=== PATIENT | female | born 1935 | race Caucasian/White ===

== ENCOUNTER 2019-11-03 09:18 | Outpatient (CLI) | payer MEDICARE, SELFPAY ==
--- NOTE | ~2019-11-03 | XR_ITS ---
EXAMINATION: XR chest 2V 11/03/2019 10:08 INDICATION: Cough, chronic. PROCEDURE: 2 view chest COMPARISON: Comparison to multiple prior studies sequentially, with oldest reviewed study dated 03/24. FINDINGS: The lungs are clear. The cardiomediastinal silhouette is within normal limits. There are no pleural effusions. There is no pneumothorax suspected. Interval placement of pacemaker, leads in the right atrium and right ventricle respectively. IMPRESSION: 1: NO ACUTE CARDIOPULMONARY DISEASE. Reviewed, dictated and finalized at location A. ALLY IMPAIRED TEACHER
[2019-11-03 11:22] LABS: Hemoglobin A1C 6.6 % (<5.7)
== END 2019-11-03 09:19 | disposition home or self-care (01) ==
PROVIDERS: PCP Family Medicine; Visit Provider Family Medicine
DX: R05 Cough (principal); R73.01 Impaired fasting glucose
CPT/HCPCS: 36415; 71046; 83036

== ENCOUNTER 2020-06-20 13:25 | Outpatient (CLI) | payer MEDICARE, SELFPAY ==
--- NOTE | ~2020-06-20 | US_ITS ---
US breast RT limited DATE: 06/20/2020 13:58 INDICATION: Patient fell one week ago and struck right breast on nightstand. Right breast trauma; he matoma to right breast at 10-12:00 4 cm from nipple. TECHNIQUE: High-resolution ultrasound imaging of the right breast targeted at the area of complaint a t 10-12:00 COMPARISON: 04/13/2019 bilateral digital screening mammogram FINDINGS: There are multiple scattered sonolucent spaces, the largest measuring 4.7 x 8 mm. No suspic ious mass or shadowing is evident. IMPRESSION: BI-RADS Category 2: Benign Reviewed, dictated and finalized at Location A. Reviewed, dictated and finalized at location A. IMPRESSION: BI-RADS Category 2: Benign
== END 2020-06-20 13:26 | disposition home or self-care (01) ==
LOC: ANHIMG 13:32
PROVIDERS: PCP Family Medicine; Visit Provider Nurse Practitioner
DX: S20.01XA Contusion of right breast, initial encounter (principal); X58.XXXA Exposure to other specified factors, initial encounter; N64.4 Mastodynia
CPT/HCPCS: 76642

== ENCOUNTER 2020-12-05 13:18 | Outpatient (CLI) | payer MEDICARE, SELFPAY | END 2020-12-05 13:19 | disposition home or self-care (01) | LOC: ANHLAB 13:18 | PROVIDERS: PCP Internal Medicine; Visit Provider Internal Medicine | DX: N39.0 Urinary tract infection, site not specified (principal) | CPT/HCPCS: 87077; 87086; 87088 ==

== ENCOUNTER 2020-12-07 10:35 | Outpatient (CLI) | payer MEDICARE, SELFPAY | END 2020-12-07 10:36 | disposition home or self-care (01) | PROVIDERS: PCP Internal Medicine; Visit Provider Internal Medicine | DX: N39.0 Urinary tract infection, site not specified (principal) | CPT/HCPCS: 87086; 87088 ==

== ENCOUNTER 2020-12-09 08:30 | Emergency (ER) | payer MEDICARE, SELFPAY ==
[2020-12-09] VITALS (14 sets, daily range): BP systolic 105–179; BP diastolic 59–89; PULSE 70–73; RESP 14–20; TEMP 37.1; O2SAT 94–99
--- NOTE | ~2020-12-09 | CT_ITS ---
EXAMINATION: CT brain wo con EXAM DATE: 12/09/2020 11:08 INDICATION: Dizziness. Symptoms 6 hours. Nausea and vomiting. TECHNIQUE: Spiral CT of the head was performed without contrast. Axial, coronal and sagittal images were reviewed. The dose-length product (DLP) for this examination was 605.33 mGy-cm. The exposure w as tailored according to patient size, and iterative reconstruction (ASIR) was used as additional dos e reduction technique. Comparison is made to prior examination from 12/19/2019. FINDINGS: There is no acute intraparenchymal hemorrhage. No evidence of intraparenchymal brain mass lesion. No evidence of acute infarction. Please note that initial head CT has limited sensitivity f or small or acute infarctions. There is moderate periventricular and subcortical hypodensity, nonspec ific but probably related to small vessel ischemic disease. There is mild to moderate prominence of the sulci and ventricles related to cerebral atrophy. There is intracranial carotid arterioscleros is. There are no extra-axial collections. There is no mass effect or midline shift. The orbits are unremarkable. Soft tissue is unremarkable. Mild mucoperiosteal thickening. IMPRESSION: 1. No acute intracranial findings. 2. Chronic age related findings. Reviewed, dictated and finalized at location B. ICIAN NON INVASIVE CARDIOLOGIST
--- NOTE | 2020-12-09 08:33 | ECG_ITS ---
Measurements Intervals [place] Rate: 70 P: 219 IN: 195 QRS: 45 QRSD: 95 T: 62 QT: 390 QTc: 421 Interpretive Statements ELECTRONIC ATRIAL PACEMAKER BORDERLINE ST-T WAVE ABNORMALITY- ANTEROLAT/HIGH LAT LEADS BASELINE ARTIFACT- II, III, AVF, V1, V5-V6 BORDERLINE ECG Electronically Signed On 12-09-2020 8:52:39 MANUFACTURING TECH by Aditya South D.O.
[2020-12-09 09:01] LABS: Basophils Percent Auto 0.3 % (0.2-1.2); Eosinophils Absolute Auto 0.1 K/mm3 (0-0.3); Eosinophils Percent Auto 0.8 % (0-4.4); Hematocrit 40.2 % (37.0-47.0); Hemoglobin 13.5 g/dL (12.0-15.0); Immature Granulocyte Absolute 0.03 K/mm3 (0.00-0.031); Immature Granulocyte Percent A 0.3 % (0-0.5); Lymphocytes Absolute Auto 1.65 K/mm3 (0.9-3.2); Lymphocytes Percent Auto 14.9 % (18.3-44.2); Mean Corpuscular HGB Conc 33.6 g/dl (32-36); Mean Corpuscular Hemoglobin 31.5 pg (26-34); Mean Corpuscular Volume 93.9 fl (80-100); Mean Platelet Volume 9.5 fl (7.4-10.4); Monocytes Absolute Auto 0.4 K/mm3 (0.1-0.6); Neutrophils Absolute Auto 8.9 K/mm3 (1.3-6.7); Neutrophils Percent Auto 79.7 % (45.5-73.1); Platelet Count Result 184 k/mm3 (150-375); Red Blood Count 4.28 M/mm3 (4.2-5.4); Red Cell Distribution Width 12.1 % (11.5-14.5); White Blood Count 11.1 K/mm3 (4.5-10.0)
[2020-12-09 09:13] LABS: Add Urine Microscopic? NO; Appearance Urine Clear (Clear); Bilirubin Urine Negative (Negative); Blood Urine Negative (Negative); Color Urine Yellow (Yellow); Glucose Urine UA Negative (Negative); Ketones Urine Negative (Negative); Leukocyte Esterase Ur Negative LEU/UL (Negative); Nitrate Urine Negative (Negative); Protein Urine Negative (Negative); Urobilinogen Urine Negative mg/dL (<2.0)
[2020-12-09 09:14] LABS: Alanine Aminotransferase 21 U/L (4-35); Albumin Level 4.2 g/dL (3.5-5.1); Alkaline Phosphatase 90 U/L (38-126); Anion Gap 5 mmol/L (8-16); Aspartate Amino Transferase 30 U/L (14-36); Bilirubin,Total 0.4 mg/dL (0.2-1.3); Blood Urea Nitrogen 29 mg/dL (7-17); Calcium 9.6 mg/dL (8.4-10.2); Carbon Dioxide 26 mmol/L (22-30); Chloride 107 mmol/L (98-107); Estimated CRCL calculation 39 ml/min; Estimated Glomerular Filt Rate 60; Glucose 181 mg/dL (65-105); Potassium 3.9 mmol/L (3.4-5.0); Sodium 138 mmol/L (137-145)
--- NOTE | 2020-12-09 11:04 | ED.DIZZY ---
HPI - Dizziness General Chief Complaint: Dizziness Stated Complaint: vertigo, n/v, weakness Time Seen by Provider: 12/09/20 10:00 Source: patient Mode of arrival: EMS Limitations: no limitations History of Present Illness HPI Narrative: 85 years old white female woke up this morning with dizziness, everything is pains, associated with nausea and dry heaves. Patient reports the symptoms started 5 days ago, intermittently mainly during daytime. Never happened overnight. Patient had history of vertigo. Patient reports starting new physical therapy for back pain with a lot of head and neck movement 1 week ago. Which probably triggered her vertigo again. Patient received meclizine prior to arrival. Patient denies any fever, chills, chest pain, shortness of breath, exposure to anybody known having COVID-19. Related Data Home Medications Medication Instructions Recorded Confirmed aspirin 81 mg tablet,delayed 81 mg PO DAILY 12/17/19 12/01/20 release atorvastatin 10 mg tablet 10 mg PO DAILY 12/17/19 12/01/20 calcium carbonate 500 mg calcium 500 mg PO DAILY 12/17/19 12/01/20 (1,250 mg) tablet felodipine 5 mg tablet,extended 5 mg PO DAILY 12/17/19 12/01/20 release 24 hr losartan 50 mg tablet 50 mg PO DAILY 12/17/19 12/01/20 magnesium 250 mg tablet 250 mg PO DAILY 12/17/19 12/01/20 omeprazole 40 mg capsule,delayed 40 mg PO DAILY 12/17/19 12/01/20 release potassium 99 mg tablet 99 mg PO DAILY 12/17/19 12/01/20 ascorbic acid (vitamin C) [Vitamin 500 mg PO DAILY 12/19/19 12/01/20 C] biotin 5,000 mcg PO DAILY 12/19/19 12/01/20 cyanocobalamin (vitamin B-12) 1,000 mcg PO DAILY 12/19/19 12/01/20 [Vitamin B-12] Allergies Allergy/AdvReac Type Severity Reaction Status Date / Time Sulfa (Sulfonamide Allergy Intermediate upset Verified 12/09/20 08:49 Antibiotics) stomach, problem breathing acetaminophen Allergy Unknown Unknown Verified 12/09/20 08:49 amitriptyline Allergy Unknown Muscle Verified 12/09/20 08:49 Spasms amlodipine Allergy Unknown Unknown Verified 12/09/20 08:49 cefuroxime Allergy Unknown Diarrhea, Verified 12/09/20 08:49 vomiting cilostazol Allergy Unknown Palpitation Verified 12/09/20 08:49 s codeine Allergy Unknown Muscle Pain Verified 12/09/20 08:49 divalproex sodium Allergy Unknown Muscle Pain Verified 12/09/20 08:49 hydrocodone Allergy Unknown Muscle Pain Verified 12/09/20 08:49 Review of Systems Review of Systems: Narrative: CONSTITUTIONAL: Denies fever, chills, or sweats. EYES: Denies visual changes, redness, or discharge. ENT: Denies rhinorrhea, congestion, sore throat, or otalgia. CARDIOVASCULAR: Denies chest pain, palpitations, or edema. RESPIRATORY: Denies cough or dyspnea. GASTROINTESTINAL: Denies abdominal pain, nausea, vomiting, or diarrhea. GENITOURINARY: Denies dysuria or hematuria. SKIN: Denies rash or itching. MUSCULOSKELETAL: Denies back pain, joint pain, or myalgia. NEUROLOGIC: Denies headache, numbness, or weakness. PSYCHIATRIC: Denies anxiety or depression. [facility] Past Medical History Medical History BMI 28.0-28.9,adult BMI 29.0-29.9,adult BMI 30.0-30.9,adult Degenerative arthritis of knee, bilateral Heart disease History of arthritis History of peripheral vascular disease Stent placement in 2019(Sarkis) Surgical History Surgical History History of arthroscopy of knee 01/01/2019 09/07/2015 History of cholecystectomy 11/25/1984 History of tonsillectomy Pacemaker Family History Family History Mother Carcinoma of colon Father Malignant neoplasm of prostate Other Diabetes mellitus Family history of cardiovascular disease Family history of mental disorder Hypertension Social History Social History Smoking status: Former smoker (20 y
[2020-12-09] MEDS: ONDANSETRON INJ 4 MG/2 ML VIAL IV PUSH (11:17)
[2020-12-09] MEDS: diazePAM INJ (*CRX) 10 MG/2 ML SYRINGE 2.5 MG IV PUSH ×2 (11:18→13:17)
[2020-12-09] MEDS: SODIUM CHLORIDE 0.9% IV 1,000 ML 500 ML IV CONT (11:19)
--- NOTE | 2020-12-09 12:15 | PC.NURSE ---
Pt taken to the bathroom using the pam steady, able to ambulate back to the room with minimal assistance
--- NOTE | 2020-12-09 12:57 | PC.NURSE ---
Awaiting disposition, Pt ambulated with RN with no difficulties. Informed Dr Chairez
--- NOTE | 2020-12-09 13:24 | PC.NURSE ---
Pt ambulated to the bathroom with minimal assistance
== END 2020-12-09 15:52 | disposition home or self-care (01) ==
PROVIDERS: Emergency Provider Emergency Medicine; PCP Internal Medicine
DX: H81.10 Benign paroxysmal vertigo, unspecified ear (principal); M17.0 Bilateral primary osteoarthritis of knee; I73.9 Peripheral vascular disease, unspecified; Z95.5 Presence of coronary angioplasty implant and graft; Z79.82 Long term (current) use of aspirin; Z87.891 Personal history of nicotine dependence; Z95.0 Presence of cardiac pacemaker; R94.31 Abnormal electrocardiogram [ECG] [EKG]
CPT/HCPCS: 36415; 51701; 70450; 80053; 81003; 85025; 93005; 96361; 96374; 96375; 96376; 99284; J2405; J3360; J7030

== ENCOUNTER → 2020-12-17 09:46 | Outpatient (CLI) | payer MEDICARE, SELFPAY ==
--- NOTE | ~2020-12-17 | MM_ITS ---
EXAMINATION: MM screening yvonne BI w stacy HISTORY: Screening TECHNIQUE: Craniocaudal and mediolateral oblique 3-D tomosynthesis images were obtained and synthetic 2-D images were generated. CAD analysis was submitted and interpreted. COMPARISON: Comparison to multiple prior studies sequentially, with oldest reviewed study dated 04/2014. BREAST PARENCHYMAL COMPOSITION: The breasts are heterogeneously dense, which may obscure small masses . FINDINGS: There is no evidence of suspicious mass, calcification, or architectural distortion to sugg est malignancy in either breast. There has been no suspicious interval change. IMPRESSION: 1. No mammographic evidence of malignancy. 2. Recommend routine screening mammography in one year. BI-RADS Category 1: Negative Reviewed, dictated and finalized at location A. NOLOGY TEACHER
== END ==
PROVIDERS: PCP Internal Medicine; Visit Provider Obstetrics & Gynecology Gynecology
DX: Z12.31 Encounter for screening mammogram for malignant neoplasm of breast (principal)
CPT/HCPCS: 77063; 77067

== ENCOUNTER 2021-01-24 08:14 | Outpatient (CLI) | payer MEDICARE, SELFPAY ==
[2021-01-24 10:28] LABS: Hemoglobin A1C 6.1 % (<5.7)
== END 2021-01-24 08:15 | disposition home or self-care (01) ==
PROVIDERS: PCP Internal Medicine; Visit Provider Nurse Practitioner
DX: R73.9 Hyperglycemia, unspecified (principal)
CPT/HCPCS: 36415; 83036

== ENCOUNTER 2021-04-05 09:23 | Outpatient (CLI) | payer MEDICARE, SELFPAY ==
[2021-04-05 10:16] LABS: Hemoglobin A1C 6.6 % (<5.7)
[2021-04-05 10:19] LABS: Alanine Aminotransferase 22 U/L (4-35); Albumin Level 4.2 g/dL (3.5-5.1); Alkaline Phosphatase 77 U/L (38-126); Anion Gap 5 mmol/L (8-16); Aspartate Amino Transferase 27 U/L (14-36); Bilirubin,Total 0.4 mg/dL (0.2-1.3); Blood Urea Nitrogen 26 mg/dL (7-17); Calcium 9.7 mg/dL (8.4-10.2); Carbon Dioxide 29 mmol/L (22-30); Chloride 106 mmol/L (98-107); Cholesterol 168 mg/dL (0-200); Estimated Glomerular Filt Rate 47; Glucose 134 mg/dL (65-105); HDL Direct 40 mg/dL; Potassium 4.7 mmol/L (3.4-5.0); Sodium 140 mmol/L (137-145); Triglycerides 307 mg/dL (<150)
[2021-04-05 10:30] LABS: LDL Cholesterol Direct 76 mg/dL
[2021-04-05 10:48] LABS: Thyroid Stimulating Hormone 0.292 uIU/mL (0.465-4.680)
== END 2021-04-05 09:24 | disposition home or self-care (01) ==
PROVIDERS: PCP Internal Medicine; Visit Provider Internal Medicine
DX: R79.89 Other specified abnormal findings of blood chemistry (principal); I10 Essential (primary) hypertension; R73.01 Impaired fasting glucose; E78.5 Hyperlipidemia, unspecified; Z51.81 Encounter for therapeutic drug level monitoring; Z79.899 Other long term (current) drug therapy
CPT/HCPCS: 36415; 80053; 80061; 83036; 84443

== ENCOUNTER → 2021-04-22 03:50 | Outpatient (CLI) | payer MEDICARE, SELFPAY ==
[2021-04-22 19:45] LABS: SARS-CoV-2 RNA PCR Negative
== END ==
PROVIDERS: PCP Internal Medicine; Visit Provider Internal Medicine Critical Care Medicine
DX: Z01.812 Encounter for preprocedural laboratory examination (principal); Z20.822 Contact with and (suspected) exposure to COVID-19
CPT/HCPCS: C9803; U0003; U0005

== ENCOUNTER 2021-04-25 11:51 | Outpatient (CLI) | payer MEDICARE, SELFPAY ==
--- NOTE | 2021-05-08 13:12 | WPDSLEEPSTUD ---
Sleep Study Date of Study: 04/25/21 Ordering Provider: Fredrick Loza APRN Interpreting Physician: aMrya Pineda MD Sleep Study Type: Split Polysomnogram Height: 1.6 m Weight: 72.575 kg Body Mass Index: 28.3 Neck Circumference (inches): 15 Higbee: 4 Reason for Sleep Study history of sleep apnea, has not used CPAP in years, has increased daytime fatigue and sleepiness 01/22/2013 - split night study - moderate MATHEW with AHI 18.1, heavy snoring, CPAP 6 cm; BMI was 28, same as now Sleep History Rachelle Ashford has a history of obstructive sleep apnea, used CPAP in the past. She has been off of it for several years. She is having increased daytime fatigue and wants to start treatment again. She has frequent nocturia, wakes every 2 hours to urinate. She rarely awakens from sleep feeling short of breath. She occasionally awakens at night with heartburn, belching or coughing. She does not snore and does not snore loudly enough that others complain about it. She rarely has trouble sleeping with a cold. She rarely wakes up gasping for breath at night. She really has breathing problems at night observed by others. She does not sweat excessively at night or notice her heart pounding or beating irregularly at night. She frequently falls asleep during the day, occasionally falls asleep involuntarily, never falls asleep while driving. She does not fall asleep while exerting physical effort. She occasionally has loss of muscle tone with strong emotion. She occasionally has daytime difficulties due to excessive sleepiness. She does not feel paralyzed on waking or falling asleep. She occasionally has vivid dreamlike scenes upon awakening or falling asleep. She never feels afraid to go to sleep. She rarely remembers her dreams. She occasionally has racing thoughts. She does not feel sad, depressed, or anxious. She does not notice parts of her body jerking and she does not kick during the night. She occasionally has crawling and aching feelings in her legs, occasionally has leg pain at night. She does not have morning jaw pain and does not grind her teeth during sleep. She occasionally is bothered by pain during the day, occasionally awakened by pain at night and occasionally wakes up feeling stiff in the morning with sore achy muscles and pain in the neck and spine. She has memory problems, fatigue, dizziness. Normal bedtime is 10:00 p.m. falling asleep within 5 minutes waking 5 times during the night to urinate. She will stay awake for 1-3 minutes. She wakes the morning at 6:00 a.m.. She estimates getting 4-5 hours of sleep overnight. She takes naps in the afternoon or evening. A short nap is not refreshing. She is usually drowsy in the morning for 2 hours or longer. She feels better in the afternoon compared to the morning. Habits: Quit tobacco 2004. No current caffeine, alcohol or recreational drugs. [facility] Past Medical History Medical History (Updated 05/08/21 @ 13:27 by Marya Pineda MD) BMI 28.0-28.9,adult BMI 29.0-29.9,adult BMI 30.0-30.9,adult Coronary artery disease involving [place] coronary artery of [place] heart Degenerative arthritis of knee, bilateral Essential (primary) hypertension Heart disease History of arthritis History of peripheral vascular disease Stent placement in 2019(Sarkis) Hyperlipidemia MATHEW (obstructive sleep apnea) Surgical History Surgical History (Updated 01/25/21 @ 11:21 by Fredrick Loza APRN) History of arthroscopy of knee 01/01/2019 09/07/2015 History of cholecystectomy 11/25/1984 History of intravascular stent placement History of tonsillectomy Pacemaker Family History Family History Mother Carcinoma of colon Father Malignant neoplasm of prostate Other Diabetes mellitus Family history of cardiovascular disease Family history of mental disorder Hypertension Social History Social History (Updated 05/04/21
[2021-05-08 13:13] VITALS: BMI 28.3
== END 2021-04-26 07:17 | disposition home or self-care (01) ==
LOC: ANHCSM 11:52
PROVIDERS: PCP Internal Medicine; Visit Provider Nurse Practitioner
DX: G47.33 Obstructive sleep apnea (adult) (pediatric) (principal)
CPT/HCPCS: 95811

== ENCOUNTER 2021-06-06 14:13 | Outpatient (CLI) | payer MEDICARE, SELFPAY ==
--- NOTE | ~2021-06-06 | CT_ITS ---
EXAMINATION: CT abdomen pelvis wo con DATE: 06/06/2021 14:51 INDICATION: Lower abdominal pain. Chronic cystitis. Hematuria. TECHNIQUE: Computed tomography (CT) of the abdomen and pelvis was performed without intravenous contr ast. Automated exposure control and iterative reconstruction technique were employed. Exam dose: 549 .56 mGy-cm total exam DLP. COMPARISON: 04/30/2013 CT abdomen pelvis with IV contrast material FINDINGS: Right fat-containing foramen of Bochdalek hernia. Mild discoid atelectasis or scarring in the anterior basilar segment of the left lower lobe. 4 mm nodule, lateral basilar right lower lobe. Right atrial and right ventricular pacemaker leads. No pericardial effusion. Coronary artery calcific ations. Small sliding hiatal hernia. The liver is unremarkable. The gallbladder is absent. No bile duct dilatation. Multiple calcified spl enic granulomas. No splenomegaly. There is pancreatic atrophy. No pancreatic mass lesion, calcification or ductal dilatation. Normal morphology of the adrenal glands. No renal mass lesion or urinary tract calculus or hydroureteronephrosis is detected. There is abdominal aortic calcification. There are calcifications at the origin of the superior and i nferior mesenteric and celiac arteries and especially bilateral renal arteries. No abdominal aortic a neurysm. No intraperitoneal or retroperitoneal or pelvic mass lesion or adenopathy or ascites is evident. The uterus and adnexal areas and urinary bladder appear unremarkable. Normal appendix. No bowel obstruction, bowel wall thickening, pneumatosis or intraperitoneal free air . Small fat-containing umbilical hernia. Degenerative spurring of the thoracic and lumbar spine. No suspicious osteolytic or osteoblastic lesi ons are noted. IMPRESSION: Small sliding hiatal hernia Extensive atherosclerosis Reviewed, dictated and finalized at Location A. Reviewed, dictated and finalized at location B.
--- NOTE | ~2021-06-06 | XR_ITS ---
EXAMINATION: XR abdomen/kub 1V EXAM DATE: 06/06/2021 14:44 INDICATION: Chronic cystitis w/o hematuria, lower abd pain . TECHNIQUE: Frontal projection(s) of the abdomen for interpretation. There is no prior study for ivet tanner. FINDINGS: There is expected amount of colonic stool and gas. No small bowel dilation, nonobstructiv e bowel gas pattern. Calcifications in the pelvis are believed to be phleboliths. There is no orga nomegaly suspected. Sizable bridging thoracolumbar endplate osteophytes. Mild lumbar levoscoliosis. IMPRESSION: Unremarkable abdomen x-ray exam. Reviewed, dictated and finalized at location A.
== END 2021-06-06 14:14 | disposition home or self-care (01) ==
LOC: ANHIMG 14:16
PROVIDERS: PCP Internal Medicine; Visit Provider Nurse Practitioner Adult Health
DX: N30.20 Other chronic cystitis without hematuria (principal); K44.9 Diaphragmatic hernia without obstruction or gangrene; I70.90 Unspecified atherosclerosis
CPT/HCPCS: 74018; 74176

== ENCOUNTER 2021-08-11 09:48 | Outpatient (CLI) | payer MEDICARE, SELFPAY ==
[2021-08-11 10:38] LABS: Alanine Aminotransferase 31 U/L (4-35); Albumin Level 4.3 g/dL (3.5-5.1); Alkaline Phosphatase 73 U/L (38-126); Anion Gap 8 mmol/L (8-16); Aspartate Amino Transferase 31 U/L (14-36); Bilirubin,Total 0.3 mg/dL (0.2-1.3); Blood Urea Nitrogen 34 mg/dL (7-17); Calcium 9.7 mg/dL (8.4-10.2); Carbon Dioxide 27 mmol/L (22-30); Chloride 108 mmol/L (98-107); Cholesterol 151 mg/dL (0-200); Estimated Glomerular Filt Rate 53; Glucose 143 mg/dL (65-110); HDL Direct 34 mg/dL; Potassium 4.3 mmol/L (3.4-5.0); Sodium 143 mmol/L (137-145); Triglycerides 189 mg/dL (<150)
[2021-08-11 10:49] LABS: LDL Cholesterol Direct 74 mg/dL
[2021-08-11 10:58] LABS: Hemoglobin A1C 6.7 % (<5.7)
== END 2021-08-11 09:49 | disposition home or self-care (01) ==
PROVIDERS: PCP Internal Medicine; Visit Provider Internal Medicine
DX: I10 Essential (primary) hypertension (principal); E11.9 Type 2 diabetes mellitus without complications; E78.5 Hyperlipidemia, unspecified
CPT/HCPCS: 36415; 80053; 80061; 83036

== ENCOUNTER 2021-09-20 14:30 | Outpatient (RCR) | payer MEDICARE, SELFPAY ==
[2021-08-01 15:28] VITALS: BMI 29.2
== END 2021-09-22 10:28 | disposition home or self-care (01) ==
LOC: ANHDMC 14:30
PROVIDERS: PCP Internal Medicine; Visit Provider Internal Medicine
DX: E11.9 Type 2 diabetes mellitus without complications (principal); Z71.89 Other specified counseling; Z71.3 Dietary counseling and surveillance
CPT/HCPCS: 97802; G0108; G0109

== ENCOUNTER 2021-11-22 09:13 | Outpatient (CLI) | payer MEDICARE, BC, SELFPAY ==
[2021-11-22 09:52] LABS: Alanine Aminotransferase 32 U/L (4-35); Albumin Level 4.2 g/dL (3.5-5.1); Alkaline Phosphatase 81 U/L (38-126); Anion Gap 9 mmol/L (8-16); Aspartate Amino Transferase 29 U/L (14-36); Bilirubin,Total 0.5 mg/dL (0.2-1.3); Blood Urea Nitrogen 31 mg/dL (7-17); Calcium 9.6 mg/dL (8.4-10.2); Carbon Dioxide 27 mmol/L (22-30); Chloride 106 mmol/L (98-107); Cholesterol 179 mg/dL (0-200); Estimated Glomerular Filt Rate 53; Glucose 132 mg/dL (65-110); HDL Direct 35 mg/dL; Potassium 4.3 mmol/L (3.4-5.0); Sodium 142 mmol/L (137-145); Triglycerides 179 mg/dL (<150)
[2021-11-22 10:02] LABS: LDL Cholesterol Direct 102 mg/dL
[2021-11-22 10:12] LABS: Hemoglobin A1C 6.5 % (<5.7)
== END 2021-11-22 09:14 | disposition home or self-care (01) ==
PROVIDERS: PCP Internal Medicine; Visit Provider Nurse Practitioner
DX: E78.49 Other hyperlipidemia (principal); E11.9 Type 2 diabetes mellitus without complications
CPT/HCPCS: 36415; 80053; 80061; 83036

== ENCOUNTER 2021-12-06 12:55 | Outpatient (CLI) | payer MEDICARE, BC, SELFPAY ==
--- NOTE | ~2021-12-06 | XR_ITS ---
EXAMINATION: XR chest 2V DATE: 12/06/2021 13:20 INDICATION: Cough. TECHNIQUE: Frontal and lateral views of the chest were obtained. COMPARISON: Chest 2 views 11/03/2019 FINDINGS: Calcified left lung nodules and calcified left hilar lymph nodes are consistent with old gr anulomatous disease. No pleural effusion or pneumothorax. The heart size is normal. There is a left c hest wall pacer with leads in the right atrium and right ventricle. IMPRESSION: 1. No acute cardiopulmonary disease. Reviewed, dictated and finalized at location B. MACY OPERATIONS SPECIALIST
== END 2021-12-06 12:56 | disposition home or self-care (01) ==
PROVIDERS: PCP Internal Medicine; Visit Provider Internal Medicine
DX: R05.9 Cough, unspecified (principal); Z95.9 Presence of cardiac and vascular implant and graft, unspecified; I10 Essential (primary) hypertension
CPT/HCPCS: 71046

== ENCOUNTER → 2021-12-15 03:09 | Outpatient (CLI) | payer MEDICARE, SELFPAY ==
[2021-12-15 16:41] LABS: Influenza A QL RT-PCR Negative (Negative); Influenza B QL RT-PCR Negative (Negative); SARS-CoV-2 RNA PCR Negative
== END ==
PROVIDERS: PCP Internal Medicine; Visit Provider Internal Medicine
DX: Z20.822 Contact with and (suspected) exposure to COVID-19 (principal)
CPT/HCPCS: 87502; C9803; U0003; U0005

== ENCOUNTER 2022-01-23 15:54 | Emergency (ER) | payer MEDICARE, SELFPAY ==
--- NOTE | ~2022-01-23 | XR_ITS ---
XR hip LT min 3V w AP pelvis DATE: 01/23/2022 18:58 INDICATION: Fall. Hip and knee pain. TECHNIQUE: AP pelvis. AP, lateral and crosstable lateral views of left hip COMPARISON: None FINDINGS: Osteopenia. There is degenerative disc disease at L3-4, L4-5 and particularly L5-S1. Lumbar levoscoliosis. The pubic symphysis and sacroiliac joints are intact. No pelvic fracture or bone destruction is detec jessica. No fracture or dislocation, avascular necrosis or bone destruction of the left hip. 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 GER ORDER
--- NOTE | ~2022-01-23 | XR_ITS ---
XR knee LT min 4V DATE: 01/23/2022 17:55 INDICATION: Left knee pain and swelling TECHNIQUE: 4 views COMPARISON: 06/01/2020 left knee FINDINGS: There is diffuse osteopenia. There is prominent periarticular spurring at the patellofemoral joint consistent with osteoarthritis. There is mild/moderate loss of joint space and mild particular spurring at the medial compartment an d minimal lateral tibial plateau spurring. No fracture or dislocation or joint effusion, periosteal reaction or bone destruction, radiopaque int ra-articular loose body or chondrocalcinosis. Femoral, popliteal and trifurcation artery calcifications. 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 WELDER
[2022-01-23 16:21] VITALS: BP 164/56; PULSE 69; RESP 16; TEMP 36.3; O2SAT 99
--- NOTE | 2022-01-23 20:14 | ED.LOWEXIN ---
HPI - Extremity Injury (Lower) General Chief Complaint: Extremity Injury, Lower <Jennifer Tyler PA-C - Last Filed: 01/24/22 01:55> Stated Complaint: left knee injury <HERBERT Figueroa Last Filed: 01/24/22 01:55> Time Seen by Provider: 01/23/22 18:12 <Jennifer Tyler PA-C - Last Filed: 01/24/22 01:55> Source: patient <HERBERT Figueroa Last Filed: 01/24/22 01:55> Mode of arrival: ambulatory <HERBERT Figueroa Last Filed: 01/24/22 01:55> Limitations: no limitations <HERBERT Figueroa Last Filed: 01/24/22 01:55> History of Present Illness HPI Narrative: This is an 86-year-old female who presents to the ED with complaints of left knee and left hip pain status post fall 1 week ago. Patient reports she slipped and fell on ice and landed on her left side. She did not hit her head or lose consciousness and denied having any prodromal symptoms prior to the fall. She has been able to ambulate since, but complains of increasing pain over the past couple days. She does have a history of extensive arthritis and has received cortisone injections in her knees in the past. Patient denies any significant swelling or redness/warmth surrounding her knee or hip. She also denies any weakness, numbness/tingling, fevers, chills, urinary/bowel incontinence, saddle anesthesia, back pain. Patient has a walker that she occasionally uses for ambulation. <Jennifer Tyler PA-C - Last Filed: 01/24/22 01:55> Related Data Home Medications: Home Medications Medication Instructions Recorded Confirmed aspirin 81 mg tablet,delayed 81 mg PO DAILY 12/17/19 01/08/22 release atorvastatin 10 mg tablet 10 mg PO DAILY 12/17/19 01/08/22 calcium carbonate 500 mg calcium 500 mg PO DAILY 12/17/19 01/08/22 (1,250 mg) tablet felodipine 5 mg tablet,extended 5 mg PO DAILY 12/17/19 01/08/22 release 24 hr losartan 50 mg tablet 50 mg PO DAILY 12/17/19 01/08/22 magnesium 250 mg tablet 250 mg PO DAILY 12/17/19 01/08/22 potassium 99 mg tablet 99 mg PO DAILY 12/17/19 01/08/22 ascorbic acid (vitamin C) [Vitamin 500 mg PO DAILY 12/19/19 01/08/22 C] biotin 5,000 mcg PO DAILY 12/19/19 01/08/22 cyanocobalamin (vitamin B-12) 1,000 mcg PO DAILY 12/19/19 01/08/22 [Vitamin B-12] clopidogrel 75 mg tablet 75 mg PO DAILY 01/25/21 01/08/22 <Jennifer Tyler PA-C - Last Filed: 01/24/22 01:55> Allergies/Adverse Reactions: Allergies Allergy/AdvReac Type Severity Reaction Status Date / Time cefuroxime Allergy Severe Diarrhea, Verified 01/08/22 14:07 vomiting codeine Allergy Severe Muscle Pain Verified 01/08/22 14:07 Sulfa (Sulfonamide Allergy Intermediate upset Verified 01/08/22 14:07 Antibiotics) stomach, problem breathing amitriptyline Allergy Mild Muscle Verified 01/08/22 14:07 Spasms amlodipine Allergy Mild Nausea Verified 01/08/22 14:07 cilostazol Allergy Mild Palpitation Verified 01/08/22 14:07 s divalproex sodium Allergy Mild Muscle Pain Verified 01/08/22 14:07 hydrocodone Allergy Mild Muscle Pain Verified 01/08/22 14:07 <Jennifer Tyler PA-C - Last Filed: 01/24/22 01:55> Review of Systems Review of Systems: CONSTITUTIONAL: Denies fever, chills, or sweats. CARDIOVASCULAR: Denies chest pain or edema. RESPIRATORY: Denies dyspnea. GASTROINTESTINAL: Denies abdominal pain, nausea, vomiting, or diarrhea, urinary/bowel incontinence. SKIN: Denies erythema, swelling, warmth around knee/hip. Denies rash or itching. MUSCULOSKELETAL: Reports left knee pain, left hip pain. Denies back pain, joint pain, or myalgia. NEUROLOGIC: Denies syncope, headache, numbness/tingling, or weakness. <HERBERT Figueroa Last Filed: 01/24/22 01:55> All systems reviewed & are unremarkable except as noted in HPI and below <Jennifer Tyler PA-C - Last Filed: 01/24/22 01:55> [facility] Past Medical History Medical History: Medical History
[2022-01-23 20:48] VITALS: PULSE 80; RESP 16; O2SAT 98
== END 2022-01-23 20:49 | disposition home or self-care (01) ==
PROVIDERS: Emergency Provider Emergency Medicine; PCP Internal Medicine
DX: S89.92XA Unspecified injury of left lower leg, initial encounter (principal); S79.912A Unspecified injury of left hip, initial encounter; I25.10 Atherosclerotic heart disease of native coronary artery without angina pectoris; I51.9 Heart disease, unspecified; I73.9 Peripheral vascular disease, unspecified; E78.5 Hyperlipidemia, unspecified; M17.0 Bilateral primary osteoarthritis of knee; G47.33 Obstructive sleep apnea (adult) (pediatric); Z95.5 Presence of coronary angioplasty implant and graft; Z79.82 Long term (current) use of aspirin; M51.36 Other intervertebral disc degeneration, lumbar region; M85.88 Other specified disorders of bone density and structure, other site; W00.0XXA Fall on same level due to ice and snow, initial encounter
CPT/HCPCS: 73502; 73564; 99284

== ENCOUNTER → 2022-02-06 13:05 | Outpatient (CLI) | payer MEDICARE, SELFPAY ==
--- NOTE | ~2022-02-06 | MM_ITS ---
EXAMINATION: MM screening yvonne BI w stacy HISTORY: Screening mammogram, family history of breast cancer in her daughter. TECHNIQUE: Craniocaudal and mediolateral oblique 3-D tomosynthesis images were obtained and synthetic 2-D images were generated. CAD analysis was submitted and interpreted. COMPARISON: 12/17/2020, 04/13/2019, 04/09/2018 BREAST PARENCHYMAL COMPOSITION: There are scattered areas of fibroglandular density. FINDINGS: Scattered benign-appearing calcifications are present. There is no suspicious mass, calcifi cation, or architectural distortion to suggest malignancy in either breast. There has been no suspici ous interval change. IMPRESSION: 1. No mammographic evidence of malignancy. 2. Recommend routine screening mammography while the patient remains in good health. BI-RADS Category 2: Benign finding(s). Reviewed, dictated and finalized at location A. IMPRESSION: 1. No mammographic evidence of malignancy. 2. Recommend routine screening mammography while the patient remains in good he alth. BI-RADS Category 2: Benign finding(s).
== END ==
PROVIDERS: PCP Internal Medicine; Visit Provider Obstetrics & Gynecology Gynecology
DX: Z12.31 Encounter for screening mammogram for malignant neoplasm of breast (principal)
CPT/HCPCS: 77063; 77067

== ENCOUNTER 2022-02-10 08:40 | Emergency (ER) | payer MEDICARE, SELFPAY ==
[2022-02-10 08:54] VITALS: BP 144/62; PULSE 70; RESP 18; TEMP 36.6; O2SAT 98
--- NOTE | 2022-02-10 09:30 | ED.LOWEXIN ---
HPI - Extremity Injury (Lower) General Chief Complaint: Extremity Injury, Lower Stated Complaint: left leg pain after cortisone shot Time Seen by Provider: 02/10/22 08:58 Source: patient Mode of arrival: ambulatory Limitations: no limitations History of Present Illness HPI Narrative: 86-year-old female presents today with complaints of left hip/buttock pain worse over the last 2 days. Patient denies any recent injuries, falls. Patient has history of bilateral knee injections within the last week. Patient recently seen here on 3 1 imaging done at that time. No acute injuries noted. X-ray did note Osteopenia, Multilevel degenerative disc disease and levoscoliosis of lumbar spine, No fracture or dislocation or bone destruction of the left hip. Patient currently rating the pain 10 out of a 10. Patient has been using Tylenol at home without relief. Related Data Home Medications Medication Instructions Recorded Confirmed aspirin 81 mg tablet,delayed 81 mg PO DAILY 12/17/19 01/08/22 release atorvastatin 10 mg tablet 10 mg PO DAILY 12/17/19 01/08/22 calcium carbonate 500 mg calcium 500 mg PO DAILY 12/17/19 01/08/22 (1,250 mg) tablet felodipine 5 mg tablet,extended 5 mg PO DAILY 12/17/19 01/08/22 release 24 hr losartan 50 mg tablet 50 mg PO DAILY 12/17/19 01/08/22 magnesium 250 mg tablet 250 mg PO DAILY 12/17/19 01/08/22 potassium 99 mg tablet 99 mg PO DAILY 12/17/19 01/08/22 ascorbic acid (vitamin C) [Vitamin 500 mg PO DAILY 12/19/19 01/08/22 C] biotin 5,000 mcg PO DAILY 12/19/19 01/08/22 cyanocobalamin (vitamin B-12) 1,000 mcg PO DAILY 12/19/19 01/08/22 [Vitamin B-12] clopidogrel 75 mg tablet 75 mg PO DAILY 01/25/21 01/08/22 Allergies Allergy/AdvReac Type Severity Reaction Status Date / Time cefuroxime Allergy Severe Diarrhea, Verified 02/10/22 09:23 vomiting codeine Allergy Severe Muscle Pain Verified 02/10/22 09:23 Sulfa (Sulfonamide Allergy Intermediate upset Verified 02/10/22 09:23 Antibiotics) stomach, problem breathing amitriptyline Allergy Mild Muscle Verified 02/10/22 09:23 Spasms amlodipine Allergy Mild Nausea Verified 02/10/22 09:23 cilostazol Allergy Mild Palpitation Verified 02/10/22 09:23 s divalproex sodium Allergy Mild Muscle Pain Verified 02/10/22 09:23 hydrocodone Allergy Mild Muscle Pain Verified 02/10/22 09:23 Review of Systems Review of Systems: CONSTITUTIONAL: Denies fever, chills, or sweats. EYES: Denies visual changes, redness, or discharge. ENT: Denies rhinorrhea, congestion, sore throat, or otalgia. CARDIOVASCULAR: Denies chest pain, palpitations, or edema. RESPIRATORY: Denies cough or dyspnea. GASTROINTESTINAL: Denies abdominal pain, nausea, vomiting, or diarrhea. GENITOURINARY: Denies dysuria or hematuria. SKIN: Denies rash or itching. MUSCULOSKELETAL: Left hip pain. Denies back pain or myalgia. NEUROLOGIC: Denies headache, numbness, dizziness, or weakness. PSYCHIATRIC: Denies anxiety or depression. [facility] Past Medical History Medical History BMI 28.0-28.9,adult BMI 29.0-29.9,adult BMI 30.0-30.9,adult Coronary artery disease involving [place] coronary artery of [place] heart Degenerative arthritis of knee, bilateral Essential (primary) hypertension Heart disease History of arthritis History of peripheral vascular disease Stent placement in 2019(Sarkis) Hyperlipidemia MATHEW (obstructive sleep apnea) Surgical History Surgical History History of arthroscopy of knee 01/01/2019 09/07/2015 History of cholecystectomy 11/25/1984 History of intravascular stent placement History of tonsillectomy Pacemaker Family History Family History Mother Carcinoma of colon Father Malignant neoplasm of prostate Other Diabetes mellitus Family history of cardiovascular disease Family history of m
[2022-02-10] MEDS: diazePAM (*CRX) 2 MG TABLET 1 MG PO (09:55)
[2022-02-10] MEDS: traMADol HCL (*CRX) 50 MG TABLET 25 MG PO (09:55)
== END 2022-02-10 11:37 | disposition home or self-care (01) ==
PROVIDERS: Emergency Provider Nurse Practitioner Family; PCP Internal Medicine
DX: M51.16 Intervertebral disc disorders with radiculopathy, lumbar region (principal); I25.10 Atherosclerotic heart disease of native coronary artery without angina pectoris; M17.0 Bilateral primary osteoarthritis of knee; I10 Essential (primary) hypertension; I73.9 Peripheral vascular disease, unspecified; E78.5 Hyperlipidemia, unspecified; M85.80 Other specified disorders of bone density and structure, unspecified site; G47.33 Obstructive sleep apnea (adult) (pediatric); Z95.0 Presence of cardiac pacemaker; Z87.891 Personal history of nicotine dependence
CPT/HCPCS: 99283; A9270; J1100

== ENCOUNTER 2022-03-01 09:07 | Outpatient (CLI) | payer MEDICARE, SELFPAY ==
--- NOTE | ~2022-03-01 | CT_ITS ---
EXAMINATION: CT lumbar spine wo con DATE: 03/01/2022 09:31 INDICATION: Left-sided sciatica. Other specified dorsopathies, lumbar region. TECHNIQUE: Computed tomography (CT) of the lumbar spine was performed without intravenous contrast. A utomated exposure control and iterative reconstruction technique were employed. The dose-length produ ct was 617.43 mGy-cm. COMPARISON: Lumbar spine MRI 10/24/16 FINDINGS: There is 3 mm anterolisthesis of L4 on L5. Vertebral body heights are normal. There is mild ly decreased disc height at L2-L3 and L4-L5 and severely decreased disc at L5-S1. There are bridging endplate osteophytes at L5-S1. The following disc levels are specifically discussed: L1-L2: There is a central protrusion. There is mild bilateral facet joint osteoarthritis. There is no neural foraminal stenosis. There is mild central canal stenosis. L2-L3: The disc is mildly bulging. There is mild bilateral facet joint osteoarthritis. There is mild bilateral neural foraminal stenosis. There is no central canal stenosis. L3-L4: The disc is mildly bulging. There is moderate bilateral facet joint osteoarthritis. There is m ild bilateral neural foraminal stenosis. There is mild central canal stenosis. L4-L5: The disc is bulging. There is severe bilateral facet joint osteoarthritis. There is mild bilat eral neural foraminal stenosis. There is moderate central canal stenosis. L5-S1: The disc is bulging. There is severe bilateral facet joint osteoarthritis. There is mild bilat eral neural foraminal stenosis. There is mild central canal stenosis. IMPRESSION: 1. Moderate lumbar spondylosis, stable from 10/24/2016. Reviewed, dictated and finalized at location A.
== END 2022-03-01 09:08 | disposition home or self-care (01) ==
PROVIDERS: PCP Internal Medicine; Visit Provider Internal Medicine
DX: M53.86 Other specified dorsopathies, lumbar region (principal); M47.816 Spondylosis without myelopathy or radiculopathy, lumbar region
CPT/HCPCS: 72131

== ENCOUNTER 2022-05-03 12:14 | Outpatient (CLI) | payer MEDICARE, SELFPAY ==
[2022-05-03 12:42] LABS: Alanine Aminotransferase 19 U/L (6-35); Albumin Level 4.2 g/dL (3.5-5.1); Alkaline Phosphatase 72 U/L (38-126); Aspartate Amino Transferase 22 U/L (14-36); Bilirubin,Total 0.4 mg/dL (0.2-1.3)
== END 2022-05-03 12:15 | disposition home or self-care (01) ==
LOC: ANHLAB 12:18
PROVIDERS: PCP Internal Medicine; Visit Provider Internal Medicine
DX: Z51.81 Encounter for therapeutic drug level monitoring (principal); Z79.899 Other long term (current) drug therapy
CPT/HCPCS: 36415; 80076

== ENCOUNTER 2022-05-14 08:49 | Outpatient (CLI) | payer MEDICARE, SELFPAY ==
[2022-05-14 09:48] LABS: Alanine Aminotransferase 21 U/L (6-35); Albumin Level 4.1 g/dL (3.5-5.1); Alkaline Phosphatase 62 U/L (38-126); Aspartate Amino Transferase 21 U/L (14-36); Bilirubin,Total 0.4 mg/dL (0.2-1.3)
== END 2022-05-14 08:50 | disposition home or self-care (01) ==
LOC: ANHLAB 08:52
PROVIDERS: PCP Internal Medicine; Visit Provider Internal Medicine
DX: Z51.81 Encounter for therapeutic drug level monitoring (principal)
CPT/HCPCS: 36415; 80076

== ENCOUNTER 2022-05-17 10:58 | Outpatient (CLI) | payer MEDICARE, SELFPAY ==
[2022-05-17 11:19] LABS: Appearance Urine Clear (Clear); Bilirubin Urine Negative (Negative); Blood Urine Negative (Negative); Color Urine Yellow (Yellow); Glucose Urine UA Negative (Negative); Ketones Urine Negative (Negative); Leukocyte Esterase Ur Trace LEU/UL (Negative); Nitrate Urine Negative (Negative); Protein Urine Negative (Negative); Specific Grav Ur 1.015 (1.001-1.035); Urobilinogen Urine 0.2 mg/dL (<2.0); pH Urine 6.5 (5.0-9.0)
[2022-05-17 11:31] LABS: Mucus Urine Rare /lpf; RBC Urine 0-2 /hpf (0-2); Squamous Epithelial Cell Urine Rare /hpf (Few); WBC Urine 0-3 /hpf
[2022-05-17 11:36] LABS: Add Urine Microscopic? YES
== END 2022-05-17 10:59 | disposition home or self-care (01) ==
LOC: ANHLAB 11:02
PROVIDERS: PCP Internal Medicine; Visit Provider Internal Medicine
DX: R30.0 Dysuria (principal)
CPT/HCPCS: 81001

== ENCOUNTER → 2022-06-08 12:35 | Outpatient (CLI) | payer MEDICARE, SELFPAY ==
--- NOTE | ~2022-06-08 | US_ITS ---
EXAMINATION: US transvaginal DATE: 06/08/2022 13:46 INDICATION: Pelvic pain Comparison:No prior studies for comparison. TECHNIQUE: Multiple endovaginal sonographic images of the pelvis performed. FINDINGS: The uterus measures 5.5 x 3.1 x 4.7 cm. The endometrial complex measures 4 mm. The ovaries are not visualized. No free fluid in the pelvis. There is no free fluid in the pelvis. There are no abnormal masses seen on either side. IMPRESSION: 1. Unremarkable pelvic ultrasound. Reviewed, dictated and finalized at location A.
== END ==
PROVIDERS: PCP Internal Medicine; Visit Provider Nurse Practitioner
DX: R10.2 Pelvic and perineal pain (principal)
CPT/HCPCS: 76830

== ENCOUNTER 2022-07-10 13:51 | Outpatient (CLI) | payer MEDICARE, SELFPAY ==
--- NOTE | ~2022-07-10 | CT_ITS ---
EXAMINATION: CT abdomen pelvis wo con DATE: 07/10/2022 14:16 INDICATION: Pelvic and perineal pain TECHNIQUE: Computed tomography (CT) of the abdomen and pelvis was performed without intravenous contr ast. The dose-length product (DLP) was 576.80 mGy-cm. Automated exposure control and iterative recons truction technique were employed. COMPARISON: 06/06/2021, 04/30/2013 FINDINGS: The lung bases are clear. The heart size is normal. There is a small sliding hiatal hernia. Pneumobilia is noted. There is a large diverticulum of the second/third portion of the duodenum. Pun ctate calcifications in an otherwise normal spleen likely represent healed granulomatous disease. The pancreas and adrenal glands are normal. The gallbladder is surgically absent. There is a chronic 6 m m mildly hyperattenuating lesion of left kidney, likely a proteinaceous cyst. The right kidney is unr emarkable. There is calcified atherosclerosis of the aorta and many of the other arteries. No patholo gically enlarged abdominal or pelvic lymph nodes are identified. There is no free intraperitoneal gas or evidence of bowel obstruction. There is a small amount of intraluminal gas in the urinary bladder . There is severe lumbar spondylosis. A fat-containing umbilical hernia is noted. The appendix is nor mal. IMPRESSION: 1. No CT correlate for the patient's symptoms. 2. Small volume of gas in the urinary bladder. Correlate for history of recent catheterization. The a bsence of such history could reflect cystitis. Reviewed, dictated and finalized at location A. IMPRESSION: 1. No CT correlate for the patient's symptoms. 2. Small volume of gas in the urinary bladder. Correlate for history of recent catheterization. The absence of such history could reflect cystitis.
== END 2022-07-10 13:52 | disposition home or self-care (01) ==
PROVIDERS: PCP Internal Medicine; Visit Provider Internal Medicine
DX: R10.2 Pelvic and perineal pain (principal); R93.41 Abnormal radiologic findings on diagnostic imaging of renal pelvis, ureter, or bladder
CPT/HCPCS: 74176

== ENCOUNTER 2022-07-14 09:05 | Outpatient (CLI) | payer MEDICARE, SELFPAY ==
[2022-07-14 09:34] LABS: Alanine Aminotransferase 20 U/L (6-35); Albumin Level 4.4 g/dL (3.5-5.1); Alkaline Phosphatase 73 U/L (38-126); Anion Gap 10 mmol/L (8-16); Aspartate Amino Transferase 21 U/L (14-36); Bilirubin,Total 0.6 mg/dL (0.2-1.3); Blood Urea Nitrogen 24 mg/dL (7-17); Calcium 9.2 mg/dL (8.4-10.2); Carbon Dioxide 29 mmol/L (22-30); Chloride 104 mmol/L (98-107); Cholesterol 177 mg/dL (0-200); Estimated Glomerular Filt Rate > 60; Glucose 140 mg/dL (65-110); HDL Direct 38 mg/dL; Potassium 4.1 mmol/L (3.4-5.0); Sodium 143 mmol/L (137-145); Triglycerides 294 mg/dL (<150)
[2022-07-14 09:44] LABS: Hemoglobin A1C 6.9 % (<5.7)
[2022-07-14 09:56] LABS: LDL Cholesterol Direct 79 mg/dL
== END 2022-07-14 09:06 | disposition home or self-care (01) ==
LOC: ANHLAB 09:07
PROVIDERS: PCP Internal Medicine; Visit Provider Internal Medicine
DX: E11.9 Type 2 diabetes mellitus without complications (principal); E78.49 Other hyperlipidemia; I10 Essential (primary) hypertension
CPT/HCPCS: 36415; 80053; 80061; 83036

== ENCOUNTER 2022-09-23 13:17 | Emergency (ER) | payer MEDICARE, SELFPAY ==
[2022-09-23] VITALS (27 sets, daily range): BP systolic 122–161; BP diastolic 61–84; PULSE 70–73; RESP 11–24; TEMP 36.6; O2SAT 94–99
--- NOTE | ~2022-09-23 | XR_ITS ---
EXAMINATION: XR chest 1V portable Exam Date/Time: 09/23/2022 14:15 CDT HISTORY: dizziness Comparison: 12/06/2021. RESULT: Lines, tubes, and devices: None. Lungs and pleura: Calcified right upper lobe granuloma. Right basilar scar/atelectasis. Senescent ch audrey. Cardiomediastinal silhouette: Stable. Other: No acute osseous or upper abdominal finding. IMPRESSION: No acute cardiopulmonary process. Reviewed, dictated and finalized at location K.
--- NOTE | 2022-09-23 13:29 | ECG_ITS ---
Measurements Intervals [place] Rate: 70 P: 74 [place]: 190 QRS: 19 QRSD: 89 T: 72 QT: 378 QTc: 409 Interpretive Statements ELECTRONIC ATRIAL PACEMAKER NONSPECIFIC T-WAVE ABNORMALITY ABNORMAL RHYTHM ECG COMPARED TO ECG 12/09/2020 08:39:43 NO SIGNIFICANT CHANGE Electronically Signed On 09-24-2022 12:22:26 CDT by Ok Tsai M.D.
[2022-09-23 14:21] LABS: Basophils Percent Auto 0.3 % (0.2-1.2); Eosinophils Absolute Auto 0.1 K/mm3 (0-0.3); Eosinophils Percent Auto 0.8 % (0-4.4); Hematocrit 39.7 % (37.0-47.0); Hemoglobin 13.2 g/dL (12.0-15.0); Immature Granulocyte Absolute 0.04 K/mm3 (0.00-0.031); Immature Granulocyte Percent A 0.4 % (0-0.5); Lymphocytes Absolute Auto 3.42 K/mm3 (0.9-3.2); Mean Corpuscular HGB Conc 33.2 g/dl (32-36); Mean Corpuscular Hemoglobin 31.7 pg (26-34); Mean Corpuscular Volume 95.4 fl (80-100); Mean Platelet Volume 9.9 fl (7.4-10.4); Monocytes Absolute Auto 0.7 K/mm3 (0.1-0.6); Monocytes Percent Auto 6.8 % (2.6-8.5); Neutrophils Absolute Auto 5.3 K/mm3 (1.3-6.7); Neutrophils Percent Auto 55.7 % (45.5-73.1); Platelet Count Result 218 k/mm3 (150-375); Red Blood Count 4.16 M/mm3 (4.2-5.4); Red Cell Distribution Width 12.3 % (11.5-14.5); White Blood Count 9.5 K/mm3 (4.5-10.0)
[2022-09-23 14:34] LABS: Alanine Aminotransferase 23 U/L (6-35); Albumin Level 4.5 g/dL (3.5-5.1); Alkaline Phosphatase 62 U/L (38-126); Anion Gap 12 mmol/L (8-16); Aspartate Amino Transferase 29 U/L (14-36); Bilirubin,Total 0.4 mg/dL (0.2-1.3); Blood Urea Nitrogen 29 mg/dL (7-17); Calcium 9.3 mg/dL (8.4-10.2); Carbon Dioxide 26 mmol/L (22-30); Chloride 104 mmol/L (98-107); Estimated CRCL calculation 35 ml/min; Estimated Glomerular Filt Rate 53; Glucose 131 mg/dL (65-110); Potassium 3.9 mmol/L (3.4-5.0); Sodium 142 mmol/L (137-145)
[2022-09-23] MEDS: SODIUM CHLORIDE 0.9% IV 1,000 ML 999 ML IV CONT (16:27)
--- NOTE | 2022-09-23 16:27 | ED.GENADULT ---
HPI - General Adult General Chief complaint: Dizziness Stated complaint: bruising around pacemaker Time Seen by Provider: 09/23/22 14:00 History of Present Illness HPI narrative: Patient is an 86-year-old female who presents ER with 2 concerns. First concern is she woke up this morning was looking in the mirror and noticed there is some bruising around her pacemaker site. This gave her concern. Denies any trauma. No fevers chills or sweats. No chest pain or chest pressure. No racing heart. Patient did also report that this morning she experienced episode of dizziness. She reports it occurred while she was just sitting there. Short lives. Not associated with sitting or standing. She has history of vertigo but this felt slightly different. She does not think. Related Data Home Medications Medication Instructions Recorded Confirmed aspirin 81 mg tablet,delayed 81 mg PO DAILY 12/17/19 08/26/22 release (Adult Low Dose Aspirin) calcium carbonate 500 mg calcium 500 mg PO DAILY 12/17/19 08/26/22 (1,250 mg) tablet (Calcium 500) felodipine 5 mg tablet,extended 5 mg PO DAILY 12/17/19 08/26/22 release 24 hr losartan 50 mg tablet 50 mg PO DAILY 12/17/19 08/26/22 potassium 99 mg tablet 99 mg PO DAILY 12/17/19 08/26/22 ascorbic acid (vitamin C) 500 mg 500 mg PO DAILY 12/19/19 08/26/22 tablet (Vitamin C) cyanocobalamin (vitamin B-12) 1,000 mcg PO DAILY 12/19/19 08/26/22 1,000 mcg tablet (Vitamin B-12) acetaminophen 650 mg 650 mg PO Q6H PRN 02/19/22 08/26/22 tablet,extended release (Tylenol Arthritis Pain) biotin 2,500 mcg capsule 10,000 mcg PO DAILY 02/19/22 08/26/22 omega 9-bcx-oyk-fish oil 300 1 cap PO DAILY 02/19/22 08/26/22 mg-1,000 mg capsule (Fish Oil) fosfomycin tromethamine 3 gram 3 g PO ONCE 08/23/22 08/26/22 oral packet magnesium 250 mg tablet 500 mg PO DAILY 08/23/22 08/26/22 Allergies Allergy/AdvReac Type Severity Reaction Status Date / Time cefuroxime Allergy Severe Diarrhea, Verified 09/23/22 13:26 vomiting codeine Allergy Severe Muscle Pain Verified 09/23/22 13:26 Sulfa (Sulfonamide Allergy Intermediate upset Verified 09/23/22 13:26 Antibiotics) stomach, problem breathing amitriptyline Allergy Mild Muscle Verified 09/23/22 13:26 Spasms amlodipine Allergy Mild Nausea Verified 09/23/22 13:26 cilostazol Allergy Mild Palpitation Verified 09/23/22 13:26 s divalproex sodium Allergy Mild Muscle Pain Verified 09/23/22 13:26 hydrocodone Allergy Mild Muscle Pain Verified 09/23/22 13:26 Review of Systems Review of Systems: All systems reviewed & are unremarkable except as noted in HPI and below Constitutional: Constitutional: Denies chills, Denies fatigue and Denies fever(s) ENT: Denies nasal congestion and Denies sore throat Cardiovascular: Cardiovascular: Denies chest pain, Denies rapid heart rate and Denies radiating jaw, neck or arm pain Respiratory: Respiratory: Denies cough and Denies dyspnea Gastrointestinal: Gastrointestinal: Denies abdominal pain, Denies nausea and Denies vomiting Neurologic: Reports dizziness, Denies syncope, Denies headache(s), Denies focal weakness and Denies numbness PMFSH Past Medical History Medical History (Updated 09/23/22 @ 16:34 by Wander Estrada MD) Abnormal white blood cell count Bradycardia Coronary artery disease involving [place] coronary artery of [place] heart Degenerative arthritis of knee, bilateral Essential (primary) hypertension Heart disease History of arthritis History of peripheral vascular disease Stent placement in 2019(Sarkis) Hyperlipidemia MATHEW (obstructive sleep apnea) Other fatigue Surgical History Surgical History History of arthroscopy of knee 01/01/2019 09/07/2015 History of cholecystectomy 11/25/1984 History of intravascular stent placement History of tonsillectomy Pacemaker Family History Family History (Reviewed
== END 2022-09-23 17:49 | disposition home or self-care (01) ==
PROVIDERS: Emergency Provider Emergency Medicine; PCP Physician Assistant
DX: R42 Dizziness and giddiness (principal); I25.10 Atherosclerotic heart disease of native coronary artery without angina pectoris; I11.9 Hypertensive heart disease without heart failure; E78.5 Hyperlipidemia, unspecified; I73.9 Peripheral vascular disease, unspecified; G47.33 Obstructive sleep apnea (adult) (pediatric); M17.0 Bilateral primary osteoarthritis of knee; Z95.0 Presence of cardiac pacemaker; Z87.891 Personal history of nicotine dependence; Z79.82 Long term (current) use of aspirin; R94.31 Abnormal electrocardiogram [ECG] [EKG]
CPT/HCPCS: 36415; 71045; 80053; 85025; 93005; 96360; 99284; J7030

== ENCOUNTER 2022-12-25 10:55 | Outpatient (CLI) | payer MEDICARE, SELFPAY ==
[2022-12-25 11:41] LABS: Strep Group A RT-PCR NOT DETECTED (Negative)
== END 2022-12-25 10:56 | disposition home or self-care (01) ==
LOC: ANHLAB 10:58
PROVIDERS: PCP Physician Assistant; Visit Provider Physician Assistant
DX: J02.9 Acute pharyngitis, unspecified (principal)
CPT/HCPCS: 87651

== ENCOUNTER 2023-03-28 13:02 | Observation (INO) | payer MEDICARE, SELFPAY ==
[2023-03-28] VITALS (40 sets, daily range): BP systolic 133–177; BP diastolic 46–131; PULSE 69–77; RESP 12–22; TEMP 37.1; O2SAT 89–100; BMI 28.7
--- NOTE | ~2023-03-28 | XR_ITS ---
EXAMINATION: XR chest 2V DATE: 03/28/2023 15:14 INDICATION: Weakness. TECHNIQUE: Frontal and lateral views of the chest were obtained. COMPARISON: Chest single view 09/23/2022, CT abdomen and pelvis 03/28/2023 FINDINGS: The chest demonstrates clear lungs without pneumonia, pleural effusion, or pneumothorax. Ca rdiomegaly. There is a left chest wall pacer with leads in the right atrium and right ventricle. IMPRESSION: 1. Cardiomegaly. Reviewed, dictated and finalized at location A. IMPRESSION: 1. Cardiomegaly.
--- NOTE | ~2023-03-28 | CT_ITS ---
EXAMINATION: CT abd pelvis lumbar w con DATE: 03/28/2023 15:08 INDICATION: pelvic pain TECHNIQUE: Computed tomography (CT) of the lumbar spine, abdomen and pelvis was performed with 100 mL Omnipaque-350 intravenous contrast. Automated exposure control and iterative reconstruction techniqu e were employed. The dose-length product was 809.11 mGy-cm. COMPARISON: CT lumbar spine 03/01/2022; CT abdomen and pelvis 06/06/2021. FINDINGS: ABDOMEN AND PELVIS: Lower thorax: Cardiac pacing wires. Coronary stents. Small hiatal hernia and duodenal diverticulum. Liver: Hepatomegaly. Steatosis. Biliary/Gallbladder: Gallbladder is absent. Pneumobilia. Pancreas: Fatty atrophy. Spleen: Granulomatous calcifications. Adrenals:No mass. Kidneys: Bilateral subcentimeter hypodensities, too small to characterize but likely represent cysts. No mass, stone, or hydronephrosis. GI tract: Mild distal esophageal and moderate antral wall edema. 4 cm duodenal diverticulum. No small or large bowel dilation. Normal appendix. Mesentery/Peritoneum: No ascites, mass, or free air. Retroperitoneum: No mass. Atherosclerotic abdominal aortic and/or arterial calcifications. Pelvis: Bladder wall inflammatory changes. Normal-appearing uterus.. Soft Tissues: Uncomplicated fat-containing umbilical hernia. LUMBAR SPINE: 5 nonrib-bearing lumbar-type vertebral bodies. Pedicles intact. Stable grade 1 anteroli sthesis at L4-5. Vertebral body heights preserved. Multilevel disc space narrowing and bridging lencho nal osteophytes. Vacuum phenomenon at L4-5. No pars defect. Severe facet arthropathy in the lower lum bar spine. Severe central canal stenosis at L4-5. Moderate bilateral neural foraminal narrowing at L4 -5. Transverse fracture of S4 with one bone width anterior displacement of the distal fragments. IMPRESSION: Esophagitis/gastritis. Hepatomegaly with steatosis. Cystitis. Transverse fracture at L4. Reviewed, dictated and finalized at location K. IMPRESSION: Esophagitis/gastritis. Hepatomegaly with steatosis. Cystitis. Transverse fractu re at L4.
--- NOTE | ~2023-03-28 | CT_ITS ---
EXAMINATION: CT brain wo con DATE: 03/28/2023 15:06 INDICATION: Altered mental status. TECHNIQUE: Computed tomography (CT) of the head was performed without intravenous contrast. The mA wa s adjusted according to patient size. Iterative reconstruction technique was employed. The dose-lengt h product was 605.33 mGy-cm. COMPARISON: Head CT 12/09/2020 FINDINGS: There are scattered areas of low attenuation in the cerebral white matter. There is no intr acranial hemorrhage, acute infarction, or abnormal intracranial mass lesion. The ventricles are magda l in size. There are likely changes of ocular lens replacement surgeries. There is mild mucosal thick ening in the paranasal sinuses. There are small bilateral mastoid effusions. IMPRESSION: 1. Stable extensive nonspecific cerebral white matter disease, which likely represents chronic small vessel ischemic disease. Reviewed, dictated and finalized at location A. IMPRESSION: 1. Stable extensive nonspecific cerebral white matter disease, which likely rep resents chronic small vessel ischemic disease.
--- NOTE | 2023-03-28 13:04 | ED.AMS ---
HPI - Altered Mental Status General Chief Complaint: Altered Mental Status Stated Complaint: AMS, weakness Source: patient, family and EMS Mode of arrival: EMS Limitations: no limitations History of Present Illness HPI narrative: Patient is an 87-year-old female presenting to the emergency department for evaluation of buttock pain following a ground-level fall several days ago as well as confusion and fatigue per family. The time of assessment patient is alert and oriented to person, place and to time. She reports that she fell on a landscaping rock, landing on the landscaping brick directly on her bottom. Patient reports bruising and pain at her bottom. She was seen at the primary care physician's office with reassuring work-up. She has been ambulatory. Denies fever, chills, cough, chest pain, shortness of breath. Patient denies any abdominal pain, nausea or vomiting. She does have a history of urinary tract infection. Reports some frequency of urination without dysuria or hematuria. Patient daughter at bedside states she feels her mom has been more confused than baseline. Says that speech has been slightly garbled but denies any significant slurred speech. Reports that mentation has seemed to improve since she has arrived here in the emergency department. Patient reports she has been taking Tylenol for the buttocks pain. She denies focal weakness or numbness. She has been ambulatory but reports fatigue and generalized weakness. Per daughter, recently placed on ciprofloxacin for a urinary tract infection, has been taking that for 2 days. Related Data Home Medications Medication Instructions Recorded Confirmed aspirin 81 mg tablet,delayed 81 mg PO DAILY 12/17/19 03/26/23 release (Adult Low Dose Aspirin) calcium carbonate 500 mg calcium 500 mg PO DAILY 12/17/19 03/26/23 (1,250 mg) tablet (Calcium 500) felodipine 5 mg tablet,extended 5 mg PO DAILY 12/17/19 03/26/23 release 24 hr losartan 50 mg tablet 50 mg PO DAILY 12/17/19 03/26/23 potassium 99 mg tablet 99 mg PO DAILY 12/17/19 03/26/23 ascorbic acid (vitamin C) 500 mg 500 mg PO DAILY 12/19/19 03/26/23 tablet (Vitamin C) cyanocobalamin (vitamin B-12) 1,000 mcg PO DAILY 12/19/19 03/26/23 1,000 mcg tablet (Vitamin B-12) acetaminophen 650 mg 650 mg PO Q6H PRN 02/19/22 03/26/23 tablet,extended release (Tylenol Arthritis Pain) biotin 2,500 mcg capsule 10,000 mcg PO DAILY 02/19/22 03/26/23 omega 4-tzk-bki-fish oil 300 1 cap PO DAILY 02/19/22 03/26/23 mg-1,000 mg capsule (Fish Oil) fosfomycin tromethamine 3 gram 3 g PO ONCE 08/23/22 03/26/23 oral packet magnesium 250 mg tablet 500 mg PO DAILY 08/23/22 03/26/23 cephalexin 250 mg tablet 250 mg PO Q12H 03/26/23 03/26/23 Allergies Allergy/AdvReac Type Severity Reaction Status Date / Time cefuroxime Allergy Severe Diarrhea, Verified 03/26/23 13:34 vomiting codeine Allergy Severe Muscle Pain Verified 03/26/23 13:34 Sulfa (Sulfonamide Allergy Intermediate upset Verified 03/26/23 13:34 Antibiotics) stomach, problem breathing amitriptyline Allergy Mild Muscle Verified 03/26/23 13:34 Spasms amlodipine Allergy Mild Nausea Verified 03/26/23 13:34 cilostazol Allergy Mild Palpitation Verified 03/26/23 13:34 s divalproex sodium Allergy Mild Muscle Pain Verified 03/26/23 13:34 hydrocodone Allergy Mild Muscle Pain Verified 03/26/23 13:34 Review of Systems Review of Systems: CONSTITUTIONAL: Denies fever, chills, or sweats. Reports fatigue EYES: Denies visual changes, redness, or discharge. ENT: Denies rhinorrhea, congestion, sore throat, or otalgia. CARDIOVASCULAR: Denies chest pain, palpitations, or edema. RESPIRATORY: Denies cough or dyspnea. GASTROINTESTINAL: Denies abdominal pain, nausea, vomiting, or diarrhea. GENITOURINARY: Denies dysuria or hematuria. SKIN: Denies rash or itching. MUSCULOSKELETAL: Reports lower buttock pain, denies other joint pain, or myalgia. NEUROLOGIC: Denie
--- NOTE | 2023-03-28 13:25 | ECG_ITS ---
Measurements Intervals [place] Rate: 71 P: 26 CO: 246 QRS: -18 QRSD: 124 T: 133 QT: 404 QTc: 439 Interpretive Statements ELECTRONIC ATRIAL PACEMAKER LEFT BUNDLE BRANCH BLOCK BASELINE ARTIFACT- I, II, III, AVR, AVL ABNORMAL ECG COMPARED TO ECG 09/23/2022 13:37:45 LEFT BUNDLE-BRANCH BLOCK NOW PRESENT Electronically Signed On 03-28-2023 14:25:24 CDT by Aditya South D.O.
[2023-03-28] MEDS: SODIUM CHLORIDE 0.9% IV 1,000 ML 999 ML IV CONT (13:58)
[2023-03-28 14:24] LABS: Basophils Percent Auto 0.3 % (0.2-1.2); Eosinophils Absolute Auto 0.1 K/mm3 (0-0.3); Eosinophils Percent Auto 0.9 % (0-4.4); Hematocrit 37.7 % (37.0-47.0); Hemoglobin 12.4 g/dL (12.0-15.0); Immature Granulocyte Absolute 0.01 K/mm3 (0.00-0.031); Immature Granulocyte Percent A 0.1 % (0-0.5); Lymphocytes Absolute Auto 2.14 K/mm3 (0.9-3.2); Lymphocytes Percent Auto 31.8 % (18.3-44.2); Mean Corpuscular HGB Conc 32.9 g/dl (32-36); Mean Corpuscular Hemoglobin 31.1 pg (26-34); Mean Corpuscular Volume 94.5 fl (80-100); Mean Platelet Volume 9.7 fl (7.4-10.4); Monocytes Absolute Auto 0.6 K/mm3 (0.1-0.6); Monocytes Percent Auto 9.5 % (2.6-8.5); Neutrophils Absolute Auto 3.9 K/mm3 (1.3-6.7); Neutrophils Percent Auto 57.4 % (45.5-73.1); Platelet Count Result 170 k/mm3 (150-375); Red Blood Count 3.99 M/mm3 (4.2-5.4); Red Cell Distribution Width 12.5 % (11.5-14.5); White Blood Count 6.7 K/mm3 (4.5-10.0)
[2023-03-28 14:28] LABS: Appearance Urine Cloudy (Clear); Bacteria Urine 4+ /hpf; Bilirubin Urine Negative (Negative); Blood Urine Trace (Negative); Color Urine Yellow (Yellow); Glucose Urine UA Negative (Negative); Ketones Urine Negative (Negative); Leukocyte Esterase Ur 3+ LEU/UL (Negative); Nitrate Urine Negative (Negative); Non Pathogenic Casts 0-2; Protein Urine Negative (Negative); RBC Urine 0-2 /hpf (0-2); Specific Grav Ur 1.007 (1.001-1.035); Squamous Epithelial Cell Urine Occasional /hpf (Few); Urobilinogen Urine 0.2 mg/dL (<2.0); WBC Urine >100 /hpf; pH Urine 6.5 (5.0-9.0)
[2023-03-28 14:37] LABS: Add Urine Microscopic? YES
[2023-03-28 14:39] LABS: Alanine Aminotransferase 21 U/L (6-35); Albumin Level 3.9 g/dL (3.5-5.1); Alkaline Phosphatase 55 U/L (38-126); Ammonia < 9 umol/L (9-30); Anion Gap 5 mmol/L (8-16); Aspartate Amino Transferase 20 U/L (14-36); Bilirubin,Total 0.6 mg/dL (0.2-1.3); Blood Urea Nitrogen 26 mg/dL (7-17); Calcium 9.2 mg/dL (8.4-10.2); Carbon Dioxide 27 mmol/L (22-30); Chloride 103 mmol/L (98-107); Estimated CRCL calculation 31 ml/min; Estimated Glomerular Filt Rate 47; Glucose 85 mg/dL (65-110); Potassium 3.9 mmol/L (3.4-5.0); Sodium 135 mmol/L (137-145)
[2023-03-28 14:40] LABS: INR 1.1; Prothrombin Time 14.5 Seconds (11.1-14.7)
[2023-03-28 14:43] LABS: Partial Thromboplastin Time 28.8 SECONDS (22.3-36.8)
[2023-03-28 14:52] LABS: Troponin I < 0.012 ng/mL (0.000-0.034)
--- NOTE | 2023-03-28 14:52 | PC.NURSE ---
Patient off unit to radiology.
[2023-03-28 15:10] LABS: Thyroid Stimulating Hormone 0.638 uIU/mL (0.465-4.680)
--- NOTE | 2023-03-28 17:30 | PC.NURSE ---
Food ordered placed.
--- NOTE | 2023-03-28 19:43 | ADMGEN ---
This patient, Abby Ashford, was admitted to 3 [facility] Room 332-01. Patient/family oriented to hospital policies and general routines including ID bracelet, bed and alarms, visiting hours, pain management, procedures, bathroom and other care routines, personal items, smoking policy, room service/diet, and visiting hours. Information on how to activate the Rapid Response Team has been discussed. Patient/Family are encouraged to report perceived risks to care and to ask questions if they do not understand what they are told or what they should do.
--- NOTE | 2023-03-28 21:05 | PM.IMHP ---
H&P: HPI History of Present Illness Date/Time: 03/28/23 21:05 Chief Complaint: Altered mental status Narrative: This is an 87-year-old female patient was brought to the emergency room for evaluation of buttocks pain following a ground level fall several days ago as well as confusion and fatigue as noted by family. The patient was alert orientated to person place and time upon arrival to the emergency room. Patient reports that she fell on landscaping rocks landing on the landscape be practically on her bottom. The patient reports bruising and pain to her sacral area. She denies any fever chills or any cough. The patient states that a [place] when she urinates. She does have history of urinary tract infection. The patient has frequent urination. Patient is alert and talking without difficulty now. She has been taking Tylenol for her sacral pain. The patient was recently placed on ciprofloxacin for urinary tract infection which she started taking for 2 days. IV fluids, Levaquin, Tylenol and Motrin at been given to the patient. Her sodium was slightly low 135. Creatinine slightly high at 1.10 with a BUN of 26. Her chest x-ray was read as cardiomegaly. CT scan was read as esophagitis/gastritis. Hepatomegaly with steatosis and cystitis. Head CT was read as stable extensive nonspecific cerebral white matter disease which likely represents chronic small vessel ischemic disease. The patient is being admitted to observation status on the date of service of 03/28/2023. Review of Systems Review of Systems: All systems reviewed & are unremarkable except as noted in HPI and below Constitutional: Constitutional: Reports as per HPI and Reports no additional constitutional complaints Eyes: Eyes: Reports as per HPI and Reports no additional eye complaints ENT: Reports system reviewed and no additional complaints, except as documented and Reports Normal hearing present Cardiovascular: Cardiovascular: Reports no additional cardiovascular complaints Respiratory: Respiratory: Reports no additional respiratory complaints and Reports no additional respiratory complaints Gastrointestinal: Gastrointestinal: Reports as per HPI and Reports no additional gastrointestinal complaints Musculoskeletal: Musculoskeletal: Reports no additional musculoskeletal complaints Integumentary/Breasts: Skin/Breast: Reports system reviewed and no additional complaints, except as docu and Reports as per HPI Neurologic: Reports system reviewed and no additional complaints, except as documented, Reports as per HPI and Reports Normal hearing present Psychiatric: Psychiatric: Reports no additional psychiatric complaints and Reports as per HPI Endocrine: Endocrine: Reports no additional endocrine complaints Hematologic/Lymphatic: Hematologic/Lymphatic: Reports no additional hematologic/lymphatic complaints Allergic/Immunologic: Allergic/Immunologic: Reports no additional allergic/immunologic complaints [facility] Past Medical History Medical History Abnormal white blood cell count Bradycardia Coronary artery disease involving [place] coronary artery of [place] heart Degenerative arthritis of knee, bilateral Essential (primary) hypertension Heart disease History of arthritis History of peripheral vascular disease Stent placement in 2019(Sarkis) Hyperlipidemia MATHEW (obstructive sleep apnea) Other fatigue Surgical History Surgical History (Updated 03/28/23 @ 23:57 by Stephania Moseley NP) H/O cataract extraction H/O colonoscopy with polypectomy H/O heart artery stent History of arthroscopy of knee 01/01/2019 09/07/2015 History of cholecystectomy 11/25/1984 History of intravascular stent placement History of tonsillectomy Pacemaker Family History Family History Mother Carcinoma of colon Father Malignant neoplasm of prostate Other Diabetes mellitu
[2023-03-28] MEDS: ACETAMINOPHEN 325 MG TABLET 650 MG PO (21:15)
[2023-03-29 02:49] LABS: Hematocrit 40.9 % (37.0-47.0); Hemoglobin 13.4 g/dL (12.0-15.0); Mean Corpuscular HGB Conc 32.8 g/dl (32-36); Mean Corpuscular Hemoglobin 31.2 pg (26-34); Mean Corpuscular Volume 95.3 fl (80-100); Mean Platelet Volume 9.4 fl (7.4-10.4); Platelet Count Result 173 k/mm3 (150-375); Red Blood Count 4.29 M/mm3 (4.2-5.4); Red Cell Distribution Width 12.4 % (11.5-14.5); White Blood Count 7.6 K/mm3 (4.5-10.0)
[2023-03-29 03:06] LABS: Alanine Aminotransferase 20 U/L (6-35); Albumin Level 3.9 g/dL (3.5-5.1); Alkaline Phosphatase 58 U/L (38-126); Anion Gap 5 mmol/L (8-16); Aspartate Amino Transferase 19 U/L (14-36); Bilirubin,Total 0.6 mg/dL (0.2-1.3); Blood Urea Nitrogen 18 mg/dL (7-17); Calcium 9.2 mg/dL (8.4-10.2); Carbon Dioxide 27 mmol/L (22-30); Chloride 107 mmol/L (98-107); Estimated CRCL calculation 34 ml/min; Estimated Glomerular Filt Rate 53; Glucose 117 mg/dL (65-110); Magnesium 1.7 mg/dL (1.6-2.3); Potassium 4.1 mmol/L (3.4-5.0); Sodium 139 mmol/L (137-145)
[2023-03-29 03:07] LABS: Lactic Acid Reflex 0.7 mmol/L (0.7-2.0)
[2023-03-29 04:34] LABS: Thyroid Stimulating Hormone Reflex 0.178 uIU/mL (0.465-4.68)
[2023-03-29 06:00] VITALS: BP 110/56; PULSE 69; RESP 18; TEMP 36.4; O2SAT 100
[2023-03-29] MEDS: TIZANIDINE HCL 2 MG TABLET PO ×2 (06:16→14:25)
[2023-03-29] MEDS: oxyCODONE HCL (*CRX) 5 MG TAB IR PO ×3 (06:17→21:32)
[2023-03-29] MEDS: ACETAMINOPHEN 325 MG TABLET 650 MG PO ×3 (06:17→14:22)
[2023-03-29 06:55] LABS: Free T4 Free Thyroxine Reflex 1.53 ng/dL (0.78-2.19)
[2023-03-29 08:13] LABS: Total Triiodothyronine (T3) 1.12 NG/ML (0.97-1.69)
[2023-03-29] MEDS: CALCIUM CARBONATE (OSCAL) 500 MG TABLET PO (10:07)
[2023-03-29] MEDS: PANTOPRAZOLE 40 MG TABLET PO ×2 (10:07→16:04)
[2023-03-29] MEDS: CYANOCOBALAMIN 1,000 MCG TABLET 1000 MCG PO (10:07)
[2023-03-29] MEDS: ASCORBIC ACID 500 MG TABLET PO (10:07)
[2023-03-29] MEDS: ATORVASTATIN 10 MG TABLET PO (10:07)
[2023-03-29] MEDS: OMEGA 3 POLYUNSAT FATTY ACIDS 1 GM CAP PO (10:07)
[2023-03-29] MEDS: FENOFIBRATE,MICRONIZED 48 MG TABLET PO (10:07)
[2023-03-29] MEDS: LOSARTAN POTASSIUM 50 MG TABLET PO (10:08)
[2023-03-29] MEDS: ASPIRIN 81 MG ENTERIC TABLET PO (10:08)
[2023-03-29] MEDS: FELODIPINE 5 MG TAB CR PO (10:08)
--- NOTE | 2023-03-29 12:14 | PM.IMPN ---
Progress Note: A&P Assessment and Plan (1) Acute UTI: Code(s): N39.0 - Urinary tract infection, site not specified Status: Acute Assessment and Plan: The patient was started on Levaquin IV. Urine and blood cultures are pending Tailor antibiotics according to cultures and sensitivities. (2) Closed L4 vertebral fracture: Code(s): S32.049A - Unspecified fracture of fourth lumbar vertebra, initial encounter for closed fracture Status: Acute Assessment and Plan: Neurosurgery has been consulted. PT OT evaluation greatly be appreciated product inspection coordinator for rehab facility Continue with analgesics Continue with muscle relaxant (3) Hyperlipidemia: Qualifiers: Hyperlipidemia type: other hyperlipidemia Qualified Code(s): E78.49 - Other hyperlipidemia Code(s): E78.5 - Hyperlipidemia, unspecified Status: Acute Assessment and Plan: Continue with atorvastatin, Ferriday 3, and Tricor (4) Essential (primary) hypertension: Code(s): I10 - Essential (primary) hypertension Status: Acute Assessment and Plan: P.r.n. hydralazine Continue losartan Continue with Cozaar (5) MATHEW (obstructive sleep apnea): Code(s): G47.33 - Obstructive sleep apnea (adult) (pediatric) Status: Acute Assessment and Plan: Continue with BiPAP/CPAP settings as per home setting Plan DVT prophylaxis with SCDs GI prophylaxis with PPI Code status full code Subjective Date/time seen: 03/29/23 12:14 Interval history: 87-year-old female with history of heart disease, hypertension, sleep apnea is presenting with altered mental status and fatigue after a fall a few days ago and currently being treated for a UTI as well as a L4 vertebral fracture. No overnight events noted. No chest pain or shortness of breath. No nausea, vomiting or diarrhea. No fevers or chills. She has complained of constipation. She is requesting a stronger pain medication as well and complaining of dry mouth. She is also requesting Tums. Review of Systems Review of Systems: 12 point review of systems was assessed and was negative except as noted in the HPI Exam Narrative: General: No acute distress, alert and oriented per baseline HEENT: Atraumatic, normocephalic, mucous membranes moist CV: Regular rate and rhythm, S1, S2 Lungs: Clear to auscultation bilaterally, no rales or crackles noted, no wheezes, good air entry Abdomen: Soft, nontender, nondistended Extremities: Normal to inspection Skin: Significant bruising noted over sacral area Psych: Euthymic, normal affect Objective Data Vital Signs Vital Signs: Vital Signs - 24 hr 03/28/23 13:01 03/28/23 13:12 03/28/23 13:08 Temperature Pulse Rate 70 70 75 Respiratory Rate 18 14 Blood Pressure 155/79 H Pulse Oximetry 100 100 Oxygen Delivery Room Air 03/28/23 13:15 03/28/23 13:17 03/28/23 13:30 Temperature Pulse Rate 70 70 70 Respiratory Rate 17 16 15 Blood Pressure 149/131 H Pulse Oximetry 100 100 Oxygen Delivery 03/28/23 13:32 03/28/23 13:46 03/28/23 13:57 Temperature Pulse Rate 70 73 73 Respiratory Rate 15 16 14 Blood Pressure 147/72 H 155/66 H Pulse Oximetry 96 Oxygen Delivery 03/28/23 14:00 03/28/23 14:22 03/28/23 14:35 Temperature Pulse Rate 72 70 70 Respiratory Rate 15 18 14 Blood Pressure Pulse Oximetry 98 89 L Oxygen Delivery 03/28/23 14:45 03/28/23 14:46 03/28/23 15:14 Temperature Pulse Rate 70 70 70 Respiratory Rate 17 19 12 Blood Pressure 154/71 H Pulse Oximetry 99 Oxygen Delivery 03/28/23 15:16 03/28/23 15:50 03/28/23 16:01 Temperature Pulse Rate 70 70 70 Respiratory Rate 18 16 14 Blood Pressure Pulse Oximetry 98 98 100 Oxygen Delivery 03/28/23 16:15 03/28/23 16:17 03/28/23 16:30 Temperature Pulse Rate 73 70 70 Respiratory Rate 16 18 13 Blood Pressure
[2023-03-29 14:00] VITALS: BP 146/66; PULSE 70; RESP 17; TEMP 36.6; O2SAT 99
--- NOTE | 2023-03-29 15:55 | WPDNEUROSGCN ---
Assessment and Plan Assessment and plan (1) Sacral fracture, closed: Code(s): S32.10XA - Unspecified fracture of sacrum, initial encounter for closed fracture Status: Acute Plan HPI: Patient is an 87-year-old female who presented to the emergency department for evaluation of buttock pain following a ground-level fall several days ago as well as confusion and fatigue per family.? She reports that she fell on a landscaping rock, landing on the landscaping brick directly on her bottom.? Patient reports bruising and pain at her bottom.? She was seen at the primary care physician's office with reassuring work-up.? She has been ambulatory.? Denies fever, chills, cough, chest pain, shortness of breath.? Patient denies any abdominal pain, nausea or vomiting.? She does have a history of urinary tract infection.? Reports some frequency of urination without dysuria or hematuria.? Patient daughter at bedside states she feels her mom has been more confused than baseline.? Says that speech has been slightly garbled but denies any significant slurred speech.? Reports that mentation has seemed to improve since she has arrived here in the emergency department. Patient reports she has been taking Tylenol for the buttocks pain.? She denies focal weakness or numbness.? She has been ambulatory but reports fatigue and generalized weakness. Ct imaging in the ED suggested a sacral (tailbone) fracture. Initially the radiology report suggested an L4 fracture but I have reviewed personally and clarified with radgiology that it is a minimally displaced S4 fracture. A/P 87 year old female with fall on bottom, brusing around region of tailbone and imaging showing tailbone fracture No indication for surgical intervention Symptomatic management No need for surgical follow up. I have discussed this with the patient [facility] Past Medical History Medical History (Updated 03/29/23 @ 15:59 by Yashira Jeffers MD) Abnormal white blood cell count Bradycardia Coronary artery disease involving [place] coronary artery of [place] heart Degenerative arthritis of knee, bilateral Essential (primary) hypertension Heart disease History of arthritis History of peripheral vascular disease Stent placement in 2019([facility]) Hyperlipidemia MATHEW (obstructive sleep apnea) Other fatigue Surgical History Surgical History (Updated 03/28/23 @ 23:57 by Stephania Moseley NP) H/O cataract extraction H/O colonoscopy with polypectomy H/O heart artery stent History of arthroscopy of knee 01/01/2019 09/07/2015 History of cholecystectomy 11/25/1984 History of intravascular stent placement History of tonsillectomy Pacemaker Family History Family History Mother Carcinoma of colon Father Malignant neoplasm of prostate Other Diabetes mellitus Family history of cardiovascular disease Family history of mental disorder Hypertension Social History Social History (Updated 03/29/23 @ 00:02 by Stephania Moseley NP) Social History: She is and lives home alone. She is a former smoker. She has 5 children. She is retired Code status full code Smoking packs per day: 1 Smoking cigarettes per day: 20.0 Years smoked: 20 Smoking pack-years: 20.00 Smoking status: Former smoker Tobacco type: cigarettes Second hand tobacco smoke exposure: No Smoking end date: 11/25/04 Alcohol intake: never Substance use: never Substance use type: does not use Lack of Transportation: YES Lack of Food: Never True Current Housing: I Have Housing Concerned About Future Housing: No Difficulty Paying Gas/Electric Bills: No Difficulty Paying for Meds: No Currently Unemployed: No Education: High School Diploma/GED Difficulty w/ Childcare or Family Care: No Living arrangements: alone Occupation/Education: retired Gender identity (if verbalized by the patient): Female Sexual Orientation (if [place]
[2023-03-29] MEDS: CALCIUM CARBONATE (TUMS) 500 MG (200 MG ELEMENTAL) PO ×2 (16:04→21:23)
[2023-03-29 20:23] VITALS: BP 138/64; PULSE 70; RESP 18; TEMP 36.2; O2SAT 99
[2023-03-30 05:40] VITALS: BP 183/78; PULSE 70; RESP 18; TEMP 36.1; O2SAT 100
[2023-03-30 06:14] VITALS: BP 140/88
[2023-03-30 06:30] LABS: Basophils Percent Auto 0.2 % (0.2-1.2); Eosinophils Absolute Auto 0.1 K/mm3 (0-0.3); Eosinophils Percent Auto 0.6 % (0-4.4); Hematocrit 39.9 % (37.0-47.0); Hemoglobin 13.3 g/dL (12.0-15.0); Immature Granulocyte Absolute 0.04 K/mm3 (0.00-0.031); Immature Granulocyte Percent A 0.4 % (0-0.5); Lymphocytes Absolute Auto 2.57 K/mm3 (0.9-3.2); Lymphocytes Percent Auto 26.9 % (18.3-44.2); Mean Corpuscular HGB Conc 33.3 g/dl (32-36); Mean Corpuscular Hemoglobin 31.2 pg (26-34); Mean Corpuscular Volume 93.7 fl (80-100); Mean Platelet Volume 9.8 fl (7.4-10.4); Monocytes Absolute Auto 0.8 K/mm3 (0.1-0.6); Neutrophils Absolute Auto 6.1 K/mm3 (1.3-6.7); Neutrophils Percent Auto 63.9 % (45.5-73.1); Platelet Count Result 173 k/mm3 (150-375); Red Blood Count 4.26 M/mm3 (4.2-5.4); Red Cell Distribution Width 12.5 % (11.5-14.5); White Blood Count 9.5 K/mm3 (4.5-10.0)
[2023-03-30 06:44] LABS: Alanine Aminotransferase 18 U/L (6-35); Albumin Level 3.8 g/dL (3.5-5.1); Alkaline Phosphatase 56 U/L (38-126); Anion Gap 6 mmol/L (8-16); Aspartate Amino Transferase 18 U/L (14-36); Bilirubin,Total 0.6 mg/dL (0.2-1.3); Blood Urea Nitrogen 20 mg/dL (7-17); Calcium 9.6 mg/dL (8.4-10.2); Carbon Dioxide 31 mmol/L (22-30); Chloride 103 mmol/L (98-107); Estimated CRCL calculation 31 ml/min; Estimated Glomerular Filt Rate 47; Glucose 123 mg/dL (65-110); Sodium 140 mmol/L (137-145)
[2023-03-30] MEDS: LOSARTAN POTASSIUM 50 MG TABLET PO (08:21)
[2023-03-30] MEDS: ASCORBIC ACID 500 MG TABLET PO (08:21)
[2023-03-30] MEDS: ACETAMINOPHEN 325 MG TABLET 650 MG PO ×2 (08:21→19:03)
[2023-03-30] MEDS: oxyCODONE HCL (*CRX) 5 MG TAB IR PO ×3 (08:21→19:03)
[2023-03-30] MEDS: OMEGA 3 POLYUNSAT FATTY ACIDS 1 GM CAP PO (08:21)
[2023-03-30] MEDS: ATORVASTATIN 10 MG TABLET PO (08:21)
[2023-03-30] MEDS: CALCIUM CARBONATE (OSCAL) 500 MG TABLET PO (08:22)
[2023-03-30] MEDS: ASPIRIN 81 MG ENTERIC TABLET PO (08:22)
[2023-03-30] MEDS: FELODIPINE 5 MG TAB CR PO (08:22)
[2023-03-30] MEDS: TIZANIDINE HCL 2 MG TABLET PO ×2 (08:22→15:12)
[2023-03-30] MEDS: CYANOCOBALAMIN 1,000 MCG TABLET 1000 MCG PO (08:22)
[2023-03-30] MEDS: FENOFIBRATE,MICRONIZED 48 MG TABLET PO (08:22)
[2023-03-30] MEDS: PANTOPRAZOLE 40 MG TABLET PO ×2 (08:22→19:04)
[2023-03-30 14:00] VITALS: BP 135/80; PULSE 73; RESP 18; TEMP 36.1; O2SAT 99
--- NOTE | 2023-03-30 15:00 | PM.DS ---
DS: Admitting Diagnosis Discharge Date 03/30/23 Admitting Diagnosis back pain/buttocks pain DS: Discharge Diagnosis Discharge Diagnosis (1) Acute UTI: Code(s): N39.0 - Urinary tract infection, site not specified Status: Acute Assessment and Plan: The patient was started on Levaquin IV, urine culture came back e coli, resistant to levaquin, will switch to augmentin Blood cultures NGTD (2) Closed L4 vertebral fracture: Code(s): S32.049A - Unspecified fracture of fourth lumbar vertebra, initial encounter for closed fracture Status: Acute Assessment and Plan: Neurosurgery consult appreciated, no surgical intervention needed, symptomatic care only PT OT evaluation tender coordinator for rehab facility Continue with analgesics Continue with muscle relaxant (3) Hyperlipidemia: Qualifiers: Hyperlipidemia type: other hyperlipidemia Qualified Code(s): E78.49 - Other hyperlipidemia Code(s): E78.5 - Hyperlipidemia, unspecified Status: Acute Assessment and Plan: Continue with atorvastatin, [place] 3, and Tricor (4) Essential (primary) hypertension: Code(s): I10 - Essential (primary) hypertension Status: Acute Assessment and Plan: P.r.n. hydralazine Continue losartan Continue with Cozaar (5) MATHEW (obstructive sleep apnea): Code(s): G47.33 - Obstructive sleep apnea (adult) (pediatric) Status: Acute Assessment and Plan: Continue with BiPAP/CPAP settings as per home setting Plan DVT prophylaxis with SCDs GI prophylaxis with PPI Code status full code DS: Summary Hospital Course Hospital Course: 87-year-old female with history of heart disease, hypertension, sleep apnea is presenting with altered mental status and fatigue after a fall a few days ago and currently being treated for a UTI as well as a L4 vertebral fracture. Neurosurgery was consulted and recommended symptomatic and supportive care only, no surgical intervention necessary. Urine culture came back E coli resistant to fluoroquinolones, sensitive to Augmentin. PT/OT recommending rehab at discharge. See above and med rec for details. Time Spent with Patient Time attestation: Total time spent providing and/or coordinating discharge services: Exam Narrative: General: No acute distress, alert and oriented per baseline HEENT: Atraumatic, normocephalic, mucous membranes moist CV: Regular rate and rhythm, S1, S2 Lungs: Clear to auscultation bilaterally, no rales or crackles noted, no wheezes, good air entry Abdomen: Soft, nontender, nondistended Extremities: Normal to inspection Skin: Significant bruising noted over sacral area Psych: Euthymic, normal affect DS: Data Data Completed and Pending Labs on day of discharge: Labs from last 24 hours 03/30/23 05:41 WBC 9.5 RBC 4.26 Hgb 13.3 Hct 39.9 MCV 93.7 MCH 31.2 MCHC 33.3 RDW 12.5 Plt Count 173 MPV 9.8 Immature Gran % (Auto) 0.4 Neut % (Auto) 63.9 Lymph % (Auto) 26.9 [place] % (Auto) 8.0 Eos % (Auto) 0.6 Baso % (Auto) 0.2 Lymph # (Auto) 2.57 [place] # (Auto) 0.8 H Eos # (Auto) 0.1 Baso # (Auto) 0.0 Abs Immat Gran (auto) 0.04 H Absolute Neuts (auto) 6.1 Absolute Nucleated RBC 0.0 Nucleated RBC % 0.0 Sodium 140 Potassium 4.0 Chloride 103 Carbon Dioxide 31 H Anion Gap 6 L BUN 20 H Creatinine 1.10 H Estim Creat Clear Calc 31 Estimated GFR 47 L Glucose 123 H Calcium 9.6 Total Bilirubin 0.6 AST 18 ALT 18 Alkaline Phosphatase 56 Total Protein 6.0 L Albumin 3.8 Preliminary micro results at discharge 03/29/23 02:41 Blood Culture - Preliminary Blood 03/29/23 02:41 Blood Culture - Preliminary Blood Discharge Plan Discharge Attending physician on discharge: Ashley Alfaro Consulting providers: Yashira Jeffers Discharging Clinician: Ashley Alfaro [facility] Disposition: [facility]
--- NOTE | 2023-06-20 12:00 | PC.NURSE ---
Patient discharged over 2 months ago. Home medications disposed 06/20/23.
== END 2023-03-30 19:24 ==
LOC: ANHED 15:48 → ANH3MEDSUR 03-29 11:58
PROVIDERS: Nurse Practitioner; Admitting Provider Chiropractor; Emergency Provider Emergency Medicine; PCP Family Medicine; Visit Provider Student in an Organized Health Care Education/Training Program
DX: N30.90 Cystitis, unspecified without hematuria (principal); B96.20 Unspecified Escherichia coli [E. coli] as the cause of diseases classified elsewhere; S32.049A Unspecified fracture of fourth lumbar vertebra, initial encounter for closed fracture; S30.0XXA Contusion of lower back and pelvis, initial encounter; W18.30XA Fall on same level, unspecified, initial encounter; E78.5 Hyperlipidemia, unspecified; I10 Essential (primary) hypertension; G47.33 Obstructive sleep apnea (adult) (pediatric); R41.82 Altered mental status, unspecified; K20.90 Esophagitis, unspecified without bleeding; K29.70 Gastritis, unspecified, without bleeding; K76.0 Fatty (change of) liver, not elsewhere classified; R16.0 Hepatomegaly, not elsewhere classified; R53.83 Other fatigue; R53.1 Weakness; I25.10 Atherosclerotic heart disease of native coronary artery without angina pectoris; I44.7 Left bundle-branch block, unspecified; R94.31 Abnormal electrocardiogram [ECG] [EKG]; I51.7 Cardiomegaly; I73.9 Peripheral vascular disease, unspecified; R90.82 White matter disease, unspecified; Z98.62 Peripheral vascular angioplasty status; Z87.891 Personal history of nicotine dependence; Z79.82 Long term (current) use of aspirin; Z79.1 Long term (current) use of non-steroidal anti-inflammatories (NSAID); Z79.899 Other long term (current) drug therapy; Z82.49 Family history of ischemic heart disease and other diseases of the circulatory system; Z81.8 Family history of other mental and behavioral disorders
CPT/HCPCS: 36415; 70450; 71046; 72132; 74177; 80053; 81001; 82140; 83605; 83735; 84439; 84443; 84480; 84484; 85025; 85027; 85610; 85730; 87040; 87077; 87086; 87186; 93005; 96361; 96365; 96366; 97161; 97165; 99285; A9270; G0378; J1956; J7030; Q9967

== ENCOUNTER 2023-05-20 15:52 | Outpatient (CLI) | payer MEDICARE, SELFPAY ==
--- NOTE | ~2023-05-20 | US_ITS ---
Procedure: Duplex Doppler examination of the bilateral carotids. Indication: TIA Technique: Real time, color-flow and pulse wave Doppler examination of the bilateral carotids was performed. Findings: Collier scale ultrasonography of the right neck demonstrated no significant plaque. There was demonstrat ion of normal color-flow and Doppler waveforms within the right common, internal and external carotid arteries. The peak systolic velocities in the right common, internal and external carotid arteries w ere demonstrated to be 65 cm/sec, 54 cm/sec and 100 cm/sec respectively. The right ICA/CCA ratio was 1.3.The proximal right internal carotid artery demonstrates 0% stenosis relative to the normal distal artery lumen diameter. Collier scale sonography of the left neck demonstrated small calcified plaque at the distal left common carotid artery. There was demonstration of normal color-flow and wave forms within the left common, i nternal and external carotid arteries. The peak systolic velocities in the left common, internal and external carotid arteries were demonstrated to be 75cm/sec, 73 cm/sec and 91 cm/sec respectively. The left ICA/CCA ratio was 1.4. The proximal left internal carotid artery demonstrates 0% stenosis relat christine to the normal distal artery lumen diameter. There was antegrade flow demonstrated in the bilateral vertebral arteries. Impression: No hemodynamically significant stenosis of the bilateral internal carotid arteries. Antegrade flow in the bilateral vertebral arteries. Note: The methodology used is an indirect measurement validated against a direct method (such as the NASCET criteria) that compares diameters at the stenosis to the distal ICA. Reviewed, dictated and finalized at location . Impression: No hemodynamically significant stenosis of the bilateral internal carotid arter ies. Antegrade flow in the bilateral vertebral arteries. Note: The methodology used is an indirect measurement validated against a direct meth od (such as the NASCET criteria) that compares diameters at the stenosis to the distal ICA.
== END 2023-05-20 15:53 | disposition home or self-care (01) ==
LOC: ANHIMG 15:54
PROVIDERS: PCP Family Medicine; Visit Provider Physician Assistant
DX: R26.81 Unsteadiness on feet (principal); G45.9 Transient cerebral ischemic attack, unspecified
CPT/HCPCS: 93880

== ENCOUNTER 2023-05-22 07:51 | Outpatient (CLI) | payer MEDICARE, SELFPAY ==
[2023-05-22 08:21] LABS: Basophils Percent Auto 0.2 % (0.2-1.2); Eosinophils Absolute Auto 0.2 K/mm3 (0-0.3); Hematocrit 41.2 % (37.0-47.0); Hemoglobin 13.7 g/dL (12.0-15.0); Immature Granulocyte Absolute 0.04 K/mm3 (0.00-0.031); Immature Granulocyte Percent A 0.5 % (0-0.5); Lymphocytes Absolute Auto 2.25 K/mm3 (0.9-3.2); Mean Corpuscular HGB Conc 33.3 g/dl (32-36); Mean Corpuscular Hemoglobin 31.1 pg (26-34); Mean Corpuscular Volume 93.4 fl (80-100); Mean Platelet Volume 9.8 fl (7.4-10.4); Monocytes Absolute Auto 0.7 K/mm3 (0.1-0.6); Monocytes Percent Auto 7.5 % (2.6-8.5); Neutrophils Absolute Auto 5.5 K/mm3 (1.3-6.7); Neutrophils Percent Auto 63.8 % (45.5-73.1); Platelet Count Result 221 k/mm3 (150-375); Red Blood Count 4.41 M/mm3 (4.2-5.4); Red Cell Distribution Width 13.1 % (11.5-14.5); White Blood Count 8.7 K/mm3 (4.5-10.0)
[2023-05-22 08:34] LABS: Hemoglobin A1C 6.1 % (<5.7)
[2023-05-22 08:41] LABS: Alanine Aminotransferase 17 U/L (6-35); Albumin Level 4.4 g/dL (3.5-5.1); Alkaline Phosphatase 65 U/L (38-126); Anion Gap 6 mmol/L (8-16); Aspartate Amino Transferase 22 U/L (14-36); Bilirubin,Total 0.5 mg/dL (0.2-1.3); Blood Urea Nitrogen 26 mg/dL (7-17); Calcium 9.7 mg/dL (8.4-10.2); Carbon Dioxide 26 mmol/L (22-30); Chloride 108 mmol/L (98-107); Cholesterol 121 mg/dL (0-200); Estimated Glomerular Filt Rate 43; Glucose 140 mg/dL (65-110); HDL Direct 34 mg/dL; Sodium 140 mmol/L (137-145); Triglycerides 235 mg/dL (<150)
[2023-05-22 08:52] LABS: LDL Cholesterol Direct 51 mg/dL
[2023-05-22 10:08] LABS: Folic Acid 8.2 ng/mL (2.76->20); Vitamin B12 > 1000.0 pg/mL (239-931)
== END 2023-05-22 07:52 | disposition home or self-care (01) ==
LOC: ANHLAB 07:54
PROVIDERS: PCP Family Medicine; Visit Provider Physician Assistant
DX: E53.8 Deficiency of other specified B group vitamins (principal); E78.5 Hyperlipidemia, unspecified; I10 Essential (primary) hypertension; N17.9 Acute kidney failure, unspecified; N39.0 Urinary tract infection, site not specified; Z79.899 Other long term (current) drug therapy; E78.49 Other hyperlipidemia; Z86.79 Personal history of other diseases of the circulatory system
CPT/HCPCS: 36415; 80053; 80061; 82607; 82746; 83036; 84443; 85025

== ENCOUNTER 2023-06-05 21:07 | Outpatient (NON) | payer MEDICARE, SELFPAY | END 2023-06-05 21:08 | disposition home or self-care (01) | LOC: ANHLAB 21:11 | PROVIDERS: PCP Family Medicine; Visit Provider Nurse Practitioner Family | DX: N39.0 Urinary tract infection, site not specified (principal) | CPT/HCPCS: 87077; 87086; 87186 ==

== ENCOUNTER 2023-06-14 08:56 | Outpatient (CLI) | payer MEDICARE, SELFPAY ==
--- NOTE | 2023-06-14 09:02 | ECHO_ITS ---
Patient Info Name: Abby Ashford Age: 87 years : 1935 Gender: Female Ht: 63 in Wt: 149 lbs BSA: 1.75 m2 HR: 70 bpm BP: 119 / 72 mmHg Heart Rhythm: Sinus Rhythm Technical Quality: Fair Exam Date: 06/14/2023 9:13 AM Exam Location: [facility] Patient Status: Outpatient Admit Date: 06/14/2023 Staff Ordering Physician: Patrick Puckett PA-C Precipitator Operator: Huyen Nelson RDCS Attending Provider: Patrick Puckett PA-C Referring Physician: Lavern HODGSON; Exam Type: CA echo doppler color flow Study Info Indications - Other intermodal customer service( currrent ) drug therapy Complete two-dimensional, color flow and Doppler transthoracic echocardiogram is performed. Summary 1. Complete two-dimensional, color flow and Doppler transthoracic echocardiogram is performed. 2. Left ventricular chamber dimension is normal. 3. Left ventricular systolic function is hyperdynamic, estimated at >70%. 4. There is moderate concentric increased left ventricular wall thickness. 5. The left ventricular diastolic function is grade I diastolic dysfunction. 6. E/e' 21 is elevated. 7. Linear artifact in right ventricle suggestive of catheter(s), pacemaker lead(s), or ICD lead(s). 8. Linear artifact in the right atrium suggestive of catheter(s), pacemaker lead(s), or ICD lead(s). 9. The mitral valve has moderately calcified annulus. 10. No pulmonary hypertension, estimated pulmonary arterial systolic pressure is 20 mmHg. 11. There is trace pulmonic regurgitation. Left Ventricle E/e' 21 is elevated. Left ventricular chamber dimension is normal. Left ventricular systolic function is hyperdynamic, estimated at >70%. There is moderate concentric increased left ventricular wall thickness. The left ventricular diastolic function is grade I diastolic dysfunction. Right Ventricle Linear artifact in right ventricle suggestive of catheter(s), pacemaker lead(s), or ICD lead(s). Right ventricular chamber dimension is normal. Right ventricular systolic function is normal. Left Atria Left atrial chamber dimension is normal. Right Atria Linear artifact in the right atrium suggestive of catheter(s), pacemaker lead(s), or ICD lead(s). Right atrial chamber dimension is normal. Aortic Valve The aortic valve is trileaflet. There is no aortic valve stenosis. There is no aortic valve regurgitation. Pulmonic Valve There is trace pulmonic regurgitation. Mitral Valve The mitral valve has moderately calcified annulus. There is no mitral valve stenosis. There is no mitral valve regurgitation. Tricuspid Valve There is no tricuspid valve regurgitation. No pulmonary hypertension, estimated pulmonary arterial systolic pressure is 20 mmHg. Pericardium/Pleural There is no pericardial effusion. Inferior Vena Cava Normal inferior vena cava with >50% collapse upon inspiration consistent with normal right atrial pressure, 5 mmHg. Aorta The aortic root size at the sinus of Valsalva is normal. Left Ventricular Outflow Tract Name Value Normal LVOT 2D LVOT Diameter 2.0 cm LVOT Doppler LVOT Peak Gradient 5 mmHg LVOT Mean Gradient 3 mmHg LVOT VTI 24 cm
== END 2023-06-14 08:57 | disposition home or self-care (01) ==
LOC: ANHCARD 08:58
PROVIDERS: PCP Family Medicine; Visit Provider Physician Assistant
DX: G45.9 Transient cerebral ischemic attack, unspecified (principal); Z79.899 Other long term (current) drug therapy
CPT/HCPCS: 93306

== ENCOUNTER → 2023-07-02 12:09 | Outpatient (CLI) | payer MEDICARE, BC, SELFPAY ==
--- NOTE | ~2023-07-02 | MM_ITS ---
EXAMINATION: MM screening yvonne BI w stacy HISTORY: Screening mammogram, family history of breast cancer in her daughter. TECHNIQUE: Craniocaudal and mediolateral oblique 3-D tomosynthesis images were obtained and synthetic 2-D images were generated. CAD analysis was submitted and interpreted. COMPARISON: 02/06/2022, 12/17/2020, 04/13/2019 BREAST PARENCHYMAL COMPOSITION: There are scattered areas of fibroglandular density. FINDINGS: No suspicious mass, calcification, or architectural distortion are identified in either lissette ast to suggest malignancy. There has been no suspicious interval change. IMPRESSION: 1. No mammographic evidence of malignancy. 2. Recommend routine screening mammography while the patient remains in good health. BI-RADS Category 1: Negative Reviewed, dictated and finalized at location A. IMPRESSION: 1. No mammographic evidence of malignancy. 2. Recommend routine screening mammography while the patient remains in good he alth. BI-RADS Category 1: Negative
== END ==
PROVIDERS: PCP Obstetrics & Gynecology Gynecology; Visit Provider Obstetrics & Gynecology Gynecology
DX: Z12.31 Encounter for screening mammogram for malignant neoplasm of breast (principal)
CPT/HCPCS: 77063; 77067

== ENCOUNTER 2023-07-27 08:28 | Outpatient (CLI) | payer MEDICARE, SELFPAY ==
[2023-07-27 09:29] LABS: Alanine Aminotransferase 25 U/L (6-35); Albumin Level 4.3 g/dL (3.5-5.1); Alkaline Phosphatase 59 U/L (38-126); Anion Gap 4 mmol/L (8-16); Aspartate Amino Transferase 25 U/L (14-36); Bilirubin,Total 0.5 mg/dL (0.2-1.3); Blood Urea Nitrogen 25 mg/dL (7-17); Calcium 9.6 mg/dL (8.4-10.2); Carbon Dioxide 31 mmol/L (22-30); Chloride 106 mmol/L (98-107); Cholesterol 145 mg/dL (0-200); Estimated Glomerular Filt Rate 47; Glucose 129 mg/dL (65-110); HDL Direct 42 mg/dL; Potassium 4.3 mmol/L (3.4-5.0); Sodium 141 mmol/L (137-145); Triglycerides 162 mg/dL (<150)
[2023-07-27 09:57] LABS: LDL Cholesterol Direct 72 mg/dL
== END 2023-07-27 08:29 | disposition home or self-care (01) ==
PROVIDERS: PCP Family Medicine; Visit Provider Family Medicine
DX: E78.49 Other hyperlipidemia (principal); Z79.899 Other long term (current) drug therapy
CPT/HCPCS: 36415; 80053; 80061; 82607

== ENCOUNTER 2023-09-07 10:27 | Emergency (ER) | payer MEDICARE, SELFPAY ==
[2023-09-07] VITALS (36 sets, daily range): BP systolic 118–154; BP diastolic 59–81; PULSE 70–78; RESP 17–22; TEMP 36.8; O2SAT 94–100
--- NOTE | ~2023-09-07 | CT_ITS ---
EXAMINATION: CT brain wo con DATE: 09/07/2023 12:04 INDICATION: Dizziness. TECHNIQUE: Computed tomography (CT) of the head was performed without intravenous contrast. The mA wa s adjusted according to patient size. Iterative reconstruction technique was employed. The dose-lengt h product was 529.67 mGy-cm. COMPARISON: Head CT 03/28/23 FINDINGS: There are scattered areas of low attenuation in the cerebral white matter. There is no intr acranial hemorrhage, acute infarction, or abnormal intracranial mass lesion. The ventricles are magda l in size. There is mild mucosal thickening in the ethmoid sinuses. The mastoid air cells are normal. 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 IMPRESSION: 1. Stable extensive nonspecific cerebral white matter disease, which likely represents chronic small vessel ischemic disease. Reviewed, dictated and finalized at location A. IMPRESSION: 1. Stable extensive nonspecific cerebral white matter disease, which likely rep resents chronic small vessel ischemic disease.
--- NOTE | ~2023-09-07 | XR_ITS ---
EXAMINATION: XR chest 2V DATE: 09/07/2023 12:13 INDICATION: Weakness. TECHNIQUE: Frontal and lateral views of the chest were obtained. COMPARISON: Chest 2 views 03/28/2023 FINDINGS: There is mild scarring at the lung apices. No pleural effusion or pneumothorax. The heart s ize is normal. Calcified left hilar lymph nodes are consistent with old granulomatous disease. There is a left chest wall pacer with leads in the right atrium and right ventricle. IMPRESSION: 1. Stable mild scarring at the lung apices. Reviewed, dictated and finalized at location A.
--- NOTE | 2023-09-07 11:27 | ECG_ITS ---
Measurements Intervals [place] Rate: 71 P: 125 MS: 199 QRS: 3 QRSD: 90 T: 59 QT: 350 QTc: 382 Interpretive Statements ELECTRONIC ATRIAL PACEMAKER NONSPECIFIC T-WAVE ABNORMALITY Electronically Signed On 09-08-2023 12:54:13 CDT by Zaheer Justin M.D.
--- NOTE | 2023-09-07 11:34 | ED.GENADULT ---
HPI - General Adult General Chief complaint: Unspecified Stated complaint: tremors Time Seen by Provider: 09/07/23 11:27 Source: patient Mode of arrival: wheelchair Limitations: no limitations History of Present Illness HPI narrative: This is a 87 year old female that presents to the ER for shakiness. Reports earlier in the week she was experiencing vomiting and diarrhea. Reports that resolved and she has now felt shaky the last couple of days. Reports intermittent room spinning dizziness. Denies fever, chest pain, shortness of breath, abdominal pain, or dysuria. Related Data Home Medications Medication Instructions Recorded Confirmed felodipine 5 mg tablet,extended 5 mg PO DAILY 12/17/19 08/30/23 release 24 hr losartan 50 mg tablet 50 mg PO DAILY 12/17/19 08/30/23 potassium 99 mg tablet 99 mg PO DAILY 12/17/19 08/30/23 acetaminophen 650 mg 650 mg PO Q6H PRN Fever Or Pain 02/19/22 08/30/23 tablet,extended release (Tylenol Arthritis Pain) omega 6-fje-bbp-fish oil 300 1 cap PO DAILY 02/19/22 08/30/23 mg-1,000 mg capsule (Fish Oil) fluticasone propionate 50 2 spray intranasal BID PRN Allergy 03/28/23 08/30/23 mcg/actuation nasal Symptoms spray,suspension (Flonase Allergy Relief) calcium carbonate 600 mg calcium 600 mg PO DAILY 04/01/23 08/30/23 (1,500 mg) tablet cholecalciferol (vitamin D3) 50 50 mcg PO DAILY 05/10/23 08/30/23 mcg (2,000 unit) capsule vitamin B complex (B 1 tablet PO DAILY 05/10/23 08/30/23 Complex-Vitamin B12 tablet) cyanocobalamin (vitamin B-12) 2,500 mcg PO DAILY 05/22/23 08/30/23 1,000 mcg tablet (Vitamin B-12) aspirin 81 mg tablet,delayed 81 mg PO .qod 07/11/23 08/30/23 release (Adult Low Dose Aspirin) Allergies Allergy/AdvReac Type Severity Reaction Status Date / Time cefuroxime Allergy Severe Diarrhea, Verified 08/30/23 16:37 vomiting codeine Allergy Severe Muscle Pain Verified 08/30/23 16:37 Sulfa (Sulfonamide Allergy Intermediate upset Verified 08/30/23 16:37 Antibiotics) stomach, problem breathing amitriptyline Allergy Mild Muscle Verified 08/30/23 16:37 Spasms amlodipine Allergy Mild Nausea Verified 08/30/23 16:37 cilostazol Allergy Mild Palpitation Verified 08/30/23 16:37 s divalproex sodium Allergy Mild Muscle Pain Verified 08/30/23 16:37 hydrocodone Allergy Mild Muscle Pain Verified 08/30/23 16:37 celecoxib Allergy Shakiness Verified 08/30/23 16:37 Review of Systems Review of Systems: CONSTITUTIONAL: Denies fever ENT: Denies congestion, sore throat CARDIOVASCULAR: Denies chest pain, or edema. RESPIRATORY: Denies cough or dyspnea. GASTROINTESTINAL: Reports nausea, vomiting and diarrhea. Denies abdominal pain GENITOURINARY: Denies dysuria or hematuria. All systems reviewed & are unremarkable except as noted in HPI and below PMFSH Past Medical History Medical History Abnormal white blood cell count ANGELIA (acute kidney injury) Alteration in mobility due to trauma Apical lung scarring Back contusion Bradycardia Coronary artery disease involving [place] coronary artery of [place] heart Degenerative arthritis of knee, bilateral Essential (primary) hypertension Fall (on)(from) incline, initial encounter Fatigue Heart disease History of arthritis History of peripheral vascular disease Hyperlipidemia Nausea & vomiting MATHEW (obstructive sleep apnea) Surgical History Surgical History H/O cataract extraction H/O colonoscopy with polypectomy H/O heart artery stent History of arthroscopy of knee 01/01/2019 09/07/2015 History of cholecystectomy 11/25/1984 History of intravascular stent placement History of tonsillectomy Pacemaker Family History Family History Mother Carcinoma of colon Father Malignant neoplasm of prostate Other Diabetes georgie
--- NOTE | 2023-09-07 12:12 | PC.NURSE ---
pt off floor to imaging at 1154 and back @1212
[2023-09-07 12:32] LABS: Basophils Percent Auto 0.1 % (0.2-1.2); Eosinophils Percent Auto 0.5 % (0-4.4); Hematocrit 40.9 % (37.0-47.0); Hemoglobin 13.5 g/dL (12.0-15.0); Immature Granulocyte Absolute 0.02 K/mm3 (0.00-0.031); Immature Granulocyte Percent A 0.2 % (0-0.5); Lymphocytes Absolute Auto 2.55 K/mm3 (0.9-3.2); Lymphocytes Percent Auto 29.9 % (18.3-44.2); Mean Corpuscular Hemoglobin 31.5 pg (26-34); Mean Corpuscular Volume 95.3 fl (80-100); Mean Platelet Volume 9.5 fl (7.4-10.4); Monocytes Absolute Auto 0.5 K/mm3 (0.1-0.6); Monocytes Percent Auto 5.4 % (2.6-8.5); Neutrophils Absolute Auto 5.4 K/mm3 (1.3-6.7); Neutrophils Percent Auto 63.9 % (45.5-73.1); Platelet Count Result 175 k/mm3 (150-375); Red Blood Count 4.29 M/mm3 (4.2-5.4); Red Cell Distribution Width 13.2 % (11.5-14.5); White Blood Count 8.5 K/mm3 (4.5-10.0)
[2023-09-07 12:42] LABS: Magnesium 1.5 mg/dL (1.6-2.3)
[2023-09-07 12:43] LABS: Alanine Aminotransferase 22 U/L (6-35); Alkaline Phosphatase 52 U/L (38-126); Anion Gap 5 mmol/L (8-16); Aspartate Amino Transferase 25 U/L (14-36); Bilirubin,Total 0.5 mg/dL (0.2-1.3); Blood Urea Nitrogen 24 mg/dL (7-17); Calcium 9.5 mg/dL (8.4-10.2); Carbon Dioxide 29 mmol/L (22-30); Chloride 103 mmol/L (98-107); Estimated CRCL calculation 30 ml/min; Estimated Glomerular Filt Rate 53; Glucose 113 mg/dL (65-110); Potassium 3.8 mmol/L (3.4-5.0); Sodium 137 mmol/L (137-145)
[2023-09-07 13:07] LABS: Influenza A QL RT-PCR Negative (Negative); Influenza B QL RT-PCR Negative (Negative); SARS-CoV-2 RNA PCR Negative (Negative)
[2023-09-07] MEDS: MAGNESIUM CHLORIDE 64 MG TABLET PO (13:09)
[2023-09-07 13:33] LABS: Appearance Urine Cloudy (Clear); Bacteria Urine 4+ /hpf; Bilirubin Urine Negative (Negative); Color Urine Yellow (Yellow); Glucose Urine UA Negative (Negative); Ketones Urine Negative (Negative); Leukocyte Esterase Ur 3+ LEU/UL (Negative); Nitrate Urine Negative (Negative); Non Pathogenic Casts 0-2; Protein Urine Negative (Negative); RBC Urine 0-2 /hpf (0-2); Squamous Epithelial Cell Urine None seen /hpf (Few); Urobilinogen Urine 0.2 mg/dL (<2.0); WBC Urine >100 /hpf
[2023-09-07 13:51] LABS: Add Urine Microscopic? YES
--- NOTE | 2023-09-07 14:41 | PC.NURSE ---
[facility] called per [facility] request. [facility] to page a rep to call our facility.
--- NOTE | 2023-09-07 15:46 | PC.NURSE ---
[facility] called again regarding [facility] wanting to speak with a repJesús Liu, at [facility], to send out another page.
== END 2023-09-07 16:22 | disposition home or self-care (01) ==
PROVIDERS: Emergency Provider Physician Assistant; PCP Family Medicine
DX: N39.0 Urinary tract infection, site not specified (principal); E83.42 Hypomagnesemia; Z20.822 Contact with and (suspected) exposure to COVID-19; I25.10 Atherosclerotic heart disease of native coronary artery without angina pectoris; I10 Essential (primary) hypertension; I73.9 Peripheral vascular disease, unspecified; E78.5 Hyperlipidemia, unspecified; G47.33 Obstructive sleep apnea (adult) (pediatric); M17.0 Bilateral primary osteoarthritis of knee; Z95.5 Presence of coronary angioplasty implant and graft; Z95.0 Presence of cardiac pacemaker; Z98.49 Cataract extraction status, unspecified eye; Z87.891 Personal history of nicotine dependence; R90.82 White matter disease, unspecified; R94.31 Abnormal electrocardiogram [ECG] [EKG]
CPT/HCPCS: 36415; 70450; 71046; 80053; 81001; 83735; 85025; 87077; 87086; 87186; 87636; 93005; 99284; A9270

== ENCOUNTER 2023-09-28 13:39 | Emergency (ER) | payer MEDICARE, SELFPAY ==
[2023-09-28] VITALS (20 sets, daily range): BP systolic 114–158; BP diastolic 51–75; PULSE 70–80; RESP 15–21; TEMP 36.3; O2SAT 97–100
--- NOTE | ~2023-09-28 | CT_ITS ---
EXAMINATION: CT brain wo con DATE: 09/28/2023 14:52 INDICATION: Transient ischemic episode with dysarthria TECHNIQUE: Computed tomography (CT) of the head was performed without intravenous contrast. Sagittal and coronal reconstructions were performed. The mA was adjusted according to patient size. Iterative reconstruction technique was employed. The dose-length product was 605.33 mGy-cm. COMPARISON: head CT dated 09/07/2023 FINDINGS: No acute intracranial hemorrhage, acute infarction or abnormal extra axial fluid collection. There is extensive scattered white matter hypoattenuation consistent with chronic small vessel ischemic disea se. Symmetric prominence of the sulci consistent with mild to moderate age-appropriate diffuse cerebr al volume loss. Ventricles are normal and symmetric. No mass/mass effect. Changes of bilateral intrao cular lens replacement. The orbits, paranasal sinuses and mastoid air cells are normal. Intracranial calcified cerebral atherosclerosis is noted. Osteoma along the peripheral anterior left frontal skul l. IMPRESSION: 1. No acute intracranial process. 2. Stable appearance of age-related changes including mild to moderate diffuse volume loss and extens christine scattered white matter hypoattenuation consistent with chronic small vessel ischemic disease. Reviewed, dictated and finalized at location A. IMPRESSION: 1. No acute intracranial process. 2. Stable appearance of age-related changes including mild to moderate diffuse volume loss and extensive scattered white matter hypoattenuation consistent wit h chronic small vessel ischemic disease.
--- NOTE | ~2023-09-28 | XR_ITS ---
EXAMINATION: XR chest 1V portable DATE: 09/28/2023 14:54 INDICATION: Altered mental status TECHNIQUE: frontal view of the chest was obtained. COMPARISON: Chest radiograph dated 09/07/2023 FINDINGS: Mild biapical pleural-parenchymal scarring. No other airspace opacities, pulmonary edema, pleural eff usion or pneumothorax. Heart size is normal. Dual lead pacemaker seen with leads projecting over the expected locations of the right atrium and right ventricular outflow tract. Multiple splenic calcific ations and calcified left hilar lymph nodes consistent with old granulomatous disease. Moderate degen erative skeletal changes in the spine and bilateral shoulders. IMPRESSION: 1. Chronic mild biapical pleural-parenchymal scarring. No acute cardiopulmonary disease. Reviewed, dictated and finalized at location A.
--- NOTE | 2023-09-28 14:39 | ECG_ITS ---
Measurements Intervals [place] Rate: 70 P: 148 AR: 201 QRS: 7 QRSD: 90 T: 89 QT: 369 QTc: 399 Interpretive Statements ELECTRONIC ATRIAL PACEMAKER DELAYED PRECORDIAL R/S TRANSITION LOW QRS VOLTAGE IN LIMB LEADS BORDERLINE ST-T WAVE ABNORMALITY- ANTEROLAT/HIGH LAT LEADS BASELINE ARTIFACT- I, III, AVR, AVL BORDERLINE ECG COMPARED TO ECG 09/07/2023 11:52:25 NO SIGNIFICANT CHANGES Electronically Signed On 09-28-2023 16:52:03 CDT by Aditya South D.O.
--- NOTE | 2023-09-28 14:41 | ED.NEUROSD ---
HPI - Neuro Symptoms/Deficit General Chief Complaint: Neuro Symptoms/Deficit Stated Complaint: slurred speech/aphasia Time Seen by Provider: 09/28/23 13:52 History of Present Illness HPI Narrative: 87-year-old female with a history of hyperlipidemia, hypertension, TIAs presenting with an episode of slurred speech. Patient's daughter is at bedside and helps with the history. States that she went over to check on her mom this morning and she was not making any sense. Seemed like she was struggling to put sentences together. No other associated symptoms. No numbness or weakness, facial droop, vision changes, gait changes. States this episode lasted about 25 minutes before resolving. Patient states that this is happened in the past. States that she often gets UTIs and she was recently treated for 1. States that she did have dysuria earlier today. No fevers or chills, chest pain, shortness of breath, lightheadedness, abdominal pain, nausea or vomiting, diarrhea, leg swelling. Related Data Home Medications Medication Instructions Recorded Confirmed felodipine 5 mg tablet,extended 5 mg PO DAILY 12/17/19 08/30/23 release 24 hr losartan 50 mg tablet 50 mg PO DAILY 12/17/19 08/30/23 potassium 99 mg tablet 99 mg PO DAILY 12/17/19 08/30/23 acetaminophen 650 mg 650 mg PO Q6H PRN Fever Or Pain 02/19/22 08/30/23 tablet,extended release (Tylenol Arthritis Pain) omega 2-pmy-uvk-fish oil 300 1 cap PO DAILY 02/19/22 08/30/23 mg-1,000 mg capsule (Fish Oil) fluticasone propionate 50 2 spray intranasal BID PRN Allergy 03/28/23 08/30/23 mcg/actuation nasal Symptoms spray,suspension (Flonase Allergy Relief) calcium carbonate 600 mg calcium 600 mg PO DAILY 04/01/23 08/30/23 (1,500 mg) tablet cholecalciferol (vitamin D3) 50 50 mcg PO DAILY 05/10/23 08/30/23 mcg (2,000 unit) capsule vitamin B complex (B 1 tablet PO DAILY 05/10/23 08/30/23 Complex-Vitamin B12 tablet) cyanocobalamin (vitamin B-12) 2,500 mcg PO DAILY 05/22/23 08/30/23 1,000 mcg tablet (Vitamin B-12) aspirin 81 mg tablet,delayed 81 mg PO .qod 07/11/23 08/30/23 release (Adult Low Dose Aspirin) Allergies Allergy/AdvReac Type Severity Reaction Status Date / Time cefuroxime Allergy Severe Diarrhea, Verified 09/28/23 13:57 vomiting codeine Allergy Severe Muscle Pain Verified 09/28/23 13:57 Sulfa (Sulfonamide Allergy Intermediate upset Verified 09/28/23 13:57 Antibiotics) stomach, problem breathing amitriptyline Allergy Mild Muscle Verified 09/28/23 13:57 Spasms amlodipine Allergy Mild Nausea Verified 09/28/23 13:57 cilostazol Allergy Mild Palpitation Verified 09/28/23 13:57 s divalproex sodium Allergy Mild Muscle Pain Verified 09/28/23 13:57 hydrocodone Allergy Mild Muscle Pain Verified 09/28/23 13:57 celecoxib Allergy Shakiness Verified 09/28/23 13:57 Review of Systems Review of Systems: All systems reviewed & are unremarkable except as noted in HPI and below PMFSH Past Medical History Medical History Abnormal white blood cell count ANGELIA (acute kidney injury) Alteration in mobility due to trauma Apical lung scarring Back contusion Bradycardia Coronary artery disease involving [place] coronary artery of [place] heart Degenerative arthritis of knee, bilateral Essential (primary) hypertension Fall (on)(from) incline, initial encounter Fatigue Heart disease History of arthritis History of peripheral vascular disease Hyperlipidemia Nausea & vomiting MATHEW (obstructive sleep apnea) Surgical History Surgical History H/O cataract extraction H/O colonoscopy with polypectomy H/O heart artery stent History of arthroscopy of knee 01/01/2019 09/07/2015 History of cholecystectomy 11/25/1984 History of intravascular stent placement History of tonsillectomy Pacemaker Family History Family History (Revi
[2023-09-28 15:22] LABS: Basophils Percent Auto 0.2 % (0.2-1.2); Eosinophils Absolute Auto 0.1 K/mm3 (0-0.3); Eosinophils Percent Auto 0.6 % (0-4.4); Hematocrit 38.3 % (37.0-47.0); Hemoglobin 12.6 g/dL (12.0-15.0); Immature Granulocyte Absolute 0.03 K/mm3 (0.00-0.031); Immature Granulocyte Percent A 0.3 % (0-0.5); Lymphocytes Absolute Auto 3.04 K/mm3 (0.9-3.2); Lymphocytes Percent Auto 35.4 % (18.3-44.2); Mean Corpuscular HGB Conc 32.9 g/dl (32-36); Mean Corpuscular Hemoglobin 31.5 pg (26-34); Mean Corpuscular Volume 95.8 fl (80-100); Mean Platelet Volume 9.1 fl (7.4-10.4); Monocytes Absolute Auto 0.6 K/mm3 (0.1-0.6); Neutrophils Absolute Auto 4.9 K/mm3 (1.3-6.7); Neutrophils Percent Auto 56.5 % (45.5-73.1); Platelet Count Result 184 k/mm3 (150-375); Red Cell Distribution Width 13.1 % (11.5-14.5); White Blood Count 8.6 K/mm3 (4.5-10.0)
[2023-09-28 15:36] LABS: Partial Thromboplastin Time 27.4 SECONDS (22.3-36.8); Prothrombin Time 13.9 Seconds (11.1-14.7)
[2023-09-28 15:40] LABS: Alanine Aminotransferase 18 U/L (6-35); Albumin Level 3.9 g/dL (3.5-5.1); Alkaline Phosphatase 51 U/L (38-126); Anion Gap 4 mmol/L (8-16); Aspartate Amino Transferase 20 U/L (14-36); Bilirubin,Total 0.5 mg/dL (0.2-1.3); Blood Urea Nitrogen 24 mg/dL (7-17); Calcium 9.5 mg/dL (8.4-10.2); Carbon Dioxide 29 mmol/L (22-30); Chloride 103 mmol/L (98-107); Estimated Glomerular Filt Rate 53; Glucose 102 mg/dL (65-110); Sodium 136 mmol/L (137-145)
[2023-09-28 15:42] LABS: Appearance Urine Turbid (Clear); Bacteria Urine 4+ /hpf; Bilirubin Urine Negative (Negative); Blood Urine 2+ (Negative); Color Urine Yellow (Yellow); Glucose Urine UA Negative (Negative); Ketones Urine Trace mg/dL (Negative); Leukocyte Esterase Ur 3+ LEU/UL (Negative); Need Manual Microscopic Reviewed; Nitrate Urine Negative (Negative); Protein Urine 1+ mg/dL (Negative); Specific Grav Ur 1.019 (1.001-1.035); Squamous Epithelial Cell Urine Many /hpf (Few); Urobilinogen Urine 0.2 mg/dL (<2.0); WBC Urine >100 /hpf; pH Urine 5.5 (5.0-9.0)
[2023-09-28 15:43] LABS: Add Urine Microscopic? YES
[2023-09-28] MEDS: SODIUM CHLORIDE 0.9% IV 1,000 ML 999 ML IV CONT (15:59)
[2023-09-28] MEDS: cefTRIAXone 2 GM/NS 100 ML 2 GM/100 ML BAG IVPB (15:59)
== END 2023-09-28 18:24 | disposition home or self-care (01) ==
PROVIDERS: Emergency Provider Emergency Medicine; PCP Family Medicine
DX: G45.9 Transient cerebral ischemic attack, unspecified (principal); N39.0 Urinary tract infection, site not specified; I10 Essential (primary) hypertension; I25.10 Atherosclerotic heart disease of native coronary artery without angina pectoris; I73.9 Peripheral vascular disease, unspecified; E78.5 Hyperlipidemia, unspecified; G47.33 Obstructive sleep apnea (adult) (pediatric); M17.0 Bilateral primary osteoarthritis of knee; Z98.49 Cataract extraction status, unspecified eye; Z95.0 Presence of cardiac pacemaker; Z95.5 Presence of coronary angioplasty implant and graft; Z86.73 Personal history of transient ischemic attack (TIA), and cerebral infarction without residual deficits; Z87.891 Personal history of nicotine dependence; Z90.49 Acquired absence of other specified parts of digestive tract; Z79.82 Long term (current) use of aspirin; R94.31 Abnormal electrocardiogram [ECG] [EKG]
CPT/HCPCS: 36415; 70450; 71045; 80053; 81001; 85025; 85610; 85730; 87077; 87086; 87186; 93005; 96361; 96365; 99284; J0696; J7030

== ENCOUNTER 2023-10-02 14:14 | Emergency (ER) | payer MEDICARE, SELFPAY ==
--- NOTE | ~2023-10-02 | CT_ITS ---
EXAMINATION: CT brain wo con INDICATION: Head injury COMPARISON: 09/28/2023 TECHNIQUE: Standard unenhanced head CT. The dose-length product (DLP) was 605.33 mGy-cm. The mA was a djusted according to patient size. Iterative reconstruction technique was employed. FINDINGS: No acute intraparenchymal hemorrhage. No evidence of mass lesion. No evidence of acute infa rction. There is mild periventricular and subcortical hypodensity probably related to small vessel is chemic disease. There is mild prominence of the sulci and ventricles related to cerebral atrophy. Int racranial calcified cerebral atherosclerosis is noted. No extra-axial collections. No mass effect or midline shift. There is a posterior parietal scalp hematoma. The visualized sinuses and mastoid air c ells are well aerated. IMPRESSION: 1. Posterior scalp hematoma without acute intracranial abnormality. 2. Age related findings. Reviewed, dictated and finalized at location B. [facility]
[2023-10-02 14:42] VITALS: BP 112/98; PULSE 70; RESP 20; TEMP 36.3; O2SAT 99
[2023-10-02 15:54] VITALS: BP 156/90; PULSE 73; RESP 17; O2SAT 96
[2023-10-02 16:12] VITALS: PULSE 74; RESP 15; O2SAT 95
[2023-10-02 16:15] VITALS: PULSE 74; RESP 15; O2SAT 95
--- NOTE | 2023-10-02 16:29 | ED.HEATRA ---
HPI - Head Injury General Chief complaint: Head Injury Stated complaint: GLF, struck head, on blood thinners Time Seen by Provider: 10/02/23 15:05 History of Present Illness HPI Narrative: Patient is an 87-year-old female who presents ER after striking her head. Patient was stepping up on the curb of a local eating establishment when she lost her footing and fell backwards striking her head. She did not lose consciousness. She is on Plavix and aspirin. She was momentarily confused according to her friend but also reports that this occurs when she is anxious. Patient has no change in vision or hearing. No pain in the neck. No numbness or tingling or weakness to an arm or leg. No headache at this time. Related Data Home Medications Medication Instructions Recorded Confirmed felodipine 5 mg tablet,extended 5 mg PO DAILY 12/17/19 08/30/23 release 24 hr losartan 50 mg tablet 50 mg PO DAILY 12/17/19 08/30/23 potassium 99 mg tablet 99 mg PO DAILY 12/17/19 08/30/23 acetaminophen 650 mg 650 mg PO Q6H PRN Fever Or Pain 02/19/22 08/30/23 tablet,extended release (Tylenol Arthritis Pain) omega 8-ygy-fws-fish oil 300 1 cap PO DAILY 02/19/22 08/30/23 mg-1,000 mg capsule (Fish Oil) fluticasone propionate 50 2 spray intranasal BID PRN Allergy 03/28/23 08/30/23 mcg/actuation nasal Symptoms spray,suspension (Flonase Allergy Relief) calcium carbonate 600 mg calcium 600 mg PO DAILY 04/01/23 08/30/23 (1,500 mg) tablet cholecalciferol (vitamin D3) 50 50 mcg PO DAILY 05/10/23 08/30/23 mcg (2,000 unit) capsule vitamin B complex (B 1 tablet PO DAILY 05/10/23 08/30/23 Complex-Vitamin B12 tablet) cyanocobalamin (vitamin B-12) 2,500 mcg PO DAILY 05/22/23 08/30/23 1,000 mcg tablet (Vitamin B-12) aspirin 81 mg tablet,delayed 81 mg PO .qod 07/11/23 08/30/23 release (Adult Low Dose Aspirin) Allergies Allergy/AdvReac Type Severity Reaction Status Date / Time cefuroxime Allergy Severe Diarrhea, Verified 10/02/23 14:47 vomiting codeine Allergy Severe Muscle Pain Verified 10/02/23 14:47 Sulfa (Sulfonamide Allergy Intermediate upset Verified 10/02/23 14:47 Antibiotics) stomach, problem breathing amitriptyline Allergy Mild Muscle Verified 10/02/23 14:47 Spasms amlodipine Allergy Mild Nausea Verified 10/02/23 14:47 cilostazol Allergy Mild Palpitation Verified 10/02/23 14:47 s divalproex sodium Allergy Mild Muscle Pain Verified 10/02/23 14:47 hydrocodone Allergy Mild Muscle Pain Verified 10/02/23 14:47 celecoxib Allergy Shakiness Verified 10/02/23 14:47 Review of Systems Constitutional: Constitutional: Reports no additional constitutional complaints Eyes: Eyes: Reports no additional eye complaints Neurologic: Reports confusion, Denies syncope, Denies headache(s), Denies focal weakness and Denies numbness Psychiatric: Psychiatric: Reports anxiety PMFSH Past Medical History Medical History Abnormal white blood cell count ANGELIA (acute kidney injury) Alteration in mobility due to trauma Apical lung scarring Back contusion Bradycardia Coronary artery disease involving [place] coronary artery of [place] heart Degenerative arthritis of knee, bilateral Essential (primary) hypertension Fall (on)(from) incline, initial encounter Fatigue Heart disease History of arthritis History of peripheral vascular disease Hyperlipidemia Nausea & vomiting MATHEW (obstructive sleep apnea) Surgical History Surgical History H/O cataract extraction H/O colonoscopy with polypectomy H/O heart artery stent History of arthroscopy of knee 01/01/2019 09/07/2015 History of cholecystectomy 11/25/1984 History of intravascular stent placement History of tonsillectomy Pacemaker Family History Family History Mother Carcinoma of colon Fa
[2023-10-02 16:30] VITALS: BP 152/80; PULSE 71; RESP 20; O2SAT 98
[2023-10-02 17:10] VITALS: BP 116/70; PULSE 80; RESP 16; TEMP 36.7; O2SAT 98
== END 2023-10-02 17:11 | disposition home or self-care (01) ==
PROVIDERS: Emergency Provider Emergency Medicine; PCP Family Medicine
DX: S06.0X0A Concussion without loss of consciousness, initial encounter (principal); I25.10 Atherosclerotic heart disease of native coronary artery without angina pectoris; I73.9 Peripheral vascular disease, unspecified; E78.5 Hyperlipidemia, unspecified; M19.90 Unspecified osteoarthritis, unspecified site; G47.33 Obstructive sleep apnea (adult) (pediatric); Z98.49 Cataract extraction status, unspecified eye; Z95.5 Presence of coronary angioplasty implant and graft; Z95.0 Presence of cardiac pacemaker; Z87.891 Personal history of nicotine dependence; Z90.49 Acquired absence of other specified parts of digestive tract; Z79.82 Long term (current) use of aspirin; Z79.02 Long term (current) use of antithrombotics/antiplatelets; W10.1XXA Fall (on)(from) sidewalk curb, initial encounter
CPT/HCPCS: 70450; 99284

== ENCOUNTER 2023-10-05 11:42 | Emergency (ER) | payer MEDICARE, SELFPAY ==
--- NOTE | ~2023-10-05 | CT_ITS ---
EXAMINATION: CTA brain carotid DATE: 10/05/2023 12:37 INDICATION: Left-sided neurological deficits. TECHNIQUE: Computed tomographic angiography (CTA) of the head was performed without and with 100 mL O mnipaque-350 intravenous contrast. CTA of the neck was performed with intravenous contrast. Automated exposure control and iterative reconstruction technique were employed. The dose-length product was 1 751.25 mGy-cm. Maximum intensity projection and volume rendered 3D-reconstructions were created by callie sosa technologist on a separate workstation. COMPARISON: Head CT 10/02/2023 FINDINGS: HEAD CTA: There are scattered areas of low attenuation in the cerebral white matter. There is acute i ntraparenchymal hemorrhage in right frontoparietal region. There is acute subarachnoid hemorrhage in right frontoparietal region. There is no abnormal mass lesion. The ventricles are normal in size. The re are likely changes of ocular lens replacement surgeries. There is mild mucosal thickening in the m axillary sinuses. The mastoid air cells are normal. The vertebral arteries are codominant. There is n o significant stenosis of basilar artery or the posterior cerebral arteries. There is no significant stenosis of the intracranial internal carotid arteries or anterior or middle cerebral arteries. Anter ior communicating artery is normal. The posterior communicating arteries are not identified. There is no aneurysm. NECK CTA: There is mild scarring at the lung apices. There are no pathologically enlarged lymph nodes . There are nodules in the thyroid measuring up to 4 mm, likely not clinically significant. There is moderate stenosis of the proximal vertebral arteries. There is plaque in the proximal internal caroti d arteries. There is 0% stenosis of the proximal right internal carotid artery relative to normal dis nessa artery lumen diameter (NASCET criteria). There is 0% stenosis of the proximal left internal carot id artery relative to normal distal artery lumen diameter. There is severe cervical spondylosis. IMPRESSION: 1. Acute intraparenchymal hemorrhage in right frontal parietal region. Acute subarachnoid hemorrhage in right frontal parietal region. 2. Extensive nonspecific cerebral white matter disease, which likely represents chronic small vessel ischemic disease. 3. No aneurysm or significant intracranial arterial stenosis. 4. 0% stenosis of the proximal internal carotid arteries relative to normal distal artery lumen diame ters (NASCET criteria). Reviewed, dictated and finalized at location A. LING ATTENDANT IMPRESSION: 1. Acute intraparenchymal hemorrhage in right frontal parietal region. Acute slaughter barachnoid hemorrhage in right frontal parietal region. 2. Extensive nonspecific cerebral white matter disease, which likely represents chronic small vessel ischemic disease. 3. No aneurysm or significant intracranial arterial stenosis. 4. 0% stenosis of the proximal internal carotid arteries relative to normal dis nessa artery lumen diameters (NASCET criteria).
--- NOTE | ~2023-10-05 | XR_ITS ---
EXAMINATION: XR chest 1V portable DATE: 10/05/2023 12:49 INDICATION: Fall. TECHNIQUE: A single frontal view of the chest was obtained. COMPARISON: Chest single view 09/28/2023 FINDINGS: There is mild atelectasis in the lower lung zones. Calcified left lung nodules and calcifie d left hilar lymph nodes are consistent with old granulomatous disease. No pleural effusion or pneumo thorax. The heart size is normal. There is a left chest wall pacer with leads in the right atrium and right ventricle. IMPRESSION: 1. Mild atelectasis in the lower lung zones. Reviewed, dictated and finalized at location A. ETCHER
--- NOTE | ~2023-10-05 | CT_ITS ---
CT scan of the cervical spine Technique: Multiple contiguous axial [address] images of the cervical spine were obtained and rec onstructed in 2D sagittal and coronal planes on the acquisition scanner. Imaging was performed follow ing intravenous administration of 100 cc of Omnipaque 350 contrast material. Dose reduction technique was used on this scan by utilizing automated exposure control, adjustment of the mA and/or kV accord ing to patient size. The dose-length product (DLP) was 1751.25 mGy-cm. Clinical History: Pain Findings: No acute fracture identified. There is minimal grade 1 anterolisthesis of C2 over C3. There is fusion of the right C3-C4 facet joint. There is mild to moderate degenerative disc narrowing thro ughout the cervical spine, worst at C5-C6 and C6-C7. There is prominent facet hypertrophy at the right side at C2-C3, possible minimal right neural forami nal narrowing. There is right neural foraminal narrowing at C3-C4, with right-sided facet joint hyper trophy. There is right neural foraminal narrowing at C4-C5, with prominent right sided facet joint ar thropathy. There is bilateral neural foraminal narrowing, right worse than left, at C5-C6, with bilat eral facet arthropathy and mild disc osteophyte complex. There is bilateral neural foraminal narrowin g at C6-C7, with mild disc osteophyte complex and mild facet arthropathy. No prevertebral soft tissue swelling. There is a 2 cm irregular semisolid nodule at the right lung apex, increased in size since 12/06/2017. Impression: No acute fracture. Minimal grade 1 anterolisthesis of C2 over C3. Moderate degenerative spondylosis, as above. 2 cm irregular, semisolid right apical lung nodule, increase in size since 12/06/2017. 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 Consider tissue sampling, PET s can, and/or close interval follow-. Reviewed, dictated and finalized at location . ARCH MANUFACTURING OPERATOR Impression: No acute fracture. Minimal grade 1 anterolisthesis of C2 over C3. Moderate degenerative spondylosis, as above. 2 cm irregular, semisolid right apical lung nodule, increase in size since 12/06. Findings suggests indolent neoplasm such as possibly bronchoalveolar salvatore l carcinoma. Consider tissue sampling, PET scan, and/or close interval follow-.
[2023-10-05 11:40] VITALS: BP 159/80; PULSE 72; RESP 20; TEMP 36.4; O2SAT 98
--- NOTE | 2023-10-05 11:53 | ECG_ITS ---
Measurements Intervals [place] Rate: 70 P: 63 SC: 201 QRS: 10 QRSD: 97 T: 57 QT: 399 QTc: 432 Interpretive Statements ELECTRONIC ATRIAL PACEMAKER DELAYED PRECORDIAL R/S TRANSITION BORDERLINE ST-T WAVE ABNORMALITY- HIGH LATERAL LEADS BASELINE ARTIFACT- I, II, III, AVR, AVL, AVF, V1-V6 BORDERLINE ECG COMPARED TO ECG 09/28/2023 15:11:49 NO SIGNIFICANT CHANGES Electronically Signed On 10-07-2023 11:36:00 ACCESS RN by Aditya South D.O.
[2023-10-05 12:09] LABS: Glucose Point of Care 148 mg/dl (65-105)
[2023-10-05 12:25] LABS: Basophils Percent Auto 0.2 % (0.2-1.2); Eosinophils Percent Auto 0.1 % (0-4.4); Hematocrit 39.5 % (37.0-47.0); Hemoglobin 13.6 g/dL (12.0-15.0); Immature Granulocyte Absolute 0.05 K/mm3 (0.00-0.031); Immature Granulocyte Percent A 0.4 % (0-0.5); Lymphocytes Absolute Auto 1.21 K/mm3 (0.9-3.2); Lymphocytes Percent Auto 10.1 % (18.3-44.2); Mean Corpuscular HGB Conc 34.4 g/dl (32-36); Mean Corpuscular Hemoglobin 31.9 pg (26-34); Mean Corpuscular Volume 92.5 fl (80-100); Monocytes Absolute Auto 0.6 K/mm3 (0.1-0.6); Monocytes Percent Auto 5.1 % (2.6-8.5); Neutrophils Absolute Auto 10.1 K/mm3 (1.3-6.7); Neutrophils Percent Auto 84.1 % (45.5-73.1); Platelet Count Result 180 k/mm3 (150-375); Red Blood Count 4.27 M/mm3 (4.2-5.4); Red Cell Distribution Width 12.4 % (11.5-14.5)
[2023-10-05 12:31] LABS: Estimated CRCL calculation 36 ml/min; Estimated Glomerular Filt Rate > 60
[2023-10-05 12:36] LABS: Prothrombin Time 13.8 Seconds (11.1-14.7)
[2023-10-05 12:37] LABS: Alanine Aminotransferase 21 U/L (6-35); Albumin Level 4.4 g/dL (3.5-5.1); Alkaline Phosphatase 56 U/L (38-126); Anion Gap 11 mmol/L (8-16); Aspartate Amino Transferase 27 U/L (14-36); Bilirubin,Total 0.9 mg/dL (0.2-1.3); Blood Urea Nitrogen 23 mg/dL (7-17); Calcium 9.5 mg/dL (8.4-10.2); Carbon Dioxide 25 mmol/L (22-30); Chloride 100 mmol/L (98-107); Estimated CRCL calculation 41 ml/min; Estimated Glomerular Filt Rate > 60; Glucose 149 mg/dL (65-110); Partial Thromboplastin Time 27.9 SECONDS (22.3-36.8); Potassium 3.9 mmol/L (3.4-5.0); Sodium 136 mmol/L (137-145)
[2023-10-05 12:47] VITALS: BP 151/87; PULSE 70; RESP 18; O2SAT 100
[2023-10-05 12:48] LABS: Troponin I < 0.012 ng/mL (0.000-0.034)
--- NOTE | 2023-10-05 12:53 | ED.FALL ---
HPI - Fall General Chief Complaint: Fall Stated Complaint: fall Time Seen by Provider: 10/05/23 11:46 History of Present Illness HPI Narrative: Patient has frequent falls, and did fall sometime early this AM or late last night, was found on the ground this morning, had L facial droop and L arm numbness. Related Data Home Medications Medication Instructions Recorded Confirmed felodipine 5 mg tablet,extended 5 mg PO DAILY 12/17/19 08/30/23 release 24 hr losartan 50 mg tablet 50 mg PO DAILY 12/17/19 08/30/23 potassium 99 mg tablet 99 mg PO DAILY 12/17/19 08/30/23 acetaminophen 650 mg 650 mg PO Q6H PRN Fever Or Pain 02/19/22 08/30/23 tablet,extended release (Tylenol Arthritis Pain) omega 4-dmt-qlk-fish oil 300 1 cap PO DAILY 02/19/22 08/30/23 mg-1,000 mg capsule (Fish Oil) fluticasone propionate 50 2 spray intranasal BID PRN Allergy 03/28/23 08/30/23 mcg/actuation nasal Symptoms spray,suspension (Flonase Allergy Relief) calcium carbonate 600 mg calcium 600 mg PO DAILY 04/01/23 08/30/23 (1,500 mg) tablet cholecalciferol (vitamin D3) 50 50 mcg PO DAILY 05/10/23 08/30/23 mcg (2,000 unit) capsule vitamin B complex (B 1 tablet PO DAILY 05/10/23 08/30/23 Complex-Vitamin B12 tablet) cyanocobalamin (vitamin B-12) 2,500 mcg PO DAILY 05/22/23 08/30/23 1,000 mcg tablet (Vitamin B-12) aspirin 81 mg tablet,delayed 81 mg PO .qod 07/11/23 08/30/23 release (Adult Low Dose Aspirin) Allergies Allergy/AdvReac Type Severity Reaction Status Date / Time cefuroxime Allergy Severe Diarrhea, Verified 10/02/23 14:47 vomiting codeine Allergy Severe Muscle Pain Verified 10/02/23 14:47 Sulfa (Sulfonamide Allergy Intermediate upset Verified 10/02/23 14:47 Antibiotics) stomach, problem breathing amitriptyline Allergy Mild Muscle Verified 10/02/23 14:47 Spasms amlodipine Allergy Mild Nausea Verified 10/02/23 14:47 cilostazol Allergy Mild Palpitation Verified 10/02/23 14:47 s divalproex sodium Allergy Mild Muscle Pain Verified 10/02/23 14:47 hydrocodone Allergy Mild Muscle Pain Verified 10/02/23 14:47 celecoxib Allergy Shakiness Verified 10/02/23 14:47 Review of Systems Review of Systems: CONST: No fever. HEENT: Head trauma C/V: No chest pain RESP: No cough GI: No abdominal pain : No dysuria. M/S: No joint pain. SKIN: No rash. NEURO: Focal numbness/weakness to left face and arm PSYCH: [No depression] [facility] Past Medical History Medical History Abnormal white blood cell count ANGELIA (acute kidney injury) Alteration in mobility due to trauma Apical lung scarring Back contusion Bradycardia Coronary artery disease involving [place] coronary artery of [place] heart Degenerative arthritis of knee, bilateral Essential (primary) hypertension Fall (on)(from) incline, initial encounter Fatigue Heart disease History of arthritis History of peripheral vascular disease Hyperlipidemia Nausea & vomiting MATHEW (obstructive sleep apnea) Surgical History Surgical History H/O cataract extraction H/O colonoscopy with polypectomy H/O heart artery stent History of arthroscopy of knee 01/01/2019 09/07/2015 History of cholecystectomy 11/25/1984 History of intravascular stent placement History of tonsillectomy Pacemaker Family History Family History Mother Carcinoma of colon Father Malignant neoplasm of prostate Other Diabetes mellitus Family history of cardiovascular disease Family history of mental disorder Hypertension Social History Social History Social History: She is and lives home alone. She is a former smoker. She has 5 children. She is retired Code status full code Smoking packs per day: 0.5 Smoking cigarettes per
== END 2023-10-05 13:21 | disposition short-term general hospital (02) ==
PROVIDERS: Emergency Provider Emergency Medicine; PCP Family Medicine
DX: S06.6XAA Traumatic subarachnoid hemorrhage with loss of consciousness status unknown, initial encounter (principal); R29.810 Facial weakness; R20.0 Anesthesia of skin; I25.10 Atherosclerotic heart disease of native coronary artery without angina pectoris; I73.9 Peripheral vascular disease, unspecified; E78.5 Hyperlipidemia, unspecified; G47.33 Obstructive sleep apnea (adult) (pediatric); M17.0 Bilateral primary osteoarthritis of knee; Z98.49 Cataract extraction status, unspecified eye; Z95.5 Presence of coronary angioplasty implant and graft; Z95.0 Presence of cardiac pacemaker; Z87.891 Personal history of nicotine dependence; Z90.49 Acquired absence of other specified parts of digestive tract; Z79.82 Long term (current) use of aspirin; R94.31 Abnormal electrocardiogram [ECG] [EKG]
CPT/HCPCS: 36415; 70496; 70498; 71045; 72125; 80053; 82948; 84484; 85025; 85610; 85730; 86850; 86900; 86901; 86902; 93005; 99291; Q9967

== ENCOUNTER 2023-10-12 13:02 | Emergency (ER) | payer OTHER, MEDICARE, SELFPAY ==
[2023-10-12] VITALS (7 sets, daily range): BP systolic 96–132; BP diastolic 55–62; PULSE 70–72; RESP 15–18; TEMP 36.8; O2SAT 97–100
--- NOTE | ~2023-10-12 | CT_ITS ---
EXAMINATION: CT brain wo con DATE: 10/12/2023 13:12 INDICATION: Facial weakness. TECHNIQUE: Computed tomography (CT) of the head was performed without intravenous contrast. The mA wa s adjusted according to patient size. Iterative reconstruction technique was employed. The dose-lengt h product was 605.33 mGy-cm. COMPARISON: Head CT 10/05/2023 FINDINGS: There are scattered areas of low attenuation in the cerebral white matter. Again seen is an intraparenchymal hematoma in right frontoparietal region with hyperdense subarachnoid hemorrhage in nearby sulci. There is no acute ischemic infarct or abnormal mass lesion. The ventricles are normal i n size. There are likely changes of ocular lens replacement surgeries. There is mild mucosal thickeni ng in the paranasal sinuses. The mastoid air cells are normal. IMPRESSION: 1. Intraparenchymal hematoma in right frontoparietal region, stable from 10/05/2023. 2. Subarachnoid hemorrhage in right frontoparietal region, stable from 10/05/2023. 3. Stable extensive nonspecific cerebral white matter disease, which likely represents chronic small vessel ischemic disease. Reviewed, dictated and finalized at location A. ESSOR GRAIN IMPRESSION: 1. Intraparenchymal hematoma in right frontoparietal region, stable from 2022. 2. Subarachnoid hemorrhage in right frontoparietal region, stable from 10/05/20 23. 3. Stable extensive nonspecific cerebral white matter disease, which likely rep resents chronic small vessel ischemic disease.
--- NOTE | ~2023-10-12 | XR_ITS ---
EXAMINATION: XR chest 1V portable DATE: 10/12/2023 13:55 INDICATION: Facial droop. TECHNIQUE: A single frontal view of the chest was obtained. COMPARISON: Chest single view 10/05/2023, CT abdomen and pelvis 03/28/2023 FINDINGS: Calcified lung nodules and calcified hilar lymph nodes are consistent with old granulomatou s disease. No pleural effusion or pneumothorax. Cardiomegaly is noted. There is a left chest wall pac er with leads in the right atrium and right ventricle. IMPRESSION: 1. Cardiomegaly. Reviewed, dictated and finalized at location A. FILLER IMPRESSION: 1. Cardiomegaly.
--- NOTE | 2023-10-12 13:03 | ECG_ITS ---
Measurements Intervals [place] Rate: 70 P: 86 NC: 204 QRS: 16 QRSD: 85 T: 68 QT: 381 QTc: 412 Interpretive Statements ELECTRONIC ATRIAL PACEMAKER DELAYED PRECORDIAL R/S TRANSITION BORDERLINE ST-T WAVE ABNORMALITY- ANT/HIGH LAT LEADS BASELINE ARTIFACT- V3, V6 BORDERLINE ECG COMPARED TO ECG 10/05/2023 12:12:20 NO SIGNIFICANT CHANGES Electronically Signed On 10-12-2023 16:26:08 GASOLINE ATTENDANT by Aditya South D.O.
--- NOTE | 2023-10-12 13:09 | ED.NEUROSD ---
HPI - Neuro Symptoms/Deficit General Chief Complaint: Neuro Symptoms/Deficit Stated Complaint: SLURRED SPEECH Related Data Home Medications Medication Instructions Recorded Confirmed losartan 50 mg tablet 100 mg PO DAILY 12/17/19 10/09/23 potassium 99 mg tablet 99 mg PO DAILY 12/17/19 10/09/23 aspirin 81 mg tablet,delayed 81 mg PO .qod 07/11/23 10/09/23 release (Adult Low Dose Aspirin) amlodipine 10 mg tablet 10 mg PO DAILY 10/09/23 10/09/23 atorvastatin 20 mg tablet 10 mg PO DAILY 10/09/23 10/09/23 bupropion HCl 75 mg tablet 75 mg PO DAILY 10/09/23 10/09/23 magnesium oxide 250 mg PO DAILY 10/09/23 10/09/23 ondansetron 4 mg disintegrating 4 mg PO Q6H 10/09/23 10/09/23 tablet Allergies Allergy/AdvReac Type Severity Reaction Status Date / Time cefuroxime Allergy Severe Diarrhea, Verified 10/02/23 14:47 vomiting codeine Allergy Severe Muscle Pain Verified 10/02/23 14:47 Sulfa (Sulfonamide Allergy Intermediate upset Verified 10/02/23 14:47 Antibiotics) stomach, problem breathing amitriptyline Allergy Mild Muscle Verified 10/02/23 14:47 Spasms amlodipine Allergy Mild Nausea Verified 10/02/23 14:47 cilostazol Allergy Mild Palpitation Verified 10/02/23 14:47 s divalproex sodium Allergy Mild Muscle Pain Verified 10/02/23 14:47 hydrocodone Allergy Mild Muscle Pain Verified 10/02/23 14:47 celecoxib Allergy Shakiness Verified 10/02/23 14:47 [facility] Past Medical History Medical History Abnormal white blood cell count ANGELIA (acute kidney injury) Alteration in mobility due to trauma Apical lung scarring Back contusion Bradycardia Coronary artery disease involving [place] coronary artery of [place] heart Degenerative arthritis of knee, bilateral Essential (primary) hypertension Fall (on)(from) incline, initial encounter Fatigue Heart disease History of arthritis History of peripheral vascular disease Hyperlipidemia Nausea & vomiting MATHEW (obstructive sleep apnea) Surgical History Surgical History H/O cataract extraction H/O colonoscopy with polypectomy H/O heart artery stent History of arthroscopy of knee 01/01/2019 09/07/2015 History of cholecystectomy 11/25/1984 History of intravascular stent placement History of tonsillectomy Pacemaker Family History Family History Mother Carcinoma of colon Father Malignant neoplasm of prostate Other Diabetes mellitus Family history of cardiovascular disease Family history of mental disorder Hypertension Social History Social History Social History: She is and lives home alone. She is a former smoker. She has 5 children. She is retired Code status full code Smoking packs per day: 1 Smoking cigarettes per day: 20.0 Years smoked: 20 Smoking pack-years: 20.00 Smoking status: Former smoker Tobacco type: cigarettes Second hand tobacco smoke exposure: No Smoking end date: 11/25/04 Alcohol intake: never Substance use: never Substance use type: former substance user Lack of Transportation: YES Lack of Food: Never True Current Housing: I Have Housing Concerned About Future Housing: No Difficulty Paying Gas/Electric Bills: No Difficulty Paying for Meds: No Currently Unemployed: No Education: High School Diploma/GED Difficulty w/ Childcare or Family Care: No Living arrangements: alone Occupation/Education: retired Gender identity (if verbalized by the patient): Female Sexual Orientation (if Verbalized by the Patient): Straight or Heterosexual Spiritual care concerns: No Discharge Plan Discharge Prescriptions: No Action solifenacin 10 mg tablet 10 mg PO DAILY Qty: 90 0RF losartan 50 mg tablet 100 mg PO DAILY potassium 99 mg
--- NOTE | 2023-10-12 13:10 | ED.NEUROSD ---
HPI - Neuro Symptoms/Deficit General Chief Complaint: Neuro Symptoms/Deficit Stated Complaint: SLURRED SPEECH Time Seen by Provider: 10/12/23 13:10 Source: patient Mode of arrival: EMS Limitations: no limitations History of Present Illness HPI Narrative: 87 years old white female came from [facility] with sudden onset of left facial drooping left upper and left lower extremity weakness noticed around 10:00 a.m.. Patient also was choking on her lunch and her speech was very slurred. The nurse at the rehab center is telling me that patient was admitted to rehab after discharge from [facility] with the right deficit and currently having left deficit. Patient is full code. On arrival to the ED patient speech still slightly slurry, patient is telling me that she noticed that she was not able to talk right for a while then his speech start improving but not back to normal as much as yesterday.45 minute later the patient's daughter and son arrived to the ED and is telling me that patient had a dental rhythm last night and her face was symmetrical her speech was clear ears compared to today. Today she have left facial drooping and her speech is not right. Related Data Home Medications Medication Instructions Recorded Confirmed losartan 50 mg tablet 100 mg PO DAILY 12/17/19 10/09/23 potassium 99 mg tablet 99 mg PO DAILY 12/17/19 10/09/23 aspirin 81 mg tablet,delayed 81 mg PO .qod 07/11/23 10/09/23 release (Adult Low Dose Aspirin) amlodipine 10 mg tablet 10 mg PO DAILY 10/09/23 10/09/23 atorvastatin 20 mg tablet 10 mg PO DAILY 10/09/23 10/09/23 bupropion HCl 75 mg tablet 75 mg PO DAILY 10/09/23 10/09/23 magnesium oxide 250 mg PO DAILY 10/09/23 10/09/23 ondansetron 4 mg disintegrating 4 mg PO Q6H 10/09/23 10/09/23 tablet Allergies Allergy/AdvReac Type Severity Reaction Status Date / Time cefuroxime Allergy Severe Diarrhea, Verified 10/02/23 14:47 vomiting codeine Allergy Severe Muscle Pain Verified 10/02/23 14:47 Sulfa (Sulfonamide Allergy Intermediate upset Verified 10/02/23 14:47 Antibiotics) stomach, problem breathing amitriptyline Allergy Mild Muscle Verified 10/02/23 14:47 Spasms amlodipine Allergy Mild Nausea Verified 10/02/23 14:47 cilostazol Allergy Mild Palpitation Verified 10/02/23 14:47 s divalproex sodium Allergy Mild Muscle Pain Verified 10/02/23 14:47 hydrocodone Allergy Mild Muscle Pain Verified 10/02/23 14:47 celecoxib Allergy Shakiness Verified 10/02/23 14:47 Review of Systems Review of Systems: All systems reviewed & are unremarkable except as noted in HPI and below PMFSH Past Medical History Medical History Abnormal white blood cell count ANGELIA (acute kidney injury) Alteration in mobility due to trauma Apical lung scarring Back contusion Bradycardia Coronary artery disease involving [place] coronary artery of [place] heart Degenerative arthritis of knee, bilateral Essential (primary) hypertension Fall (on)(from) incline, initial encounter Fatigue Heart disease History of arthritis History of peripheral vascular disease Hyperlipidemia Nausea & vomiting MATHEW (obstructive sleep apnea) Surgical History Surgical History H/O cataract extraction H/O colonoscopy with polypectomy H/O heart artery stent History of arthroscopy of knee 01/01/2019 09/07/2015 History of cholecystectomy 11/25/1984 History of intravascular stent placement History of tonsillectomy Pacemaker Family History Family History Mother Carcinoma of colon Father Malignant neoplasm of prostate Other Diabetes mellitus Family history of cardiovascular disease Family history of mental disorder Hypertension Social History Social History Social History: She is and lives
[2023-10-12 13:25] LABS: Basophils Percent Auto 0.3 % (0.2-1.2); Eosinophils Absolute Auto 0.1 K/mm3 (0-0.3); Hematocrit 36.7 % (37.0-47.0); Hemoglobin 11.9 g/dL (12.0-15.0); Immature Granulocyte Absolute 0.06 K/mm3 (0.00-0.031); Immature Granulocyte Percent A 0.7 % (0-0.5); Lymphocytes Absolute Auto 3.16 K/mm3 (0.9-3.2); Lymphocytes Percent Auto 36.8 % (18.3-44.2); Mean Corpuscular HGB Conc 32.4 g/dl (32-36); Mean Corpuscular Hemoglobin 31.4 pg (26-34); Mean Corpuscular Volume 96.8 fl (80-100); Mean Platelet Volume 9.3 fl (7.4-10.4); Monocytes Absolute Auto 0.7 K/mm3 (0.1-0.6); Monocytes Percent Auto 8.6 % (2.6-8.5); Neutrophils Absolute Auto 4.5 K/mm3 (1.3-6.7); Neutrophils Percent Auto 52.6 % (45.5-73.1); Platelet Count Result 198 k/mm3 (150-375); Red Blood Count 3.79 M/mm3 (4.2-5.4); Red Cell Distribution Width 13.1 % (11.5-14.5); White Blood Count 8.6 K/mm3 (4.5-10.0)
[2023-10-12 13:35] LABS: Alanine Aminotransferase 36 U/L (6-35); Albumin Level 3.4 g/dL (3.5-5.1); Alkaline Phosphatase 55 U/L (38-126); Anion Gap 8 mmol/L (8-16); Aspartate Amino Transferase 28 U/L (14-36); Bilirubin,Total 0.6 mg/dL (0.2-1.3); Blood Urea Nitrogen 27 mg/dL (7-17); Calcium 9.3 mg/dL (8.4-10.2); Carbon Dioxide 24 mmol/L (22-30); Chloride 107 mmol/L (98-107); Estimated CRCL calculation 34 ml/min; Estimated Glomerular Filt Rate 53; Glucose 111 mg/dL (65-110); Potassium 4.3 mmol/L (3.4-5.0); Sodium 139 mmol/L (137-145)
[2023-10-12 13:42] LABS: Prothrombin Time 14.1 Seconds (11.1-14.7)
[2023-10-12 13:44] LABS: Partial Thromboplastin Time 33.7 SECONDS (22.3-36.8)
[2023-10-12 13:47] LABS: Troponin I < 0.012 ng/mL (0.000-0.034)
--- NOTE | 2023-10-12 23:16 | PC.NURSE ---
bed assignment at [facility] [id number].
== END 2023-10-13 00:11 | disposition short-term general hospital (02) ==
PROVIDERS: Emergency Medicine; Emergency Provider Emergency Medicine; PCP Family Medicine
DX: I63.9 Cerebral infarction, unspecified (principal); R29.707 NIHSS score 7; I25.10 Atherosclerotic heart disease of native coronary artery without angina pectoris; I73.9 Peripheral vascular disease, unspecified; E78.5 Hyperlipidemia, unspecified; G47.33 Obstructive sleep apnea (adult) (pediatric); M17.0 Bilateral primary osteoarthritis of knee; Z98.49 Cataract extraction status, unspecified eye; Z95.5 Presence of coronary angioplasty implant and graft; Z95.0 Presence of cardiac pacemaker; Z87.891 Personal history of nicotine dependence; Z90.49 Acquired absence of other specified parts of digestive tract; Z79.82 Long term (current) use of aspirin; I51.7 Cardiomegaly; R90.82 White matter disease, unspecified; R94.31 Abnormal electrocardiogram [ECG] [EKG]
CPT/HCPCS: 36415; 70450; 71045; 80053; 84484; 85025; 85610; 85730; 93005; 99285

== ENCOUNTER 2023-11-16 00:42 | Emergency (ER) | payer MEDICARE, SELFPAY ==
--- NOTE | ~2023-11-16 | CT_ITS ---
EXAMINATION: CT brain wo con DATE: 11/16/2023 01:48 INDICATION: Altered mental status. TECHNIQUE: Computed tomography (CT) of the head was performed without intravenous contrast. The mA wa s adjusted according to patient size. Iterative reconstruction technique was employed. Exam dose: 60 5.33 mGy-cm total exam DLP. COMPARISON: 10/12/2023 CT brain FINDINGS: Focal encephalomalacia is noted at the site of former right frontoparietal hematoma noted o n 10/12/2023. There is nonspecific diminished attenuation of the cerebral white matter, likely due to chronic small vessel ischemic changes. Prominent bilateral carotid siphon internal carotid artery calcifications a s well as bilateral vertebral artery and basilar artery calcifications are noted. Chronic right basal ganglia lacunar infarct No intracranial mass lesion or hemorrhage. No midline shift or mass effect. No subdural or epidural hematoma. There is moderate mucoperiosteal thickening of the maxillary sinus and patchy opacification of ethmoi d air cells bilaterally. No fracture or bone destruction of the cranial vault. IMPRESSION: Focal encephalomalacia at site of recent right frontoparietal hematoma Cerebral atherosclerosis and chronic small vessel ischemic changes of the cerebral white matter Right basal ganglia chronic lacunar infarct Bilateral maxillary and ethmoid sinus disease Reviewed, dictated and finalized at [facility]. Reviewed, dictated and finalized at location A. OGGER IMPRESSION: Focal encephalomalacia at site of recent right frontoparietal shama hilda Cerebral atherosclerosis and chronic small vessel ischemic changes of the cereb ral white matter Right basal ganglia chronic lacunar infarct Bilateral maxillary and ethmoid sinus disease
--- NOTE | ~2023-11-16 | XR_ITS ---
XR chest 1V portable 11/16/2023 01:30 Indication: Altered mental status. Covid. Procedure: AP portable chest Comparison: Comparison to multiple prior studies sequentially, with oldest reviewed study dated 08/25. Findings: Cardiomegaly. Pacemaker leads are stable. There is evidence of chronic granulomatous diseas e. No focal air space disease, pulmonary edema, pleural effusion or suspected pneumothorax. Impression: 1: No acute cardiopulmonary disease. Reviewed, dictated and finalized at location A. AGE THERAPIST Impression: 1: No acute cardiopulmonary disease.
[2023-11-16 00:53] VITALS: BP 138/67; PULSE 70; RESP 15; TEMP 36.6; O2SAT 98
[2023-11-16 00:59] VITALS: O2SAT 100
--- NOTE | 2023-11-16 01:03 | PC.NURSE ---
Addendum entered by Myla Santiago RN 11/16/23 01:14: Patient was given the lorazepam due to dementia and recent history of stroke and frequent falls. Per [facility] nurse, patient's daughter that is visiting from [place] called 911 to be transported to this ED for evaluation. Original Note: This RN spoke with nurse at [facility] for more information on patient. Covid positive on 11/08/23, was being treated for UTI and finished last day of 10 day treatment for it yesterday, was given lorazepam 0.5 mg orally in applesauce at 2200.
--- NOTE | 2023-11-16 01:10 | ED.AMS ---
HPI - Altered Mental Status General Chief Complaint: Altered Mental Status Stated Complaint: AMS, Hx OF DEMENTIA Time Seen by Provider: 11/16/23 00:53 History of Present Illness HPI narrative: 88-year-old female present to the emergency department for evaluation of altered mental status. Family states that the patient has not been at her norm. [facility] felt that the patient is at her norm. Related Data Home Medications Medication Instructions Recorded Confirmed No Home Medications 11/19/23 11/19/23 Allergies Allergy/AdvReac Type Severity Reaction Status Date / Time codeine Allergy Severe Muscle Pain Verified 10/02/23 14:47 Sulfa (Sulfonamide Allergy Intermediate upset Verified 10/02/23 14:47 Antibiotics) stomach, problem breathing amitriptyline Allergy Mild Muscle Verified 10/02/23 14:47 Spasms divalproex sodium Allergy Mild Muscle Pain Verified 10/02/23 14:47 hydrocodone Allergy Mild Muscle Pain Verified 10/02/23 14:47 cefuroxime AdvReac Severe Diarrhea, Verified 11/19/23 07:21 vomiting amlodipine AdvReac Mild Nausea Verified 11/19/23 07:21 cilostazol AdvReac Mild Palpitation Verified 11/19/23 07:21 s celecoxib AdvReac Shakiness Verified 11/19/23 07:21 Review of Systems Review of Systems: All systems reviewed & are unremarkable except as noted in HPI and below PMFSH Past Medical History Medical History Benign paroxysmal positional vertigo COPD (chronic obstructive pulmonary disease) Coronary artery disease involving [place] coronary artery of [place] heart Degenerative arthritis of knee, bilateral Dementia Diabetes mellitus Essential (primary) hypertension GERD (gastroesophageal reflux disease) History of arthritis History of peripheral vascular disease Hyperlipidemia Left hemiparesis MATHEW (obstructive sleep apnea) Peripheral vascular disease Stent placement in 2019([facility]) Rosacea Sciatica associated with disorder of lumbar spine TIA (transient ischemic attack) Vitamin B12 deficiency Surgical History Surgical History H/O cataract extraction H/O colonoscopy with polypectomy H/O heart artery stent History of arthroscopy of knee 01/01/2019 09/07/2015 History of cholecystectomy 11/25/1984 History of intravascular stent placement History of tonsillectomy Pacemaker Family History Family History Mother Carcinoma of colon Father Malignant neoplasm of prostate Other Diabetes mellitus Family history of cardiovascular disease Family history of mental disorder Hypertension Social History Social History Social History: [place] [facility] [place] is a former smoker. She has 5 children. She is retired. Code status: Per group home documentation DNR/DNI Smoking packs per day: 1 Smoking cigarettes per day: 20.0 Years smoked: 20 Smoking pack-years: 20.00 Smoking status: Former smoker Tobacco type: cigarettes Second hand tobacco smoke exposure: No Smoking end date: 11/25/04 Alcohol intake: never Substance use: never Substance use type: former substance user Lack of Transportation: YES Lack of Food: Never True Current Housing: I Have Housing Concerned About Future Housing: No Difficulty Paying Gas/Electric Bills: No Difficulty Paying for Meds: No Currently Unemployed: No Education: High School Diploma/GED Difficulty w/ Childcare or Family Care: No Living arrangements: alone Occupation/Education: retired Gender identity (if verbalized by the patient): Female Sexual Orientation (if Verbalized by the Patient): Straight or Heterosexual Spiritual care concerns: No Exam Narrative: APPEARANCE: Well-appearing HEAD: normocephalic, atraumatic. EYES
[2023-11-16 01:27] LABS: Basophils Percent Auto 0.2 % (0.2-1.2); Eosinophils Percent Auto 0.5 % (0-4.4); Hematocrit 35.7 % (37.0-47.0); Hemoglobin 11.8 g/dL (12.0-15.0); Immature Granulocyte Absolute 0.02 K/mm3 (0.00-0.031); Immature Granulocyte Percent A 0.3 % (0-0.5); Lymphocytes Absolute Auto 2.05 K/mm3 (0.9-3.2); Lymphocytes Percent Auto 35.4 % (18.3-44.2); Mean Corpuscular HGB Conc 33.1 g/dl (32-36); Mean Corpuscular Hemoglobin 31.4 pg (26-34); Mean Corpuscular Volume 94.9 fl (80-100); Mean Platelet Volume 9.8 fl (7.4-10.4); Monocytes Absolute Auto 0.6 K/mm3 (0.1-0.6); Monocytes Percent Auto 9.5 % (2.6-8.5); Neutrophils Absolute Auto 3.1 K/mm3 (1.3-6.7); Neutrophils Percent Auto 54.1 % (45.5-73.1); Platelet Count Result 152 k/mm3 (150-375); Red Blood Count 3.76 M/mm3 (4.2-5.4); White Blood Count 5.8 K/mm3 (4.5-10.0)
[2023-11-16 01:38] LABS: Alveolar/Arterial O2 Gradient 25.8 mmHg; Base Excess ABG 0.7 mEq/l (+/-2.0); Fractional Inspired Oxygen 21 %; HCO3 ABG 23.7 mEq/l (22.0-26.0); Oxygen Content ABG 16.4 %vol (16.0-22.0); Oxygen Saturation ABG 97.1 % (95.0-100.0); Oxyhemoglobin 95.3 % THb (90.0-100.0); PCO2 ABG 32.7 mmHg (35.0-45.0); PO2 ABG 84.8 mmHg (80.0-100.0); PO2 FiO2 Ratio Arterial Blood 4.04 %; Total Hemoglobin 12.2 g/dL (12.0-18.0); pH ABG 7.478 (7.350-7.450)
[2023-11-16 01:39] LABS: Device ROOM AIR; Site Drawn RIGHT BRACHIAL
[2023-11-16 01:58] LABS: Alanine Aminotransferase 18 U/L (6-35); Albumin Level 4.1 g/dL (3.5-5.1); Alkaline Phosphatase 64 U/L (38-126); Anion Gap 11 mmol/L (8-16); Aspartate Amino Transferase 31 U/L (14-36); Bilirubin,Total 0.8 mg/dL (0.2-1.3); Blood Urea Nitrogen 21 mg/dL (7-17); Calcium 9.8 mg/dL (8.4-10.2); Carbon Dioxide 26 mmol/L (22-30); Chloride 103 mmol/L (98-107); Estimated CRCL calculation 32 ml/min; Estimated Glomerular Filt Rate 59; Glucose 118 mg/dL (65-110); Potassium 3.6 mmol/L (3.4-5.0); Sodium 140 mmol/L (137-145)
[2023-11-16 02:01] LABS: Influenza A QL RT-PCR Negative (Negative); Influenza B QL RT-PCR Negative (Negative); RSV RNA, RT-PCR Negative (Negative); SARS-CoV-2 RNA PCR Positive (Negative)
--- NOTE | 2023-11-16 02:22 | PC.NURSE ---
This RN spoke with Barbara from [facility] to give caregiver an update on pt.
[2023-11-16 02:23] LABS: Appearance Urine Clear (Clear); Bilirubin Urine Negative (Negative); Blood Urine Negative (Negative); Color Urine Yellow (Yellow); Glucose Urine UA Negative (Negative); Ketones Urine Negative (Negative); Leukocyte Esterase Ur Negative LEU/UL (Negative); Nitrate Urine Negative (Negative); Protein Urine Negative (Negative); Specific Grav Ur 1.005 (1.001-1.035); Urobilinogen Urine 0.2 mg/dL (<2.0); pH Urine 6.5 (5.0-9.0)
[2023-11-16 02:57] LABS: Add Urine Microscopic? NO
--- NOTE | 2023-11-16 04:09 | PC.NURSE ---
This RN spoke with Spencer Toscano, patient's daughter/VU Barros, and patient's son Germain in the waiting room. All agreeable to patient being sent back to [facility]. Family plans to follow up and work on getting patient put into a memory care.
[2023-11-16 04:38] VITALS: BP 122/71; PULSE 68; RESP 15; O2SAT 97
== END 2023-11-16 04:50 ==
PROVIDERS: Emergency Provider Emergency Medicine; PCP Family Medicine
DX: R45.1 Restlessness and agitation (principal); I10 Essential (primary) hypertension; E11.51 Type 2 diabetes mellitus with diabetic peripheral angiopathy without gangrene; J44.9 Chronic obstructive pulmonary disease, unspecified; I25.10 Atherosclerotic heart disease of native coronary artery without angina pectoris; F03.90 Unspecified dementia, unspecified severity, without behavioral disturbance, psychotic disturbance, mood disturbance, and anxiety; K21.9 Gastro-esophageal reflux disease without esophagitis; E78.5 Hyperlipidemia, unspecified; G47.33 Obstructive sleep apnea (adult) (pediatric); Z86.73 Personal history of transient ischemic attack (TIA), and cerebral infarction without residual deficits; Z87.891 Personal history of nicotine dependence; Z20.822 Contact with and (suspected) exposure to COVID-19
CPT/HCPCS: 36415; 36600; 70450; 71045; 80053; 81003; 82805; 85025; 87637; 99284

== ENCOUNTER 2023-11-17 14:58 | Inpatient (IN) | payer MEDICARE, SELFPAY ==
--- NOTE | ~2023-11-17 | CT_ITS ---
EXAMINATION: CT brain wo con DATE: 11/18/2023 02:21 INDICATION: Altered mental state. Agitation. TECHNIQUE: Computed tomography (CT) of the head was performed without intravenous contrast. The mA wa s adjusted according to patient size. Iterative reconstruction technique was employed. Exam dose: 12 10.67 mGy-cm total exam DLP. COMPARISON: 11/16/2023 CT brain FINDINGS: The examination is technically limited due to motion and streak artifact. There is nonspecific diminished attenuation cerebral white matter, likely due to chronic small vessel ischemic changes. No intracranial mass lesion or hemorrhage, midline shift or mass effect or subdural or epidural hemat yair is detected. No skull fracture is evident. IMPRESSION: Limited examination due to motion and streak artifact Reviewed, dictated and finalized at [facility]. Reviewed, dictated and finalized at [facility]. AIDE
--- NOTE | ~2023-11-17 | XR_ITS ---
XR abdomen obstructive series DATE: 11/18/2023 13:00 INDICATION: Constipation TECHNIQUE: Portable supine and upright AP views on 11/18/2023 at 1256 and 1257 hours COMPARISON: None FINDINGS: Left-sided transvenous pacemaker device with leads overlying right atrium and right ventric le. The lower lung zones appear clear. No pleural effusion or intraperitoneal free air is detected. There is moderately prominent of fecal material in the colon, primarily the ascending and descending colon. No bowel obstruction is detected. The psoas shadows are intact. No visceromegaly is noted. There are multiple calcified splenic granulomas. Degenerative spurring of the thoracic and lumbar spine. Moderate moderate bilateral hip osteoarthriti s. Osteopenia. IMPRESSION: No bowel obstruction or free air. Moderate amount of fecal material in the colon Reviewed, dictated and finalized at [facility]. Reviewed, dictated and finalized at [facility]. L ERECTING PUSHER
[2023-11-17 15:08] VITALS: BP 111/84; PULSE 70; RESP 17; TEMP 36.3; O2SAT 100
--- NOTE | 2023-11-17 17:05 | ED.AMS ---
HPI - Altered Mental Status General Chief Complaint: Altered Mental Status <Nicolasa Vincent PA-C - Last Filed: 11/17/23 19:15> Stated Complaint: dementia and anxiety <Nicolasa Vincent PA-C - Last Filed: 11/17/23 19:15> Time Seen by Provider: 11/17/23 17:04 <Nicolasa Vincent PA-C - Last Filed: 11/17/23 19:15> Source: patient and family <Nicolasa Vincent PA-C - Last Filed: 11/17/23 19:15> Mode of arrival: wheelchair <Nicolasa Vincent PA-C - Last Filed: 11/17/23 19:15> Limitations: dementia <HERBERT Zapata Last Filed: 11/17/23 19:15> History of Present Illness HPI narrative: This is a 88 year old female that presents to the ER for increased agitation. Family reports a recent stroke for which she has had worsening mental status since. She is currently in assisted living at [facility]. They are having to be there around the clock due to her agitation in fear that she will get up and fall again. They are wanting for her to have more help than she currently does, but have not been able to arrange that due to it being the weekend. <Nicolasa Vincent PA-C - Last Filed: 11/17/23 19:15> Related Data Home Medications: Home Medications Medication Instructions Recorded Confirmed losartan 50 mg tablet 100 mg PO DAILY 12/17/19 11/17/23 aspirin 81 mg tablet,delayed 81 mg PO .qod 07/11/23 11/17/23 release (Adult Low Dose Aspirin) amlodipine 10 mg tablet 10 mg PO DAILY 10/09/23 11/17/23 atorvastatin 20 mg tablet 10 mg PO DAILY 10/09/23 11/17/23 bupropion HCl 75 mg tablet 75 mg PO DAILY 10/09/23 11/17/23 magnesium oxide 250 mg PO DAILY 10/09/23 11/17/23 ondansetron 4 mg disintegrating 4 mg PO Q6H 10/09/23 11/17/23 tablet levetiracetam 500 mg BYMOUTH BID 10/15/23 11/17/23 omeprazole 40 mg capsule,delayed 40 mg PO DAILY 11/17/23 release <Nicolasa Vincent PA-C - Last Filed: 11/17/23 19:15> Allergies/Adverse Reactions: Allergies Allergy/AdvReac Type Severity Reaction Status Date / Time cefuroxime Allergy Severe Diarrhea, Verified 10/02/23 14:47 vomiting codeine Allergy Severe Muscle Pain Verified 10/02/23 14:47 Sulfa (Sulfonamide Allergy Intermediate upset Verified 10/02/23 14:47 Antibiotics) stomach, problem breathing amitriptyline Allergy Mild Muscle Verified 10/02/23 14:47 Spasms amlodipine Allergy Mild Nausea Verified 10/02/23 14:47 cilostazol Allergy Mild Palpitation Verified 10/02/23 14:47 s divalproex sodium Allergy Mild Muscle Pain Verified 10/02/23 14:47 hydrocodone Allergy Mild Muscle Pain Verified 10/02/23 14:47 celecoxib Allergy Shakiness Verified 10/02/23 14:47 <Nicolasa Vincent PA-C - Last Filed: 11/17/23 19:15> Review of Systems Review of Systems: ROS unobtainable: Yes unobtainable due to medical condition <Nicolasa Vincent PA-C - Last Filed: 11/17/23 19:15> [facility] Past Medical History Medical History: Medical History Abnormal white blood cell count ANGELIA (acute kidney injury) Alteration in mobility due to trauma Apical lung scarring Back contusion Bradycardia Coronary artery disease involving [place] coronary artery of [place] heart Degenerative arthritis of knee, bilateral Essential (primary) hypertension Fall (on)(from) incline, initial encounter Fatigue Heart disease History of arthritis History of peripheral vascular disease Hyperlipidemia Nausea & vomiting MATHEW (obstructive sleep apnea) <Nicolasa Vincent PA-C - Last Filed: 11/17/23 19:15> Surgical History Surgical History: Surgical History H/O cataract extraction H/O colonoscopy with polypectomy H/O heart artery stent History of arthroscopy of knee 01/01/2019 09/07/2015 History of cholecystectomy 11/25/1984 History of intravascular stent placement History of tonsillectomy Pacemaker <Nicolasa Vincent PA-C - Last Filed: 11/17/23 1
[2023-11-17 17:30] VITALS: BP 160/90; PULSE 98; RESP 16; O2SAT 96
--- NOTE | 2023-11-17 17:30 | PC.NURSE ---
Daughter reports pt has known dementia and for the past week has had increased anxiety, not eating and not drinking.
[2023-11-17 17:49] LABS: Basophils Percent Auto 0.3 % (0.2-1.2); Eosinophils Percent Auto 0.5 % (0-4.4); Hematocrit 37.2 % (37.0-47.0); Hemoglobin 12.6 g/dL (12.0-15.0); Immature Granulocyte Absolute 0.03 K/mm3 (0.00-0.031); Immature Granulocyte Percent A 0.5 % (0-0.5); Lymphocytes Absolute Auto 2.26 K/mm3 (0.9-3.2); Lymphocytes Percent Auto 34.7 % (18.3-44.2); Mean Corpuscular HGB Conc 33.9 g/dl (32-36); Mean Corpuscular Hemoglobin 31.2 pg (26-34); Mean Corpuscular Volume 92.1 fl (80-100); Mean Platelet Volume 9.8 fl (7.4-10.4); Monocytes Absolute Auto 0.5 K/mm3 (0.1-0.6); Monocytes Percent Auto 8.1 % (2.6-8.5); Neutrophils Absolute Auto 3.6 K/mm3 (1.3-6.7); Neutrophils Percent Auto 55.9 % (45.5-73.1); Platelet Count Result 184 k/mm3 (150-375); Red Blood Count 4.04 M/mm3 (4.2-5.4); Red Cell Distribution Width 12.1 % (11.5-14.5); White Blood Count 6.5 K/mm3 (4.5-10.0)
[2023-11-17 18:00] LABS: Alanine Aminotransferase 19 U/L (6-35); Alkaline Phosphatase 66 U/L (38-126); Anion Gap 11 mmol/L (8-16); Aspartate Amino Transferase 27 U/L (14-36); Bilirubin,Total 0.9 mg/dL (0.2-1.3); Blood Urea Nitrogen 23 mg/dL (7-17); Carbon Dioxide 23 mmol/L (22-30); Chloride 105 mmol/L (98-107); Estimated CRCL calculation 26 ml/min; Estimated Glomerular Filt Rate 47; Glucose 124 mg/dL (65-110); Potassium 3.6 mmol/L (3.4-5.0); Sodium 139 mmol/L (137-145)
--- NOTE | 2023-11-17 19:02 | PC.NURSE ---
hospital monitor turned off per family request because the BP cuff and pulse ox agitate pt
[2023-11-17 20:44] VITALS: BP 110/104; PULSE 73; RESP 15; O2SAT 100
[2023-11-17] MEDS: LORazepam INJ (*CRX) 2 MG/ML VIAL 0.5 MG IV PUSH (21:07)
[2023-11-17 21:22] VITALS: O2SAT 99
[2023-11-17 21:26] VITALS: BP 102/61; PULSE 69; RESP 18; TEMP 36.4; O2SAT 99
[2023-11-17 21:27] VITALS: BMI 22.5
--- NOTE | 2023-11-17 22:13 | PM.IMHP ---
H&P: HPI History of Present Illness Date/Time: 11/17/23 22:13 Chief Complaint: Increased confusion Narrative: 88-year-old female with past medical history of obstructive sleep apnea, essential hypertension, peripheral vascular disease, coronary artery disease, dementia and recent intercranial hemorrhage with subarachnoid hemorrhage 10/05/2023 who presented back to the ER from [facility] where the patient is at for rehab. The family reports patient has had increased anxiety agitation and restlessness. She has but had insomnia and decreased appetite. Field patient has lost some weight and compared to prior visits patient's weight is down about 7 kg from her hospitalization in September. Patient has had no oral intake for days and has not been taking her medications. She has only alert oriented to self. Family reports they have been at the patient's bedside constantly tract try to help divert the patient and prevent falls. Patient was brought into the ER on the for similar symptoms. Her labs at that time work stable. Her UA was unremarkable. Her COVID swab was positive with the patient had recently had COVID about 10 days ago. The patient has been afebrile. The patient was discharged back to the alf facility yesterday but returned today due to persistent and worsening symptoms. Repeat labs today were stable except for minimal increase in creatinine from baseline. Review of Systems Review of Systems: ROS unobtainable: Yes unobtainable due to mental status PMFSH Past Medical History Medical History Benign paroxysmal positional vertigo COPD (chronic obstructive pulmonary disease) Coronary artery disease involving [place] coronary artery of [place] heart Degenerative arthritis of knee, bilateral Dementia Diabetes mellitus Essential (primary) hypertension GERD (gastroesophageal reflux disease) History of arthritis History of peripheral vascular disease Hyperlipidemia Left hemiparesis MATHEW (obstructive sleep apnea) Peripheral vascular disease Stent placement in 2019([facility]) Rosacea Sciatica associated with disorder of lumbar spine TIA (transient ischemic attack) Vitamin B12 deficiency Surgical History Surgical History H/O cataract extraction H/O colonoscopy with polypectomy H/O heart artery stent History of arthroscopy of knee 01/01/2019 09/07/2015 History of cholecystectomy 11/25/1984 History of intravascular stent placement History of tonsillectomy Pacemaker Family History Family History Mother Carcinoma of colon Father Malignant neoplasm of prostate Other Diabetes mellitus Family history of cardiovascular disease Family history of mental disorder Hypertension Social History Social History (Updated 11/18/23 @ 02:11 by Jillian Guan DO) Social History: She is and lives at [facility]. She is a former smoker. She has 5 children. She is retired. Code status: Per intermediate documentation DNR/DNI Smoking packs per day: 1 Smoking cigarettes per day: 20.0 Years smoked: 20 Smoking pack-years: 20.00 Smoking status: Former smoker Tobacco type: cigarettes Second hand tobacco smoke exposure: No Smoking end date: 11/25/04 Alcohol intake: never Substance use: never Substance use type: former substance user Lack of Transportation: YES Lack of Food: Never True Current Housing: I Have Housing Concerned About Future Housing: No Difficulty Paying Gas/Electric Bills: No Difficulty Paying for Meds: No Currently Unemployed: No Education: High School Diploma/GED Difficulty w/ Childcare or Family Care: No Living arrangements: alone Occupation/Education: retired Gender identity (if verbalized by the patient): Female Sexual Orientation
[2023-11-17] MEDS: OLANZapine 10 MG INJ VIAL 5 MG IM (23:00)
[2023-11-17] MEDS: OLANZapine 10 MG INJ VIAL IM (23:50)
[2023-11-18] MEDS: WATER, STERILE FOR INJECTION 10 ML VIAL XX ×2 (05:47)
[2023-11-18 06:14] VITALS: BP 115/76; PULSE 60; RESP 18; TEMP 36.6; O2SAT 97
[2023-11-18 06:36] LABS: Hematocrit 40.1 % (37.0-47.0); Hemoglobin 13.3 g/dL (12.0-15.0); Mean Corpuscular HGB Conc 33.2 g/dl (32-36); Mean Corpuscular Hemoglobin 31.4 pg (26-34); Mean Corpuscular Volume 94.6 fl (80-100); Mean Platelet Volume 10.1 fl (7.4-10.4); Platelet Count Result 231 k/mm3 (150-375); Red Blood Count 4.24 M/mm3 (4.2-5.4); White Blood Count 10.1 K/mm3 (4.5-10.0)
[2023-11-18 07:10] LABS: Anion Gap 14 mmol/L (8-16); Blood Urea Nitrogen 24 mg/dL (7-17); Calcium 9.7 mg/dL (8.4-10.2); Carbon Dioxide 17 mmol/L (22-30); Chloride 108 mmol/L (98-107); Estimated CRCL calculation 36 ml/min; Estimated Glomerular Filt Rate > 60; Glucose 100 mg/dL (65-110); Potassium 3.7 mmol/L (3.4-5.0); Sodium 139 mmol/L (137-145)
--- NOTE | 2023-11-18 11:15 | PM.IMPN ---
Progress Note: A&P Assessment and Plan (1) Agitation: Code(s): R45.1 - Restlessness and agitation Status: Inactive Assessment and Plan: Head CT limited due to motion but showing no change UA clear on 11/16 CXR clear. Ativan prn ordered here. (2) Adult failure to thrive: Code(s): R62.7 - Adult failure to thrive Status: Acute Assessment and Plan: The patient has adult failure to thrive complicating dementia and recent intracerebral hemorrhage with subarachnoid hemorrhage who presents back to the hospital due to persistent agitation. The patient was started on Ativan as outpatient but family brought patient they felt they needed more frequent dosing. The family has been staying with the patient 17/06 to help avoid falls. Discussed options including hospice with family. All questions answered. (3) Dementia: Qualifiers: Dementia type: vascular dementia Dementia severity: severe Dementia behavioral or psychological symptom: with agitation Qualified Code(s): F01.C11 - Vascular dementia, severe, with agitation Code(s): F03.90 - Unspecified dementia, unspecified severity, without behavioral disturbance, psychotic disturbance, mood disturbance, and anxiety Status: Acute Assessment and Plan: As above (4) Rapid weight loss: Code(s): R63.4 - Abnormal weight loss Status: Acute Assessment and Plan: [place] realted to poor oral intake. Cr stable but BUn elevated to suggest dehydration Continue IV fluids (5) Cerebral hemorrhage with cognitive deficits: Code(s): I61.9 - Nontraumatic intracerebral hemorrhage, unspecified; R41.89 - Other symptoms and signs involving cognitive functions and awareness Status: Acute Assessment and Plan: Patient with recent hx of acute R parietal intraparenchymal and subarachnoid hemorrhage on 10/05/23. She was sent to [facility] for seizure prophylaxis As above Plan COVID positive - The patient at is 10 days post COVID. She is not having any respiratory symptoms. CXR clear from 11/16 DVT prophylaxis - SCDs Code status - DNR Subjective Date/time seen: 11/18/23 11:15 Interval history: 88yo female with hx of recent hemorrhagic CVA, CAD, COPD, dementia and MATHEW here for increasing confusion. Patient unable to provide hx. Family in the room and state patient has been having worsening confusion past week. Not talking much. Not eating much. Has been at [place] for about 3 weeks. Review of Systems Review of Systems: ROS unobtainable: Yes unobtainable due to mental status Exam Narrative: AF 97.9 115/76 60 18 97% ra Gen - NARD lying semi-recumbent in bed asleep Chest - Cclear to quiet respirations. nml RR CV - RRR S1/S2 Abd - Soft, Positive BS Ext - No pedal edema. left foot dressing clean, dry and intact Psych - unable to assess Skin - Warm and dry Objective Data Vital Signs Vital Signs: Vital Signs - 24 hr 11/17/23 15:08 11/17/23 17:30 11/17/23 20:44 Temperature 97.4 F L Pulse Rate 70 98 73 Respiratory Rate 17 16 15 Blood Pressure 111/84 160/90 H 110/104 H Pulse Oximetry 100 96 100 Oxygen Delivery Room Air 11/17/23 21:26 11/17/23 21:22 11/18/23 06:14 Temperature 97.6 F 97.9 F Pulse Rate 69 60 Respiratory Rate 18 18 Blood Pressure 102/61 115/76 Pulse Oximetry 99 99 97 Oxygen Delivery Room Air Intake/Output Intake/Output: Intake & Output 11/15/23 11/16/23 11/17/23 11/18/23 23:59 23:59 23:59 23:59 Intake Total 0 Output Total 0 Balance 0 Meds/Results Medications: Active Medications Generic Name Dose Route Start Last Admin Trade Name Freq PRN Reason Stop Dose Admin Aspirin 81 mg 11/19/23 09:00 Aspirin 81 Mg Enteric Tablet PO Q48H [facility] Bupropion HCl 75 mg 11/18/23 09:00 Bupropion Hcl 75 Mg Tablet PO DAILY [facility] Carvedilol 12.5 mg 11/18/23 09:00 Carvedilol 12.5 Mg Tab
[2023-11-18] MEDS: SODIUM CHLORIDE 0.9% IV 1,000 ML 70 ML IV CONT ×2 (11:41→17:28)
[2023-11-18 14:00] VITALS: BP 106/52; PULSE 70; RESP 18; TEMP 36.6; O2SAT 100
[2023-11-18] MEDS: LORazepam INJ (*CRX) 2 MG/ML VIAL 1 MG IV PUSH ×2 (16:05→21:35)
[2023-11-18 18:29] LABS: Glucose Point of Care 109 mg/dl (65-105)
[2023-11-18 21:38] VITALS: BP 146/113; PULSE 68; RESP 16; TEMP 36.7; O2SAT 100
[2023-11-18 23:26] LABS: Glucose Point of Care 107 mg/dl (65-105)
[2023-11-19] MEDS: SODIUM CHLORIDE 0.9% IV 1,000 ML 70 ML IV CONT (03:00)
[2023-11-19] MEDS: LORazepam INJ (*CRX) 2 MG/ML VIAL 1 MG IV PUSH (03:49)
[2023-11-19 05:38] VITALS: BP 174/73; PULSE 73; RESP 14; TEMP 36.1; O2SAT 99
[2023-11-19 05:49] LABS: Glucose Point of Care 92 mg/dl (65-105)
[2023-11-19 08:26] LABS: Albumin Level 3.7 g/dL (3.5-5.1); Anion Gap 14 mmol/L (8-16); Blood Urea Nitrogen 21 mg/dL (7-17); Calcium 9.1 mg/dL (8.4-10.2); Carbon Dioxide 17 mmol/L (22-30); Chloride 109 mmol/L (98-107); Estimated CRCL calculation 40 ml/min; Estimated Glomerular Filt Rate > 60; Glucose 98 mg/dL (65-110); Magnesium 1.6 mg/dL (1.6-2.3); Phosphorus 2.7 mg/dL (2.5-4.5); Potassium 3.5 mmol/L (3.4-5.0); Sodium 140 mmol/L (137-145)
[2023-11-19] MEDS: FAMOTIDINE 20 MG/2 ML VIAL IV PUSH (10:49)
[2023-11-19] MEDS: levETIRAcetam 500MG/NACL 100ML 500 MG/100 ML BAG 400 MG IVPB (10:49)
--- NOTE | 2023-11-19 11:14 | PM.IMPN ---
Progress Note: A&P Assessment and Plan (1) Agitation: Code(s): R45.1 - Restlessness and agitation Status: Inactive Assessment and Plan: Head CT limited due to motion but showing no change. Patient receiving Ativan regularly and possibly for other reasons. Ativan dose decreased and clear instructions on when to give Ativan given. CXR and UA clear on 11/16 Will see how she does with limiting the Ativan. Consider Seroquel at night if she wakes up enough to take medications. . (2) Adult failure to thrive: Code(s): R62.7 - Adult failure to thrive Status: Acute Assessment and Plan: The patient has adult failure to thrive related to her dementia and recent intracerebral hemorrhage with subarachnoid hemorrhage The patient was started on Ativan as outpatient but family felt she needed more frequent dosing. The family has been staying with the patient 17/06 to help avoid falls. Hospice has been discussed with family. All questions answered. Patient dehydrated treated with IV fluids Labs better Will need to consider feeding tube if does not wake up Change IV fluids to maintenance fluids (3) Dementia: Qualifiers: Dementia type: vascular dementia Dementia severity: severe Dementia behavioral or psychological symptom: with agitation Qualified Code(s): F01.C11 - Vascular dementia, severe, with agitation Code(s): F03.90 - Unspecified dementia, unspecified severity, without behavioral disturbance, psychotic disturbance, mood disturbance, and anxiety Status: Acute Assessment and Plan: As above (4) Rapid weight loss: Code(s): R63.4 - Abnormal weight loss Status: Acute Assessment and Plan: [place] realted to poor oral intake. IV fluids started for dehydration Continue IV fluids but change to maintenance (5) Cerebral hemorrhage with cognitive deficits: Code(s): I61.9 - Nontraumatic intracerebral hemorrhage, unspecified; R41.89 - Other symptoms and signs involving cognitive functions and awareness Status: Acute Assessment and Plan: Patient with recent hx of acute intraparenchymal hemorrhage right frontal parietal region and acute subarachnoid hemorrhage in right frontal parietal region on 10/05/23. She was sent to [facility]. Continue Keppra for seizure prophylaxis and change to IV As above Plan COVID positive - The patient is 10 days post COVID. She is not having any respiratory symptoms. CXR clear from 11/16 DVT prophylaxis - SCDs Code status - DNR Subjective Date/time seen: 11/19/23 11:14 Interval history: 88yo female with hx of recent hemorrhagic CVA, CAD, COPD, dementia and MATHEW here for increasing confusion. Patient unable to provide hx. Family in the room and they were updated. Received Ativan at 4pm, 9pm and 4am. Review of Systems Review of Systems: ROS unobtainable: Yes unobtainable due to mental status Exam Narrative: AF 96.9 174/73 73 14 99% ra Gen - NARD lying semi-recumbent in bed asleep but does arouse and moans at times Chest - Clear to quiet respirations. nml RR CV - RRR S1/S2 Abd - Soft, ND, no apparent tenderness, positive BS Ext - No pedal edema. left dorsal foot with shallow abrasion Neuro - no ankle clonus, PERRL, no flaccid limbs Psych - unable to assess Skin - Warm and dry Objective Data Vital Signs Vital Signs: Vital Signs - 24 hr 11/18/23 14:00 11/18/23 21:38 11/19/23 05:38 Temperature 97.8 F 98.1 F 96.9 F L Pulse Rate 70 68 73 Respiratory Rate 18 16 14 Blood Pressure 106/52 L 146/113 H 174/73 H Pulse Oximetry 100 100 99 Intake/Output Intake/Output: Intake & Output 11/16/23 11/17/23 11/18/23 11/19/23 23:59 23:59 23:59 23:59 Intake Total 1000 1240 Output Total 0 Balance 1000 1240 Meds/Results Medications: Active Medications Generic Name Dose Route Start Last Admin Trade Name Freq PRN Reason Stop Dose Admin Aspirin 81 mg 11/19/23
[2023-11-19 12:08] LABS: Glucose Point of Care 109 mg/dl (65-105)
[2023-11-19 12:54] VITALS: BP 150/83; PULSE 71
[2023-11-19] MEDS: KCL 20 MEQ/D5/0.9% SOD CHL 1,000 ML 70 ML IV CONT (12:55)
[2023-11-19 13:49] VITALS: BP 150/83; PULSE 70; RESP 20; TEMP 36.1; O2SAT 98
[2023-11-19 13:57] VITALS: BMI 22.5
[2023-11-19] MEDS: LORazepam INJ (*CRX) 2 MG/ML VIAL 0.5 MG IV PUSH (14:38)
[2023-11-19 18:05] LABS: Glucose Point of Care 158 mg/dl (65-105)
--- NOTE | 2023-11-27 07:01 | PM.DS ---
DS: Admitting Diagnosis Discharge Date 11/19/23 Admitting Diagnosis Increased confusion DS: Discharge Diagnosis Discharge Diagnosis (1) Agitation: Code(s): R45.1 - Restlessness and agitation Status: Inactive (2) Adult failure to thrive: Code(s): R62.7 - Adult failure to thrive Status: Acute (3) Dementia: Qualifiers: Dementia type: vascular dementia Dementia severity: severe Dementia behavioral or psychological symptom: with agitation Qualified Code(s): F01.C11 - Vascular dementia, severe, with agitation Code(s): F03.90 - Unspecified dementia, unspecified severity, without behavioral disturbance, psychotic disturbance, mood disturbance, and anxiety Status: Acute (4) Rapid weight loss: Code(s): R63.4 - Abnormal weight loss Status: Acute (5) Cerebral hemorrhage with cognitive deficits: Code(s): I61.9 - Nontraumatic intracerebral hemorrhage, unspecified; R41.89 - Other symptoms and signs involving cognitive functions and awareness Status: Acute DS: Summary Hospital Course Reason for hospitalization: 88yo female with hx of recent hemorrhagic CVA, CAD, COPD, dementia and MATHEW here for increasing confusion. Please see H&P for details. Hospital Course: Head CT limited due to motion but showing no change. The patient was started on Ativan as outpatient but family brought patient they felt she needed more frequent dosing. Ativan dose decreased and clear instructions on when to give Ativan given. CXR and UA was clear on 11/16. The patient has adult failure to thrive related to her dementia and recent intracerebral hemorrhage with subarachnoid hemorrhage. The family has been staying with the patient 17/06 to help avoid falls. Hospice was discussed with family. All questions answered. They decided to proceed with hospice care. Patient was discharged to hospice on 11/19/23 Status at Discharge Cognitive/behavioral status at discharge: stable Time Spent with Patient Time attestation: Total time spent providing and/or coordinating discharge services: 32 minutes Time spent: Greater than 30 minutes Exam Narrative: AF 96.9 174/73 73 14 99% ra Gen - NARD lying semi-recumbent in bed asleep but does arouse and moans at times Chest - Clear to quiet respirations. nml RR CV - RRR S1/S2 Abd - Soft, ND, no apparent tenderness, positive BS Ext - No pedal edema. left dorsal foot with shallow abrasion Neuro - no ankle clonus, PERRL, no flaccid limbs Psych - unable to assess Skin - Warm and dry Discharge Plan Discharge Attending physician on discharge: Daniel Olivo Consulting providers: Nicolasa Vincent; Davi Schmitt; Jillian Guan Discharging Clinician: Daniel Olivo Anticipated Discharge Date/Time: 11/19/23 10:00 Patient Disposition: Hospice - Medical Facility Activity: as tolerated Diet: as tolerated Stand Alone Forms: General Discharge Information Discharge Medications: No Action No Home Medications Date of admission: 11/19/23 09:52 Primary Care Provider: Praneeth Guido Admitting Provider: Lj Ojeda Attending physician on admission: Daniel Olivo Condition: Terminal
== END 2023-11-19 20:21 | disposition hospice, inpatient (51) | DRG 57 ==
LOC: ANHED 19:15 → ANH3MEDSUR 20:28
PROVIDERS: Internal Medicine; Admitting Provider Family Medicine; Emergency Provider Physician Assistant; PCP Family Medicine; Visit Provider Internal Medicine
DX: I69.118 Other symptoms and signs involving cognitive functions following nontraumatic intracerebral hemorrhage (principal); F01.C11 Vascular dementia, severe, with agitation; R62.7 Adult failure to thrive; I69.018 Other symptoms and signs involving cognitive functions following nontraumatic subarachnoid hemorrhage; R63.4 Abnormal weight loss; R45.1 Restlessness and agitation; I25.10 Atherosclerotic heart disease of native coronary artery without angina pectoris; J44.9 Chronic obstructive pulmonary disease, unspecified; G47.33 Obstructive sleep apnea (adult) (pediatric); M17.0 Bilateral primary osteoarthritis of knee; E86.0 Dehydration; I73.9 Peripheral vascular disease, unspecified; E78.5 Hyperlipidemia, unspecified; I10 Essential (primary) hypertension; Z66 Do not resuscitate; Z79.82 Long term (current) use of aspirin; Z98.49 Cataract extraction status, unspecified eye; Z95.5 Presence of coronary angioplasty implant and graft; Z90.49 Acquired absence of other specified parts of digestive tract; Z87.891 Personal history of nicotine dependence; Z86.16 Personal history of COVID-19
CPT/HCPCS: 36415; 36600; 70450; 71045; 74019; 80048; 80053; 80069; 81003; 82805; 82948; 83735; 85025; 85027; 87637; 96361; 96372; 96374; 96376; 99284; 99285; G0378; J1953; J2060; J2359; J3480; J7030

== ENCOUNTER 2023-11-19 20:22 | HOS | payer OTHER, MEDICARE, SELFPAY ==
[2023-11-19] MEDS: MORPHINE SULFATE (*CRX) 2 MG/ML INJ IV PUSH (22:09)
[2023-11-19] MEDS: MORPHINE SULFATE INJ (*CRX) 50 MG in SODIUM CHLORIDE 0.9% IV 95 ML IV CONT (22:13)
[2023-11-19 22:45] VITALS: BMI 22.5
[2023-11-19] MEDS: diazePAM INJ (*CRX) 10 MG/2 ML SYRINGE 5 MG IV PUSH (22:58)
[2023-11-19] MEDS: ARTIFICIAL TEARS OPHTH SOLN 15 ML BOTTLE 1 DROP EACH EYE (23:22)
[2023-11-20 08:00] VITALS: BP 106/50; PULSE 70; RESP 12; TEMP 36.4; O2SAT 92
[2023-11-20] MEDS: ARTIFICIAL TEARS OPHTH SOLN 15 ML BOTTLE 1 DROP EACH EYE ×2 (10:30→22:33)
--- NOTE | 2023-11-20 12:57 | PM.IMHP ---
H&P: HPI History of Present Illness Date/Time: 11/20/23 12:57 Chief Complaint: Uncontrolled dyspnea and restlessness Narrative: This 88-year-old female was at long-term rehab which she contracted COVID-19 approximately 10 days prior to admission [facility]. Since then she has been declining. She has not been eating or drinking. She has become more confuse and agitated. Because of her declining functional status and mentation and uncontrolled dyspnea and restlessness or family opted for symptom management only on the inpatient hospice service. Review of Systems Review of Systems: ROS unobtainable: Yes unobtainable due to medical condition PMF Past Medical History Medical History Benign paroxysmal positional vertigo COPD (chronic obstructive pulmonary disease) Coronary artery disease involving [place] coronary artery of [place] heart Degenerative arthritis of knee, bilateral Dementia Diabetes mellitus Essential (primary) hypertension GERD (gastroesophageal reflux disease) History of arthritis History of peripheral vascular disease Hyperlipidemia Left hemiparesis MATHEW (obstructive sleep apnea) Peripheral vascular disease Stent placement in 2019([facility]) Rosacea Sciatica associated with disorder of lumbar spine TIA (transient ischemic attack) Vitamin B12 deficiency Surgical History Surgical History H/O cataract extraction H/O colonoscopy with polypectomy H/O heart artery stent History of arthroscopy of knee 01/01/2019 09/07/2015 History of cholecystectomy 11/25/1984 History of intravascular stent placement History of tonsillectomy Pacemaker Family History Family History Mother Carcinoma of colon Father Malignant neoplasm of prostate Other Diabetes mellitus Family history of cardiovascular disease Family history of mental disorder Hypertension Social History Social History Social History: She is and lives at [facility]. She is a former smoker. She has 5 children. She is retired. Code status: Per [facility] documentation DNR/DNI Smoking packs per day: 1 Smoking cigarettes per day: 20.0 Years smoked: 20 Smoking pack-years: 20.00 Smoking status: Former smoker Tobacco type: cigarettes Second hand tobacco smoke exposure: No Smoking end date: 11/25/04 Alcohol intake: never Substance use: never Substance use type: former substance user Lack of Transportation: YES Lack of Food: Never True Current Housing: I Have Housing Concerned About Future Housing: No Difficulty Paying Gas/Electric Bills: No Difficulty Paying for Meds: No Currently Unemployed: No Education: High School Diploma/GED Difficulty w/ Childcare or Family Care: No Living arrangements: alone Occupation/Education: retired Gender identity (if verbalized by the patient): Female Sexual Orientation (if Verbalized by the Patient): Straight or Heterosexual Spiritual care concerns: No Meds Home Medications and Allergies Home Medications Medication Instructions Recorded Confirmed Type No Home Medications 11/19/23 11/19/23 History Allergies Allergy/AdvReac Type Severity Reaction Status Date / Time codeine Allergy Severe Muscle Pain Verified 10/02/23 14:47 Sulfa (Sulfonamide Allergy Intermediate upset Verified 10/02/23 14:47 Antibiotics) stomach, problem breathing amitriptyline Allergy Mild Muscle Verified 10/02/23 14:47 Spasms divalproex sodium Allergy Mild Muscle Pain Verified 10/02/23 14:47 hydrocodone Allergy Mild Muscle Pain Verified 10/02/23 14:47 cefuroxime AdvReac Severe Diarrhea, Verified 11/19/23 07:21 vomiting amlodipine AdvReac Mild Nausea Verified 11/19/23 07:21 cilostazol AdvRe
[2023-11-20 23:44] VITALS: BP 114/53; PULSE 69; RESP 16; TEMP 36.3; O2SAT 92
[2023-11-21] MEDS: MORPHINE SULFATE INJ (*CRX) 50 MG in SODIUM CHLORIDE 0.9% IV 95 ML IV CONT (03:22)
[2023-11-21] MEDS: ARTIFICIAL TEARS OPHTH SOLN 15 ML BOTTLE 1 DROP EACH EYE ×2 (09:17→23:22)
--- NOTE | 2023-11-21 17:42 | PM.IMPN ---
Progress Note: A&P Assessment and Plan (1) Palliative care encounter: Code(s): Z51.5 - Encounter for palliative care Status: Acute Assessment and Plan: Meets inpatient hospice criteria due to requiring continuous IV morphine for symptom control PRN palliative regimen ordered 11/20/2023 discussed care prognosis with family at bedside (2) Cerebral hemorrhage with cognitive deficits: Code(s): I61.9 - Nontraumatic intracerebral hemorrhage, unspecified; R41.89 - Other symptoms and signs involving cognitive functions and awareness Status: Acute (3) Dementia: Qualifiers: Dementia type: vascular dementia Dementia severity: severe Dementia behavioral or psychological symptom: with agitation Qualified Code(s): F01.C11 - Vascular dementia, severe, with agitation Code(s): F03.90 - Unspecified dementia, unspecified severity, without behavioral disturbance, psychotic disturbance, mood disturbance, and anxiety Status: Acute (4) Coronary artery disease involving [place] coronary artery of [place] heart: Code(s): I25.10 - Atherosclerotic heart disease of [place] coronary artery without angina pectoris Status: Acute (5) Essential (primary) hypertension: Code(s): I10 - Essential (primary) hypertension Status: Acute Subjective Date/time seen: 11/21/23 17:42 Interval history: Remains comfortable with family at bedside. Review of Systems Review of Systems: ROS unobtainable: Yes unobtainable due to medical condition Exam Narrative: Gen: Chronically ill-appearing elderly female lying in hospital bed no acute distress Neck: Without JVD Chest: Clear to auscultation with normal effort Heart: Normal S1 and S2 with rate regular and no audible murmur Abd: Hypoactive bowel sounds with soft abdomen and no palpable tenderness and no obvious mass Extr: No edema MS: No gross deformity to visual inspection Neuro: Cranial nerves symmetric deficient Psych: Unresponsive to verbal or light tactile stim Objective Data Vital Signs Vital Signs: Vital Signs - 24 hr 11/20/23 23:44 11/21/23 08:00 Temperature 97.4 F L Pulse Rate 69 Respiratory Rate 16 Blood Pressure 114/53 L Pulse Oximetry 92 Oxygen Delivery Room Air Intake/Output Intake/Output: Intake & Output 11/18/23 11/19/23 11/20/23 11/21/23 23:59 23:59 23:59 23:59 Intake Total 100 Balance 100 Meds/Results Medications: Active Medications Generic Name Dose Route Start Last Admin Trade Name Freq PRN Reason Stop Dose Admin Acetaminophen 650 mg 11/19/23 21:55 Acetaminophen 650 Mg Suppository RECTAL Q4H PRN Fever Artificial Tears 1 drop 11/19/23 22:00 11/21/23 09:17 Artificial Tears Ophth Soln 15 Ml Bottle EACH EYE 1 drop Q12H ARELI Administration Artificial Tears 1 drop 11/19/23 22:00 Artificial Tears Ophth Soln 15 Ml Bottle EACH EYE PRN PRN Dry Eye(s) Bisacodyl 10 mg 11/20/23 09:00 11/21/23 09:15 Bisacodyl 10 Mg Suppository RECTAL Not Given DAILY ARELI Diazepam 5 mg 11/19/23 22:49 11/19/23 22:58 Diazepam Inj (*Crx) 10 Mg/2 Ml Syringe IV PUSH 5 mg Q4H PRN Administration Anxiety Glycopyrrolate 0.1 mg 11/19/23 22:00 Glycopyrrolate Inj (*Sp) 0.2 Mg/Ml Vial IV PUSH Q4H PRN INCREASED secretions Morphine Sulfate 50 mg/ Sodium 100 mls @ 2 mls/hr 11/19/23 21:55 11/21/23 03:22 Chloride IV CONT 1 mg/hr .Q24H ARELI 2 mls/hr Administration 1 MG/HR Morphine Sulfate 2 mg 11/19/23 21:55 11/19/23 22:09 Morphine Sulfate (*Crx) 2 Mg/Ml Inj IV PUSH 2 mg Q2H PRN Administration Pain Prochlorperazine Edisylate 10 mg 11/19/23 21:58 Prochlorperazine Edisylate 10 Mg/2 Ml Vial IV PUSH Q4H PRN Nausea And Vomiting
[2023-11-22 06:28] VITALS: BP 116/51; PULSE 70; RESP 5; TEMP 35.6; O2SAT 94
[2023-11-22 08:00] VITALS: O2SAT 94
[2023-11-22] MEDS: ARTIFICIAL TEARS OPHTH SOLN 15 ML BOTTLE 1 DROP EACH EYE ×2 (13:00→21:30)
[2023-11-22] MEDS: MORPHINE SULFATE INJ (*CRX) 50 MG in SODIUM CHLORIDE 0.9% IV 95 ML IV CONT (13:58)
[2023-11-22] MEDS: diazePAM INJ (*CRX) 10 MG/2 ML SYRINGE 5 MG IV PUSH ×2 (13:58→20:59)
[2023-11-22 14:30] VITALS: BP 145/63; PULSE 70; RESP 10; TEMP 35.9; O2SAT 94
--- NOTE | 2023-11-22 17:32 | PM.IMPN ---
Progress Note: A&P Assessment and Plan (1) Palliative care encounter: Code(s): Z51.5 - Encounter for palliative care Status: Acute Assessment and Plan: Meets inpatient hospice criteria due to requiring continuous IV morphine for symptom control PRN palliative regimen ordered 11/20/2023 discussed care prognosis with family at bedside (2) Cerebral hemorrhage with cognitive deficits: Code(s): I61.9 - Nontraumatic intracerebral hemorrhage, unspecified; R41.89 - Other symptoms and signs involving cognitive functions and awareness Status: Acute (3) Dementia: Qualifiers: Dementia behavioral or psychological symptom: with agitation Dementia severity: severe Dementia type: vascular dementia Qualified Code(s): F01.C11 - Vascular dementia, severe, with agitation Code(s): F03.90 - Unspecified dementia, unspecified severity, without behavioral disturbance, psychotic disturbance, mood disturbance, and anxiety Status: Acute (4) Coronary artery disease involving [place] coronary artery of [place] heart: Code(s): I25.10 - Atherosclerotic heart disease of [place] coronary artery without angina pectoris Status: Acute (5) Essential (primary) hypertension: Code(s): I10 - Essential (primary) hypertension Status: Acute Subjective Date/time seen: 11/22/23 17:32 Interval history: Remains comfortable with family at bedside. Review of Systems Review of Systems: ROS unobtainable: Yes unobtainable due to medical condition Exam Narrative: Gen: Chronically ill-appearing elderly female lying in hospital bed no acute distress Neck: Without JVD Chest: Clear to auscultation with normal effort Heart: Normal S1 and S2 with rate regular and no audible murmur Abd: Hypoactive bowel sounds with soft abdomen and no palpable tenderness and no obvious mass Extr: No edema MS: No gross deformity to visual inspection Neuro: Cranial nerves symmetric deficient Psych: Unresponsive to verbal or light tactile stim Objective Data Vital Signs Vital Signs: Vital Signs - 24 hr 11/21/23 20:15 11/22/23 06:28 11/22/23 08:00 Temperature 96.1 F L Pulse Rate 70 Respiratory Rate 5 L Blood Pressure 116/51 L Pulse Oximetry 94 94 Oxygen Delivery Room Air Room Air 11/22/23 14:30 Temperature 96.6 F L Pulse Rate 70 Respiratory Rate 10 L Blood Pressure 145/63 H Pulse Oximetry 94 Oxygen Delivery Intake/Output Intake/Output: Intake & Output 11/19/23 11/20/23 11/21/23 11/22/23 23:59 23:59 23:59 23:59 Intake Total 100 75 Balance 100 75 Meds/Results Medications: Active Medications Generic Name Dose Route Start Last Admin Trade Name Freq PRN Reason Stop Dose Admin Acetaminophen 650 mg 11/19/23 21:55 Acetaminophen 650 Mg Suppository RECTAL Q4H PRN Fever Artificial Tears 1 drop 11/19/23 22:00 11/22/23 13:00 Artificial Tears Ophth Soln 15 Ml Bottle EACH EYE 1 drop Q12H ARELI Administration Artificial Tears 1 drop 11/19/23 22:00 Artificial Tears Ophth Soln 15 Ml Bottle EACH EYE PRN PRN Dry Eye(s) Bisacodyl 10 mg 11/20/23 09:00 11/22/23 14:00 Bisacodyl 10 Mg Suppository RECTAL Not Given DAILY ARELI Diazepam 5 mg 11/19/23 22:49 11/22/23 13:58 Diazepam Inj (*Crx) 10 Mg/2 Ml Syringe IV PUSH 5 mg Q4H PRN Administration Anxiety Glycopyrrolate 0.1 mg 11/19/23 22:00 Glycopyrrolate Inj (*Sp) 0.2 Mg/Ml Vial IV PUSH Q4H PRN INCREASED secretions Morphine Sulfate 50 mg/ Sodium 100 mls @ 2 mls/hr 11/19/23 21:55 11/22/23 13:58 Chloride IV CONT 1 mg/hr .Q24H ARELI 2 mls/hr Administration 1 MG/HR Morphine Sulfate 2 mg 11/19/23 21:55 11/19/23 22:09 Morphine Sulfate (*Crx) 2 Mg/Ml Inj IV PUSH 2 mg Q2H PRN Administration Pain Prochlorperazine Edisylate 10 mg 11/19/23 21:58 Prochlorperazine Edisylate 10 Mg/2 Ml Vial IV PUSH Q4H
[2023-11-22 20:00] VITALS: O2SAT 99
[2023-11-22 21:44] VITALS: BP 102/45; PULSE 70; RESP 10; TEMP 36.4; O2SAT 99
[2023-11-23 08:00] VITALS: O2SAT 94
[2023-11-23 09:00] VITALS: BP 117/51; PULSE 70; RESP 10; TEMP 36.9; O2SAT 87
--- NOTE | 2023-11-23 10:22 | PM.IMPN ---
Progress Note: A&P Assessment and Plan (1) Palliative care encounter: Code(s): Z51.5 - Encounter for palliative care Status: Acute Assessment and Plan: Meets inpatient hospice criteria due to requiring continuous IV morphine for symptom control PRN palliative regimen ordered 11/20/2023 discussed care prognosis with family at bedside 11/23/2023 son expressed desire to discuss with his siblings disabling Mrs. Ashford's pacemaker (2) Cerebral hemorrhage with cognitive deficits: Code(s): I61.9 - Nontraumatic intracerebral hemorrhage, unspecified; R41.89 - Other symptoms and signs involving cognitive functions and awareness Status: Acute (3) Dementia: Qualifiers: Dementia behavioral or psychological symptom: with agitation Dementia severity: severe Dementia type: vascular dementia Qualified Code(s): F01.C11 - Vascular dementia, severe, with agitation Code(s): F03.90 - Unspecified dementia, unspecified severity, without behavioral disturbance, psychotic disturbance, mood disturbance, and anxiety Status: Acute (4) Coronary artery disease involving [place] coronary artery of [place] heart: Code(s): I25.10 - Atherosclerotic heart disease of [place] coronary artery without angina pectoris Status: Acute (5) Essential (primary) hypertension: Code(s): I10 - Essential (primary) hypertension Status: Acute Subjective Date/time seen: 11/23/23 10:22 Interval history: Remains comfortable with family at bedside. Review of Systems Review of Systems: ROS unobtainable: Yes unobtainable due to medical condition Exam Narrative: Gen: Chronically ill-appearing elderly female lying in hospital bed no acute distress Neck: Without JVD Chest: Clear to auscultation with normal effort Heart: Normal S1 and S2 with rate regular and no audible murmur Abd: Hypoactive bowel sounds with soft abdomen and no palpable tenderness and no obvious mass Extr: No edema MS: No gross deformity to visual inspection Neuro: Cranial nerves symmetric deficient Psych: Unresponsive to verbal or light tactile stim Objective Data Vital Signs Vital Signs: Vital Signs - 24 hr 11/22/23 14:30 11/22/23 21:44 11/22/23 20:00 Temperature 96.6 F L 97.6 F Pulse Rate 70 70 Respiratory Rate 10 L 10 L Blood Pressure 145/63 H 102/45 L Pulse Oximetry 94 99 99 Oxygen Delivery Room Air 11/23/23 09:00 Temperature 98.4 F Pulse Rate 70 Respiratory Rate 10 L Blood Pressure 117/51 L Pulse Oximetry 87 L Oxygen Delivery Intake/Output Intake/Output: Intake & Output 11/20/23 11/21/23 11/22/23 11/23/23 23:59 23:59 23:59 23:59 Intake Total 100 75 Balance 100 75 Meds/Results Medications: Active Medications Generic Name Dose Route Start Last Admin Trade Name Freq PRN Reason Stop Dose Admin Acetaminophen 650 mg 11/19/23 21:55 Acetaminophen 650 Mg Suppository RECTAL Q4H PRN Fever Artificial Tears 1 drop 11/19/23 22:00 11/22/23 21:30 Artificial Tears Ophth Soln 15 Ml Bottle EACH EYE 1 drop Q12H ARELI Administration Artificial Tears 1 drop 11/19/23 22:00 Artificial Tears Ophth Soln 15 Ml Bottle EACH EYE PRN PRN Dry Eye(s) Bisacodyl 10 mg 11/20/23 09:00 11/22/23 14:00 Bisacodyl 10 Mg Suppository RECTAL Not Given DAILY ARELI Diazepam 5 mg 11/19/23 22:49 11/22/23 20:59 Diazepam Inj (*Crx) 10 Mg/2 Ml Syringe IV PUSH 5 mg Q4H PRN Administration Anxiety Glycopyrrolate 0.1 mg 11/19/23 22:00 Glycopyrrolate Inj (*Sp) 0.2 Mg/Ml Vial IV PUSH Q4H PRN INCREASED secretions Morphine Sulfate 50 mg/ Sodium 100 mls @ 2 mls/hr 11/19/23 21:55 11/22/23 13:58 Chloride IV CONT 1 mg/hr .Q24H ARELI 2 mls/hr Administration 1 MG/HR Morphine Sulfate 2 mg 11/19/23 21:55 11/19/23 22:09 Morphine Sulfate (*Crx) 2 Mg/Ml Inj IV PUSH 2 mg Q2H PRN Administration Pain P
[2023-11-23 20:00] VITALS: O2SAT 87
[2023-11-23] MEDS: MORPHINE SULFATE INJ (*CRX) 50 MG in SODIUM CHLORIDE 0.9% IV 95 ML IV CONT (23:01)
[2023-11-24 08:00] VITALS: O2SAT 87
[2023-11-24] MEDS: diazePAM INJ (*CRX) 10 MG/2 ML SYRINGE 5 MG IV PUSH ×2 (09:40→23:08)
[2023-11-24] MEDS: MORPHINE SULFATE (*CRX) 2 MG/ML INJ IV PUSH ×2 (11:10→12:15)
--- NOTE | 2023-11-24 16:23 | PM.IMPN ---
Progress Note: A&P Assessment and Plan (1) Palliative care encounter: Code(s): Z51.5 - Encounter for palliative care Status: Acute Assessment and Plan: Meets inpatient hospice criteria due to requiring continuous IV morphine for symptom control PRN palliative regimen ordered 11/20/2023 discussed care prognosis with family at bedside 11/24/2023 son and daughter wish to forego pacemaker deactivation (2) Cerebral hemorrhage with cognitive deficits: Code(s): I61.9 - Nontraumatic intracerebral hemorrhage, unspecified; R41.89 - Other symptoms and signs involving cognitive functions and awareness Status: Acute (3) Dementia: Qualifiers: Dementia type: vascular dementia Dementia severity: severe Dementia behavioral or psychological symptom: with agitation Qualified Code(s): F01.C11 - Vascular dementia, severe, with agitation Code(s): F03.90 - Unspecified dementia, unspecified severity, without behavioral disturbance, psychotic disturbance, mood disturbance, and anxiety Status: Acute (4) Coronary artery disease involving [place] coronary artery of [place] heart: Code(s): I25.10 - Atherosclerotic heart disease of [place] coronary artery without angina pectoris Status: Acute (5) Essential (primary) hypertension: Code(s): I10 - Essential (primary) hypertension Status: Acute Subjective Date/time seen: 11/24/23 16:23 Interval history: Remains comfortable with family at bedside. Review of Systems Review of Systems: ROS unobtainable: Yes unobtainable due to medical condition Exam Narrative: Gen: Chronically ill-appearing elderly female lying in hospital bed no acute distress Neck: Without JVD Chest: Clear to auscultation with normal effort Heart: Normal S1 and S2 with rate regular and no audible murmur Abd: Hypoactive bowel sounds with soft abdomen and no palpable tenderness and no obvious mass Extr: No edema MS: No gross deformity to visual inspection Neuro: Cranial nerves symmetric deficient Psych: Unresponsive to verbal or light tactile stim Objective Data Vital Signs Vital Signs: Vital Signs - 24 hr 11/23/23 20:00 11/24/23 08:00 Pulse Oximetry 87 L 87 L Oxygen Delivery Nasal Cannula Nasal Cannula Oxygen Flow Rate 2 2 Intake/Output Intake/Output: Intake & Output 11/21/23 11/22/23 11/23/23 11/24/23 23:59 23:59 23:59 23:59 Intake Total 100 75 100 Balance 100 75 100 Meds/Results Medications: Active Medications Generic Name Dose Route Start Last Admin Trade Name Freq PRN Reason Stop Dose Admin Acetaminophen 650 mg 11/19/23 21:55 Acetaminophen 650 Mg Suppository RECTAL Q4H PRN Fever Artificial Tears 1 drop 11/19/23 22:00 11/24/23 11:47 Artificial Tears Ophth Soln 15 Ml Bottle EACH EYE Not Given Q12H ARELI Artificial Tears 1 drop 11/19/23 22:00 Artificial Tears Ophth Soln 15 Ml Bottle EACH EYE PRN PRN Dry Eye(s) Bisacodyl 10 mg 11/20/23 09:00 11/24/23 11:47 Bisacodyl 10 Mg Suppository RECTAL Not Given DAILY ARELI Diazepam 5 mg 11/19/23 22:49 11/24/23 09:40 Diazepam Inj (*Crx) 10 Mg/2 Ml Syringe IV PUSH 5 mg Q4H PRN Administration Anxiety Glycopyrrolate 0.1 mg 11/19/23 22:00 Glycopyrrolate Inj (*Sp) 0.2 Mg/Ml Vial IV PUSH Q4H PRN INCREASED secretions Morphine Sulfate 50 mg/ Sodium 100 mls @ 2 mls/hr 11/19/23 21:55 11/23/23 23:01 Chloride IV CONT 1 mg/hr .Q24H ARELI 2 mls/hr Administration 1 MG/HR Morphine Sulfate 2 mg 11/19/23 21:55 11/24/23 11:10 Morphine Sulfate (*Crx) 2 Mg/Ml Inj IV PUSH 2 mg Q2H PRN Administration Pain Prochlorperazine Edisylate 10 mg 11/19/23 21:58 Prochlorperazine Edisylate 10 Mg/2 Ml Vial IV PUSH Q4H PRN Nausea And Vomiting
[2023-11-24] MEDS: MORPHINE SULFATE INJ (*CRX) 50 MG in SODIUM CHLORIDE 0.9% IV 95 ML IV CONT (23:07)
[2023-11-25 07:42] VITALS: PULSE 71; RESP 18; TEMP 36.8; O2SAT 91
[2023-11-25 08:00] VITALS: PULSE 71; RESP 18; O2SAT 91
[2023-11-25] MEDS: MORPHINE SULFATE (*CRX) 2 MG/ML INJ IV PUSH (10:36)
[2023-11-25] MEDS: diazePAM INJ (*CRX) 10 MG/2 ML SYRINGE 5 MG IV PUSH (11:13)
[2023-11-25] MEDS: ARTIFICIAL TEARS OPHTH SOLN 15 ML BOTTLE 1 DROP EACH EYE (11:29)
--- NOTE | 2023-11-25 11:29 | PC.NURSE ---
Breakthrough Morphine and Valium given per family request. HOB elevated, secretions improving.
--- NOTE | 2023-11-25 16:24 | P.DN_ITS ---
Discharge Summary Date and Time Date of : 11/25/23 Time of : 14:54 Provider Pronounced By: Puja Lopez RN, Varsha Ayers RN Probable Cause of Probable Cause of : cerebral hemorrhage Summary Hospital Course: Admitted inpatient hospice service for symptom control. Medications titrated to comfort Mrs. Ashford peacefully. Additional Data Confirmation of as documented by pronouncing clinician: Palpable Pulses, Response to Stimuli, Heart Tones and Breath Sounds Name of Provider Notified: Dr. Truong Time Provider Notified: 15:25 Provider Requests Autopsy: No [employer] Notified: Yes Date [facility] Notified of : 11/25/23 Time [facility] Notified of : 15:18
== END 2023-11-25 14:54 | disposition expired | DRG 951 ==
PROVIDERS: Admitting Provider Internal Medicine; PCP Family Medicine; Visit Provider Internal Medicine
DX: Z51.5 Encounter for palliative care (principal); I61.9 Nontraumatic intracerebral hemorrhage, unspecified; R41.89 Other symptoms and signs involving cognitive functions and awareness; F03.90 Unspecified dementia, unspecified severity, without behavioral disturbance, psychotic disturbance, mood disturbance, and anxiety; I25.10 Atherosclerotic heart disease of native coronary artery without angina pectoris; I10 Essential (primary) hypertension; J44.9 Chronic obstructive pulmonary disease, unspecified; K21.9 Gastro-esophageal reflux disease without esophagitis; E11.9 Type 2 diabetes mellitus without complications; E78.5 Hyperlipidemia, unspecified; G47.33 Obstructive sleep apnea (adult) (pediatric); I73.9 Peripheral vascular disease, unspecified; M17.0 Bilateral primary osteoarthritis of knee; Z87.891 Personal history of nicotine dependence; Z95.820 Peripheral vascular angioplasty status with implants and grafts; Z86.73 Personal history of transient ischemic attack (TIA), and cerebral infarction without residual deficits; Z98.49 Cataract extraction status, unspecified eye; Z95.5 Presence of coronary angioplasty implant and graft; Z90.49 Acquired absence of other specified parts of digestive tract; Z95.0 Presence of cardiac pacemaker; Z86.16 Personal history of COVID-19; Z66 Do not resuscitate
CPT/HCPCS: A9270; J2270; J3360